=== PATIENT | male | born 1955 | race Caucasian/White ===

== ENCOUNTER 2016-12-23 20:52 | Emergency (ER) | payer MEDICARE, MEDICAID ==
[2016-12-23 21:03] VITALS: BP 117/80
--- NOTE | 2016-12-23 21:36 | EDM.PDOC ---
ED HPI Trauma - General Chief Complaint: Lower Extremity Injury/Pain Stated Complaint: LEFT LEG INJURY Time Seen by Provider: 12/23/16 21:19 Source: Reports: Patient History Limitations: Reports: No limitations - History of Present Illness INITIAL COMMENTS - FREE TEXT/NARRATIVE: Patient presents with left knee, lower leg and foot pain after stepping wrong on left leg while going down stairs earlier this evening. He denies numbness, head injury or injury to arms or wrists. Allergies/ADRs: Allergies galantamine [Galantamine] Allergy (Mild, Verified 12/23/16 21:18) Itching hydrocodone Allergy (Verified 12/23/16 21:18) Confusion came in confused on 02/28/16, checked with [place] provider and patient becomes confused with hydrocodone Home Medications: Ambulatory Orders fluvoxaMINE Maleate [Fluvoxamine Maleate ER] 200 mg PO DAILY 10/09/13 [ Confirmed 12/23/16] OXcarbazepine [Trileptal] 450 mg PO BID 01/06/14 [Confirmed 12/23/16] risperiDONE [RisperiDAL] 1 mg PO BEDTIME 12/06/14 [Confirmed 12/23/16] ALPRAZolam [Alprazolam] 1 mg PO BID 10/19/15 [Confirmed 12/23/16] Cyclobenzaprine [Flexeril] 10 mg PO TID 01/24/16 [Confirmed 12/23/16] Gabapentin [Gabapentin] 600 mg PO Q6H PRN 01/24/16 [Confirmed 12/23/16] Gabapentin [Neurontin] 300 mg PO BEDTIME 01/24/16 [Confirmed 12/23/16] risperiDONE [risperiDONE] 0.5 mg PO BID 01/24/16 [Confirmed 12/23/16] Baclofen [Lioresal] 10 mg PO DAILY 07/01/16 [Confirmed 12/23/16] Omeprazole 20 mg PO DAILY 07/01/16 [Confirmed 12/23/16] atorvaSTATin [Lipitor] 20 mg PO BEDTIME 07/01/16 [Confirmed 12/23/16] diphenhydrAMINE [Benadryl] 50 mg PO BEDTIME 07/01/16 [Confirmed 12/23/16] Past Medical History - Past Health History Medical/Surgical History: Denies Medical/Surgical History HEENT History: Reports: Impaired vision, Other (see below) Other HEENT History: wound to left side of the eye. 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 trigeminal nueralgia Psychiatric History: Reports: Mood swings Other Psychiatric History: none Endocrine/Metabolic History: Reports: Obesity/BMI 30+ Hematologic History: Reports: Anticoagulation therapy Dermatologic History: Reports: Other (see below) Other Dermatologic History: Open sores to face - Infectious Disease History Infectious Disease History: Reports: Measles, MRSA - Past Surgical History HEENT Surgical History: Reports: Tonsillectomy Cardiovascular Surgical History: Reports: None Respiratory Surgical History: Reports: None GI Surgical History: Reports: None Male Surgical History: Reports: None Musculoskeletal Surgical History: Reports: None Social & Family History - Family History Family Medical History: Noncontributory Cardiac: Reports: Prior cardiac arrest, Stent Endocrine/Metabolic: Reports: Diabetes, type II Oncologic: Reports: Bone - Tobacco Use Smoking Status *Q: Current Every Day Smoker Years of Tobacco use: 40 Packs/Tins Daily: 1 Used Tobacco, but Quit: No Month Tobacco Last Used: july 2015 Second Hand Smoke Exposure: Yes - Alcohol Use Days Per Week of Alcohol Use: 0 - Recreational Drug Use Recreational Drug Use: No Drug Use in Last 12 Months: No - Living Situation & Occupation Living situation: Reports: single, with significant other Occupation: disabled Review of Systems - Review of Systems Review Of Systems: See Below Constitutional: Denies: chills, fever Eyes: Denies: vision change Ears: Denies: dizziness Respiratory: Denies: Shortness of Breath Cardiovascular: Denies: chest pain, syncope GI/Abdominal: Denies: Vomiting Musculoskeletal: Denies: neck pain, shoulder pain, arm pain, back pain, hand pain Skin: Denies: cyanosis, jaundice, mottled, pallor, diaphoresis Neurological: Denies: Confusion, Dizziness Trauma Exam - Physical Exam Exam: See Below Exam Limited By: No limitations General Appearance: Reports: alert, WD/WN, no apparent distress Head: Reports: atraumatic, normocephalic Ears: Reports: normal external exam, hearing grossly normal Throat/Mouth: Reports: Normal voice, No airway compromise Neck: Reports: full range of motion Respiratory Exam: Reports: no respiratory distress, lungs clear, normal breath sounds Cardiovascular: Reports: regular rate, rhythm, no murmur Extremities: Reports: pain with movement (left knee flexion), tenderness (to palpation of lateral left knee and proximal dorsal left foot. No deformity or crepitus noted.). Denies: joint effusion (and no swelling), unable to bear weight (can bear weight) Neurologic: Reports: no motor/sensory deficits, alert, normal mood/affect, oriented x 3 Skin: Reports: Normal color, Warm/dry - Alexander Coma Score Best Eye Response (Alexander): (4) open spontaneously Best Verbal Response (Alexander): (5) oriented Best Motor Response ([place]): (6) obeys commands Course - Vital Signs Last Recorded V/S: Last Vital Signs Temp 98.0 F 12/23/16 21:00 Pulse 97 12/23/16 21:00 Resp 20 12/23/16 21:00 BP 117/80 12/23/16 21:00 Pulse Ox 96 12/23/16 21:00 - Orders/Labs/Meds Orders: Active Orders 24 hr Category Date Time Status Foot 2V Lt [CR] Stat Exams 12/23/16 21:05 Ordered Foot Comp Min 3V Lt [CR] Stat Exams 12/23/16 21:24 Ordered Knee 1V or 2V Lt [CR] Stat Exams 12/23/16 21:05 Ordered Knee 3V Lt [CR] Stat Exams 12/23/16 21:24 Ordered Tibia Fibula Lt [CR] Stat Exams 12/23/16 21:24 Ordered - Re-Assessments/Exams Free Text/Narrative Re-Assessment/Exam: 12/23/16 22:11 Xrays show no evidence of fracture or dislocation or knee, tib/fib or foot (left ). Discussed findings and treatment plan with patient after fitting him with a knee immobilizer. He expressed significant reduction in pain with the support and is able to put full weight on the leg without pain. Pt stable at discharge. Departure - Departure Time of Disposition: 21:54 Disposition: Home, Self-Care 01 Condition: good Clinical Impression: Left knee sprain Qualifiers: Encounter type: initial encounter Involved ligament of knee: unspecified ligament Qualified Code(s): S83.92XA - Sprain of unspecified site of left knee, initial encounter Instructions: Knee Sprain, [id number] Forms: ED Department Discharge Additional Instructions: 1. Wear knee immobilizer for 1-2 weeks as needed for support and comfort. 2. Use Ibuprofen 600 mg three times a day as needed for pain or Tylenol 650 mg up to three times a day as needed for pain. 3. Follow up with your PCP if worsening or if not improving in a week. - My Orders Last 24 Hours: My Active Orders 12/23/16 21:05 Foot 2V Lt [CR] Stat Knee 1V or 2V Lt [CR] Stat 12/23/16 21:24 Foot Comp Min 3V Lt [CR] Stat Knee 3V Lt [CR] Stat Tibia Fibula Lt [CR] Stat - Assessment/Plan Last 24 Hours: My Active Orders 12/23/16 21:05 Foot 2V Lt [CR] Stat Knee 1V or 2V Lt [CR] Stat 12/23/16 21:24 Foot Comp Min 3V Lt [CR] Stat Knee 3V Lt [CR] Stat Tibia Fibula Lt [CR] Stat
== END 2016-12-23 22:15 | disposition home or self-care (01) ==
LOC: KA.ED 20:52
DX: S83.92XA Sprain of unspecified site of left knee, initial encounter (principal); E78.00 Pure hypercholesterolemia, unspecified; I10 Essential (primary) hypertension; I25.2 Old myocardial infarction; J44.9 Chronic obstructive pulmonary disease, unspecified; E66.9 Obesity, unspecified; F17.210 Nicotine dependence, cigarettes, uncomplicated; Z98.890 Other specified postprocedural states; Z88.6 Allergy status to analgesic agent; Z88.8 Allergy status to other drugs, medicaments and biological substances; W10.9XXA Fall (on) (from) unspecified stairs and steps, initial encounter
CPT/HCPCS: 73562-LT; 73590-LT; 73630-LT; 99283

== ENCOUNTER 2017-01-04 09:29 | Emergency (ER) | payer MEDICARE, MEDICAID ==
[2017-01-04 10:03] VITALS: BP 145/74
--- NOTE | 2017-01-04 10:13 | EDM.PDOC ---
ED HPI Trauma - General Chief Complaint: Lower Extremity Injury/Pain Stated Complaint: ankle pain Time Seen by Provider: 01/04/17 10:00 Source: Reports: Patient History Limitations: Reports: No limitations - History of Present Illness INITIAL COMMENTS - FREE TEXT/NARRATIVE: 61 YO WM presents to ER complaining of left foot and left ankle pain after tripping over his dog this am. Pt was seen December 23 2016 for knee injury. Pt has a nondisplaced and incomplete fracture of lateral tibial plateau. Pt denies any other injury after fall today. Symptom Onset Date: 01/04/17 Occurred When: this morning Occurred Where: home Method of Injury: fall Severity: mild Pain/Injury Location: Reports: lower extremity, left Consciousness: Reports: no loss of consciousness Associated Symptoms: Reports: no other symptoms Allergies/ADRs: Allergies galantamine [Galantamine] Allergy (Mild, Verified 01/04/17 09:51) Itching hydrocodone Allergy (Verified 01/04/17 09:51) Confusion came in confused on 02/28/16, checked with [place] provider and patient becomes confused with hydrocodone Home Medications: Ambulatory Orders fluvoxaMINE Maleate [Fluvoxamine Maleate ER] 200 mg PO DAILY 10/09/13 [ Confirmed 01/04/17] OXcarbazepine [Trileptal] 450 mg PO BID 01/06/14 [Confirmed 01/04/17] risperiDONE [RisperiDAL] 1 mg PO BEDTIME 12/06/14 [Confirmed 01/04/17] ALPRAZolam [Alprazolam] 1 mg PO BID 10/19/15 [Confirmed 01/04/17] Cyclobenzaprine [Flexeril] 10 mg PO TID 01/24/16 [Confirmed 01/04/17] Gabapentin [Gabapentin] 600 mg PO Q6H PRN 01/24/16 [Confirmed 01/04/17] Gabapentin [Neurontin] 300 mg PO BEDTIME 01/24/16 [Confirmed 01/04/17] risperiDONE [risperiDONE] 0.5 mg PO BID 01/24/16 [Confirmed 01/04/17] Baclofen [Lioresal] 10 mg PO DAILY 07/01/16 [Confirmed 01/04/17] Omeprazole 20 mg PO DAILY 07/01/16 [Confirmed 01/04/17] atorvaSTATin [Lipitor] 20 mg PO BEDTIME 07/01/16 [Confirmed 01/04/17] diphenhydrAMINE [Benadryl] 50 mg PO BEDTIME 07/01/16 [Confirmed 01/04/17] Past Medical History - Past Health History Medical/Surgical History: Denies Medical/Surgical History HEENT History: Reports: Impaired vision, Other (see below) Other HEENT History: wound to left side of the eye. 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 trigeminal nueralgia Psychiatric History: Reports: Anxiety, Mood swings Other Psychiatric History: none Endocrine/Metabolic History: Reports: Obesity/BMI 30+ Hematologic History: Reports: Anticoagulation therapy Dermatologic History: Reports: Other (see below) Other Dermatologic History: Open sores to face - Infectious Disease History Infectious Disease History: Reports: Measles, MRSA - Past Surgical History HEENT Surgical History: Reports: Tonsillectomy Cardiovascular Surgical History: Reports: None Respiratory Surgical History: Reports: None GI Surgical History: Reports: None Male Surgical History: Reports: None Musculoskeletal Surgical History: Reports: None Social & Family History - Family History Family Medical History: Noncontributory Cardiac: Reports: Prior cardiac arrest, Stent Endocrine/Metabolic: Reports: Diabetes, type II Oncologic: Reports: Bone - Tobacco Use Smoking Status *Q: Current Every Day Smoker Years of Tobacco use: 40 Packs/Tins Daily: 1 Used Tobacco, but Quit: No Month Tobacco Last Used: july 2015 Second Hand Smoke Exposure: Yes - Caffeine Use Caffeine Use: Reports: Soda - Alcohol Use Days Per Week of Alcohol Use: 0 - Recreational Drug Use Recreational Drug Use: No Drug Use in Last 12 Months: No Recreational Drug Type: Reports: Marijuana/Hashish Recreational Drug Use Frequency: Not Used In Over 6 Months - Living Situation & Occupation Living situation: Reports: single, with significant other Occupation: disabled Review of Systems - Review of Systems Review Of Systems: See Below Constitutional: Reports: no symptoms Eyes: Reports: no symptoms Ears: Reports: no symptoms Nose: Reports: no symptoms Mouth/Throat: Reports: no symptoms Respiratory: Reports: No Symptoms Cardiovascular: Reports: no symptoms GI/Abdominal: Reports: No symptoms Musculoskeletal: Reports: leg pain, foot pain Neurological: Reports: No Symptoms Psychiatric: Reports: no symptoms Trauma Exam - Physical Exam Exam: See Below Exam Limited By: No limitations General Appearance: Reports: alert, WD/WN, no apparent distress Head: Reports: atraumatic, normocephalic Eyes: bilateral eye: PERRL Ears: Reports: normal external exam, normal canal, hearing grossly normal, normal TMs Nose: Reports: normal inspection, normal mucousa, no blood Throat/Mouth: Reports: Normal inspection, Normal lips, Normal teeth, Normal gums , Normal oropharynx, Normal voice, No airway compromise Neck: Reports: non-tender, full range of motion, normal alignment, normal inspection Respiratory Exam: Reports: no respiratory distress, lungs clear, normal breath sounds Cardiovascular: Reports: normal peripheral pulses, regular rate, rhythm, no edema, no gallop, no JVD, no murmur, no rub GI/Abdominal: Reports: normal bowel sounds, soft, non tender, no organomegaly, no distention, no abnormal bruit, no mass Back: Reports: full range of motion, normal inspection, non-tender Extremities: Reports: bony-point tenderness, pain with movement Neurologic: Reports: 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, no motor/sensory deficits, alert , normal mood/affect, oriented x 3 Skin: Reports: Normal color, Warm/dry Course - Vital Signs Last Recorded V/S: Last Vital Signs Temp 37.3 C 01/04/17 10:02 Pulse 73 01/04/17 10:02 Resp 18 01/04/17 10:02 BP 145/74 H 01/04/17 10:02 Pulse Ox 96 01/04/17 10:02 - Orders/Labs/Meds Orders: Active Orders 24 hr Category Date Time Status Ankle Min 3V Lt [CR] Stat Exams 01/04/17 09:43 Ordered Foot Comp Min 3V Lt [CR] Stat Exams 01/04/17 09:42 Ordered Departure - Departure Time of Disposition: 10:16 Disposition: Home, Self-Care 01 Condition: good Clinical Impression: Left ankle sprain Qualifiers: Encounter type: initial encounter Involved ligament of ankle: unspecified ligament Qualified Code(s): S93.402A - Sprain of unspecified ligament of left ankle, initial encounter Sprain of foot, left Qualifiers: Encounter type: initial encounter Qualified Code(s): S93.602A - Unspecified sprain of left foot, initial encounter Instructions: Ankle Sprain, [id number], Foot Sprain Referrals: Mal Gonsalez, PST MANAGER [Primary Care Provider] - Forms: ED Department Discharge - My Orders Last 24 Hours: My Active Orders 01/04/17 09:42 Foot Comp Min 3V Lt [CR] Stat 01/04/17 09:43 Ankle Min 3V Lt [CR] Stat - Assessment/Plan Last 24 Hours: My Active Orders 01/04/17 09:42 Foot Comp Min 3V Lt [CR] Stat 01/04/17 09:43 Ankle Min 3V Lt [CR] Stat Assessment:: 1. left ankle sprain 2. left foot sprain Plan: 1. continue knee immobilizer and crutches 2. follow up with Mal Gonsalez as scheduled today 3. toradol for pain
[2017-01-04] MEDS ORDERED: Ketorolac 60 MG/2 ML SDV IM ONE (10:16)
== END 2017-01-04 10:30 | disposition home or self-care (01) ==
LOC: KA.ED 09:29
DX: S93.402A Sprain of unspecified ligament of left ankle, initial encounter (principal); S93.602A Unspecified sprain of left foot, initial encounter; H54.7 Unspecified visual loss; E78.00 Pure hypercholesterolemia, unspecified; J44.9 Chronic obstructive pulmonary disease, unspecified; E66.9 Obesity, unspecified; F17.210 Nicotine dependence, cigarettes, uncomplicated; Z88.5 Allergy status to narcotic agent; Z79.899 Other long term (current) drug therapy; W01.0XXA Fall on same level from slipping, tripping and stumbling without subsequent striking against object, initial encounter
CPT/HCPCS: 73610; 73620; 96372; 99283; J1885

== ENCOUNTER 2017-03-14 17:49 | Emergency (ER) | payer MEDICARE, MEDICAID ==
--- NOTE | 2017-03-14 18:27 | EDM.PDOC ---
ED HPI GENERAL MEDICAL PROBLEM - General Chief Complaint: Upper Extremity Injury/Pain Stated Complaint: RIGHT ARM SWOLLEN Time Seen by Provider: 03/14/17 18:21 Source of Information: Reports: Patient History Limitations: Reports: No Limitations - History of Present Illness INITIAL COMMENTS - FREE TEXT/NARRATIVE: PT PRESENTS WITH PAIN AND SWELLING OF RIGHT ELBOW. ANTERIOR ASPECT MORE PAINFUL. NO SWELLING OR PAIN PROXIMAL OR DISTAL OF RUE. DENIES ANY INJURY, FEVER , CP, SOB, RADICULAR PAIN, IV DRUG USE, RECENT IV INSERTION OR NEEDLE STICK. Onset: Today Onset Date: 03/14/17 Location: Reports: Upper Extremity, Right Quality: Reports: Pressure Severity: Mild Improves with: Reports: None Worsens with: Reports: None Associated Symptoms: Reports: No Other Symptoms right elbow and upper arm Pain Score (Numeric/FACES): 9 - Related Data Allergies Allergy/AdvReac Type Severity Reaction Status Date / Time galantamine [Galantamine] Allergy Mild Itching Verified 03/14/17 18:16 bee venom protein (honey bee) Allergy Swelling Verified 03/14/17 18:16 hydrocodone Allergy Confusion Verified 03/14/17 18:16 Home Meds: Home Meds fluvoxaMINE Maleate [Fluvoxamine Maleate ER] 200 mg PO DAILY 10/09/13 [History] OXcarbazepine [Trileptal] 450 mg PO BID 01/06/14 [History] risperiDONE [RisperiDAL] 1 mg PO BEDTIME 12/06/14 [History] ALPRAZolam [Alprazolam] 1 mg PO BID 10/19/15 [History] Cyclobenzaprine [Flexeril] 10 mg PO TID 01/24/16 [History] Gabapentin [Gabapentin] 600 mg PO Q6H PRN 01/24/16 [History] Gabapentin [Neurontin] 300 mg PO BEDTIME 01/24/16 [History] risperiDONE [risperiDONE] 0.5 mg PO BID 01/24/16 [History] Baclofen [Lioresal] 10 mg PO DAILY 07/01/16 [History] Omeprazole 20 mg PO DAILY 07/01/16 [History] atorvaSTATin [Lipitor] 20 mg PO BEDTIME 07/01/16 [History] diphenhydrAMINE [Benadryl] 50 mg PO BEDTIME 07/01/16 [History] Past Medical History - Past Health History Medical/Surgical History: Denies Medical/Surgical History HEENT History: Reports: Impaired Vision, Other (See Below) Other HEENT History: wound to left side of the eye. 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 trigeminal nueralgia Psychiatric History: Reports: Anxiety, Mood Swings Other Psychiatric History: none Endocrine/Metabolic History: Reports: Obesity/BMI 30+ Hematologic History: Reports: Anticoagulation Therapy Dermatologic History: Reports: Other (See Below) Other Dermatologic History: Open sores to face - Infectious Disease History Infectious Disease History: Reports: Measles, MRSA - Past Surgical History GI Surgical History: Reports: None Male Surgical History: Reports: None Social & Family History - Family History Family Medical History: Noncontributory Cardiac: Reports: Prior Cardiac Arrest, Stent Endocrine/Metabolic: Reports: Diabetes, type II Oncologic: Reports: Bone - Tobacco Use Smoking Status *Q: Current Every Day Smoker Years of Tobacco use: 40 Packs/Tins Daily: 1 Used Tobacco, but Quit: No Month Tobacco Last Used: March 2017 Second Hand Smoke Exposure: Yes - Caffeine Use Caffeine Use: Reports: Soda - Alcohol Use Days Per Week of Alcohol Use: 0 - Recreational Drug Use Recreational Drug Use: No Drug Use in Last 12 Months: No Recreational Drug Type: Reports: Marijuana/Hashish Recreational Drug Use Frequency: Not Used In Over 6 Months - Living Situation & Occupation Living situation: Reports: Single, with Significant Other Occupation: Disabled Review of Systems - Review of Systems Review Of Systems: ROS reveals no pertinent complaints other than HPI. Constitutional: Reports: No Symptoms Eyes: Reports: No Symptoms Ears: Reports: No Symptoms Nose: Reports: No Symptoms Mouth/Throat: Reports: No Symptoms Respiratory: Reports: No Symptoms Cardiovascular: Reports: No Symptoms GI/Abdominal: Reports: No Symptoms Genitourinary: Reports: No Symptoms Musculoskeletal: Reports: Arm Pain (RIGHT ELBOW) Skin: Reports: Other (LEFT ANTERIOR ELBOW EDEMA AND TENDER TO PALP) Neurological: Reports: No Symptoms Psychiatric: Reports: No Symptoms ED EXAM, GENERAL - Physical Exam Exam: See Below Exam Limited By: No Limitations General Appearance: Alert, WD/WN, No Apparent Distress Throat/Mouth: Normal Inspection, Normal Oropharynx, No Airway Compromise Head: Atraumatic, Normocephalic Respiratory/Chest: No Respiratory Distress, Lungs Clear Cardiovascular: Regular Rate, Rhythm, No Murmur Extremities: Arm Pain (RIGHT ANTECUBITAL EDEMA / BRACHIAL VEIN TORTUOUS / NO DISTAL OR PROXIMAL EDEMA NOTED) Neurological: Alert, Oriented, Normal Cognition Psychiatric: Normal Affect, Normal Mood Skin Exam: Warm, Dry, Intact, Normal Color, No Rash Lymphatic: No Adenopathy Course - Vital Signs Last Recorded V/S: Last Vital Signs Temp 98.7 F 03/14/17 17:54 Pulse 90 03/14/17 17:54 Resp 20 03/14/17 17:54 BP 114/67 03/14/17 17:54 Pulse Ox 94 L 03/14/17 17:54 - Re-Assessments/Exams Free Text/Narrative Re-Assessment/Exam: 03/14/17 18:30 PT AFEBRILE, NONTOXIC APPEARING, VSS. WILL HAVE PT UNDERGO US OF RUE AT 1100 TOMORROW Departure - Departure Time of Disposition: 18:29 Disposition: Home, Self-Care 01 Condition: Good Clinical Impression: Edema of upper extremity - Discharge Information Instructions: Phlebitis, [id number] Forms: ED Department Discharge Additional Instructions: FOLLOW UP TOMORROW AT 1100 FOR ULTRASOUND - Assessment/Plan Assessment:: RIGHT ARM PAIN AND SWELLING Plan: US IN AM
== END 2017-03-14 18:35 | disposition home or self-care (01) ==
LOC: KA.ED 17:49
CPT/HCPCS: 99283

== ENCOUNTER 2017-08-21 09:35 | Emergency (ER) | payer MEDICARE, MEDICAID ==
[2017-08-21] MEDS ORDERED: Sodium Chloride 0.9% 1,000 ML IV ONE ×2 (10:10→11:20)
--- NOTE | 2017-08-21 10:12 | EDM.PDOC ---
ED HPI GENERAL MEDICAL PROBLEM - General Chief Complaint: Syncope Time Seen by Provider: 08/21/17 09:52 Source of Information: Reports: Patient History Limitations: Reports: No Limitations - History of Present Illness INITIAL COMMENTS - FREE TEXT/NARRATIVE: Patient presents to ER with shortness of breath and syncopal episode. He fell and hit the left side of his face he says. He says the shortness of breath has been going on for a week but is worse today. Pt has known MRSA and a chronic left facial open wound that he picks and scratches that has been present for years. Treatments HAT IRONER: Reports: Oxygen, Other (see below) Other Treatments HAT IRONER: iv - Related Data Allergies Allergy/AdvReac Type Severity Reaction Status Date / Time galantamine [Galantamine] Allergy Mild Itching Verified 03/14/17 18:16 bee venom protein (honey bee) Allergy Swelling Verified 03/14/17 18:16 hydrocodone Allergy Confusion Verified 03/14/17 18:16 Home Meds: Home Meds fluvoxaMINE Maleate [Fluvoxamine Maleate ER] 200 mg PO BEDTIME 10/09/13 [History ] OXcarbazepine [Trileptal] 450 mg PO BID 01/06/14 [History] risperiDONE [RisperiDAL] 1 mg PO BID 12/06/14 [History] ALPRAZolam [Alprazolam] 1 mg PO BID PRN 10/19/15 [History] Gabapentin [Gabapentin] 600 mg PO Q6H PRN 01/24/16 [History] Gabapentin [Neurontin] 300 mg PO BEDTIME 01/24/16 [History] risperiDONE [risperiDONE] 0.5 mg PO BEDTIME 01/24/16 [History] Omeprazole 20 mg PO DAILY 07/01/16 [History] diphenhydrAMINE [Benadryl] 50 mg PO BEDTIME 07/01/16 [History] Doxepin HCl [Doxepin] 20 mg PO BEDTIME 08/21/17 [History] Rivaroxaban [Xarelto] 20 mg PO DAILY@1800 08/21/17 [History] fluvoxaMINE [Luvox] 150 mg PO DAILY 08/21/17 [History] Past Medical History - Past Health History Medical/Surgical History: Denies Medical/Surgical History HEENT History: Reports: Impaired Vision, Other (See Below) Other HEENT History: wound to left side of the eye. left eye is covered by a telfa that is covering wound on face Cardiovascular History: Reports: Arrhythmia, Blood Clots/VTE/DVT, High Cholesterol, Hypertension, [place] Respiratory History: Reports: Bronchitis, Recurrent, COPD, PE Gastrointestinal History: Reports: PUD Musculoskeletal History: Reports: Fracture, Other (See Below) Other Musculoskeletal History: osteomyelitis, face Neurological History: Reports: Other (See Below) Other Neuro History: brain surgery to cover nerve endings x 2 last surgery 1999. trigeminal nueralgia Psychiatric History: Reports: Anxiety, Mood Swings Other Psychiatric History: none Endocrine/Metabolic History: Reports: Obesity/BMI 30+ Hematologic History: Reports: Anticoagulation Therapy Dermatologic History: Reports: Other (See Below) Other Dermatologic History: Open sores to face - Infectious Disease History Infectious Disease History: Reports: Measles, MRSA - Past Surgical History GI Surgical History: Reports: None Male Surgical History: Reports: None Social & Family History - Family History Family Medical History: Noncontributory Cardiac: Reports: Prior Cardiac Arrest, Stent Endocrine/Metabolic: Reports: Diabetes, type II Oncologic: Reports: Bone - Tobacco Use Smoking Status *Q: Current Every Day Smoker Years of Tobacco use: 40 Packs/Tins Daily: 1 Used Tobacco, but Quit: No Month Tobacco Last Used: March 2017 Second Hand Smoke Exposure: Yes - Caffeine Use Caffeine Use: Reports: Soda - Alcohol Use Days Per Week of Alcohol Use: 0 - Recreational Drug Use Recreational Drug Use: No Drug Use in Last 12 Months: No Recreational Drug Type: Reports: Marijuana/Hashish Recreational Drug Use Frequency: Not Used In Over 6 Months - Living Situation & Occupation Living situation: Reports: Single, with Significant Other Occupation: Disabled ED ROS GENERAL - Review of Systems Review Of Systems: See Below Constitutional: Denies: Fever, Chills HEENT: Reports: Ear Discharge (left eye has purulent discharge and is covered by a patch that is covering the entire left side of patient's face whenever he is out in public). Denies: Throat Pain, Vision Change (he says he can see out of left eye okay) Respiratory: Reports: Shortness of Breath, Cough Cardiovascular: Reports: Blood Pressure Problem (low today), Lightheadedness, Syncope. Denies: Chest Pain GI/Abdominal: Denies: Abdominal Pain, Nausea, Vomiting : Denies: Dysuria Musculoskeletal: Denies: Neck Pain, Shoulder Pain, Arm Pain, Back Pain Skin: Denies: Cyanosis, Jaundice, Mottled, Pallor, Diaphoresis Neurological: Reports: Syncope. Denies: Confusion, Dizziness, Headache, Seizure Psychiatric: Denies: Agitation, Confusion - Physical Exam Exam: See Below General Appearance: Alert (sleepy), WD/WN, No Apparent Distress Eye Exam: Right Eye: Normal Inspection (left has purulent drainage; this is chronic), PERRL Ears: Normal External Exam, Normal Canal, Hearing Grossly Normal, Normal TMs Nose: Normal Inspection, No Blood Throat/Mouth: Normal Voice, No Airway Compromise, Other Head Exam: Normocephalic, Facial Lacerations (chronic open wound on left cheek from corner of mouth to lower eyelid from OCD scratching and picking) Respiratory/Chest: No Respiratory Distress, Crackles (R>L lung bases), Rhonchi ( transient), Wheezing (transient) Cardiovascular: Normal Peripheral Pulses, Regular Rate, Rhythm GI/Abdominal: Normal Bowel Sounds, Soft, Non-Tender, No Organomegaly Neuro Exam (Abbreviated): Alert, Oriented, Normal Cognition, No Motor/Sensory Deficits Extremities: Normal Inspection, Normal Range of Motion, No Pedal Edema Psychiatric: Flat Affect Skin Exam: Warm, Dry, Normal Color, No Rash Course - Vital Signs Last Recorded V/S: Last Vital Signs Temp 96.4 F 08/21/17 09:56 Pulse 45 L 08/21/17 11:54 Resp 16 08/21/17 11:54 BP 84/44 L 08/21/17 11:54 Pulse Ox 95 08/21/17 11:54 - Orders/Labs/Meds Orders: Active Orders 24 hr Category Date Time Status EKG Documentation Completion [RC] ASDIRECTED Care 08/21/17 12:05 Active Chest 2V [CR] Stat Exams 08/21/17 10:07 Taken Head wo Cont [CT] Stat Exams 08/21/17 10:07 Taken CULTURE BLOOD [BC] Stat Lab 08/21/17 10:20 Received CULTURE BLOOD [BC] Stat Lab 08/21/17 10:25 Received Blood Culture x2 Reflex Set [OM.PC] Stat Oth 08/21/17 10:07 Ordered EKG 12 Lead [EK] Routine Ther 08/21/17 12:05 Ordered Labs: Laboratory Tests 08/21/17 08/21/17 08/21/17 Range/Units 09:55 09:55 09:55 WBC 7.7 (5.0-10.0) 10^3/uL RBC 3.52 L (4.50-6.00) 10^6/uL Hgb 10.8 L (13.0-17.0) g/dL Hct 33.0 L (40.0-52.0) % MCV 93.9 H (82.0-92.0) fL MCH 30.8 (27.0-31.0) pg MCHC 32.8 (32.0-36.0) g/dL RDW 15.0 H (11.5-14.5) % Plt Count 303 H (150-300) 10^3/uL MPV 7.1 L (7.4-10.4) fL Neut % (Auto) 59.6 (50.0-70.0) % Lymph % (Auto) 26.1 (20.0-40.0) % Becker % (Auto) 10.4 H (2.0-8.0) % Eos % (Auto) 3.1 H (1.0-3.0) % Baso % (Auto) 0.8 (0.0-1.0) % Neut # (Auto) 4.6 (2.5-7.0) 10^3/uL Lymph # (Auto) 2.0 (1.0-4.0) 10^3/uL Becker # (Auto) 0.8 (0.1-0.8) 10^3/uL Eos # (Auto) 0.2 (0.1-0.3) 10^3/uL Baso # (Auto) 0.1 (0.0-0.1) 10^3/uL Sodium 138 (136-145) mmol/L Potassium 3.8 (3.3-5.3) mmol/L Chloride 104 (98-115) mmol/L Carbon Dioxide 27.3 (21.0-32.0) mmol/L BUN 16 (6-25) mg/dL Creatinine 1.74 H (0.51-1.17) mg/dL Est Cr Clr Drug Dosing 46.62 mL/min Estimated GFR (MDRD) 40 mL/min Glucose 108 (70-110) mg/dL Lactic Acid 1.0 (0.4-2.0) mmol/L Calcium 7.8 L (8.7-10.3) mg/dL Troponin I (0.00-0.070) ng/mL B-Natriuretic Peptide (0-100) pg/mL 08/21/17 08/21/17 Range/Units 09:55 10:07 WBC (5.0-10.0) 10^3/uL RBC (4.50-6.00) 10^6/uL Hgb (13.0-17.0) g/dL Hct (40.0-52.0) % MCV (82.0-92.0) fL MCH (27.0-31.0) pg MCHC (32.0-36.0) g/dL RDW (11.5-14.5) % Plt Count (150-300) 10^3/uL MPV (7.4-10.4) fL Neut % (Auto) (50.0-70.0) % Lymph % (Auto) (20.0-40.0) % Becker % (Auto) (2.0-8.0) % Eos % (Auto) (1.0-3.0) % Baso % (Auto) (0.0-1.0) % Neut # (Auto) (2.5-7.0) 10^3/uL Lymph # (Auto) (1.0-4.0) 10^3/uL Becker # (Auto) (0.1-0.8) 10^3/uL Eos # (Auto) (0.1-0.3) 10^3/uL Baso # (Auto) (0.0-0.1) 10^3/uL Sodium (136-145) mmol/L Potassium (3.3-5.3) mmol/L Chloride (98-115) mmol/L Carbon Dioxide (21.0-32.0) mmol/L BUN (6-25) mg/dL Creatinine (0.51-1.17) mg/dL Est Cr Clr Drug Dosing mL/min Estimated GFR (MDRD) mL/min Glucose (70-110) mg/dL Lactic Acid (0.4-2.0) mmol/L Calcium (8.7-10.3) mg/dL Troponin I 0.06 (0.00-0.070) ng/mL B-Natriuretic Peptide 21 (0-100) pg/mL Meds: Medications Discontinued Medications Generic Name Dose Route Start Last Admin Trade Name Filipe PRN Reason Stop Dose Admin Sodium Chloride 1,000 mls @ 999 mls/hr 08/21/17 10:10 08/21/17 10:00 Normal Saline IV 08/21/17 11:10 999 mls/hr .BOLUS ONE Administration Sodium Chloride 1,000 mls @ 999 mls/hr 08/21/17 11:20 08/21/17 11:21 Normal Saline IV 08/21/17 12:20 999 mls/hr .BOLUS ONE Administration - Re-Assessments/Exams Free Text/Narrative Re-Assessment/Exam: 08/21/17 12:45 Patient remains hypotensive and bradycardic after 2.5 liters of saline IV. Labs and CXR show no evidence of pneumonia. EKG shows sinus bradycardia at 40 bpm. BNP, troponin, and lactic acid are normal. Patient is on Xarelto for history of DVT/PE. 08/21/17 13:[address] Fisher (cardiology) and Dr. Belcher (ED) at [facility]. They accept for transfer to ER. Patient has remained stable throughout ER course. Departure - Departure Time of Disposition: 13:14 Disposition: DC/Tfer to Acute Hospital 02 Condition: Good Clinical Impression: Sinus bradycardia, Personal history of MRSA (methicillin resistant Staphylococcus aureus) Hypotension Qualifiers: Hypotension type: unspecified hypotension type Qualified Code(s): I95.9 - Hypotension, unspecified - Discharge Information Referrals: PCP,Unobtain [Primary Care Provider] - Forms: ED Department Discharge - My Orders Last 24 Hours: My Active Orders 08/21/17 10:07 Chest 2V [CR] Stat Head wo Cont [CT] Stat Blood Culture x2 Reflex Set [OM.PC] Stat 08/21/17 10:20 CULTURE BLOOD [BC] Stat 08/21/17 10:25 CULTURE BLOOD [BC] Stat 08/21/17 12:05 EKG Documentation Completion [RC] ASDIRECTED EKG 12 Lead [EK] Routine - Assessment/Plan Last 24 Hours: My Active Orders 08/21/17 10:07 Chest 2V [CR] Stat Head wo Cont [CT] Stat Blood Culture x2 Reflex Set [OM.PC] Stat 08/21/17 10:20 CULTURE BLOOD [BC] Stat 08/21/17 10:25 CULTURE BLOOD [BC] Stat 08/21/17 12:05 EKG Documentation Completion [RC] ASDIRECTED EKG 12 Lead [EK] Routine
[2017-08-21 11:55] VITALS: BP 84/44
== END 2017-08-21 13:35 ==
LOC: KA.ED 09:35
DX: I95.9 Hypotension, unspecified (principal); R00.1 Bradycardia, unspecified; Z86.14 Personal history of Methicillin resistant Staphylococcus aureus infection; I10 Essential (primary) hypertension; E78.00 Pure hypercholesterolemia, unspecified; Z79.01 Long term (current) use of anticoagulants; F17.210 Nicotine dependence, cigarettes, uncomplicated; Z79.899 Other long term (current) drug therapy; Z88.5 Allergy status to narcotic agent; Z88.8 Allergy status to other drugs, medicaments and biological substances; Z91.030 Bee allergy status; R06.02 Shortness of breath
CPT/HCPCS: 36415; 70450; 71010; 80048; 83605; 83880; 84484; 85025; 87040; 93005; 96360; 96361; 99284; 99285; J7030

== ENCOUNTER 2018-12-25 19:25 | Emergency (ER) | payer MEDICARE, MEDICAID ==
[2018-12-25 19:41] VITALS: BP 121/67
--- NOTE | 2018-12-25 19:42 | EDM.PDOC ---
ED HPI GENERAL MEDICAL PROBLEM - General Chief Complaint: Chest Pain Stated Complaint: RIGHT SIDE CHEST PRESSURE Time Seen by Provider: 12/25/18 19:41 Source of Information: Reports: Patient History Limitations: Reports: No Limitations - History of Present Illness INITIAL COMMENTS - FREE TEXT/NARRATIVE: Was raking his yard yesterday wearing only a light T-shirt and got slightly chilled. Today upon awakening had pleuritic type chest wall discomfort predominantly right posterior chest wall as well as into right axilla. Pain only with motion specifically inspiration and raising of arm positioning chest wall. Denies fever or chills. Denies any left sided discomfort, shortness of breath, chest pressure or other cardiac-like symptoms. Has had pleurisy in the past but does not remember when. Onset: Today Onset Date: 12/25/18 Onset Time: 09:00 Duration: Hour(s):, Chronic, Recurring Location: Reports: Chest, Upper Extremity, Right Quality: Reports: Burning, Sharp Severity: Moderate Improves with: Reports: None Worsens with: Reports: Breathing, Movement Context: Reports: Activity Associated Symptoms: Reports: No Other Symptoms Right Chest Pain Score (Numeric/FACES): 6 - Related Data Allergies Allergy/AdvReac Type Severity Reaction Status Date / Time galantamine [Galantamine] Allergy Mild Itching Verified 12/25/18 19:42 bee venom protein (honey bee) Allergy Swelling Verified 12/25/18 19:42 hydrocodone Allergy Confusion Verified 12/25/18 19:42 Home Meds: Home Meds fluvoxaMINE Maleate [Fluvoxamine Maleate ER] 200 mg PO BEDTIME 10/09/13 [History ] OXcarbazepine [Trileptal] 450 mg PO BID 01/06/14 [History] risperiDONE [RisperiDAL] 1 mg PO BID 12/06/14 [History] ALPRAZolam [Alprazolam] 1 mg PO BID PRN 10/19/15 [History] risperiDONE 0.5 mg PO BEDTIME 01/24/16 [History] Doxepin HCl [Doxepin] 10 mg PO TID 08/21/17 [History] fluvoxaMINE [Luvox] 150 mg PO DAILY 08/21/17 [History] Rivaroxaban [Xarelto] 10 mg PO DAILY@1800 12/25/18 [History] Past Medical History HEENT History: Reports: Impaired Vision, Other (See Below) Other HEENT History: wound to left side of the eye. left eye is covered by a telfa that is covering wound on face Cardiovascular History: Reports: Arrhythmia, Blood Clots/VTE/DVT, High Cholesterol, Hypertension, [place] Respiratory History: Reports: Bronchitis, Recurrent, COPD, PE Gastrointestinal History: Reports: PUD Musculoskeletal History: Reports: Fracture, Other (See Below) Other Musculoskeletal History: osteomyelitis, face Neurological History: Reports: Other (See Below) Other Neuro History: brain surgery to cover nerve endings x 2 last surgery 1999. trigeminal nueralgia Psychiatric History: Reports: Anxiety, Mood Swings Other Psychiatric History: none Endocrine/Metabolic History: Reports: Obesity/BMI 30+ Hematologic History: Reports: Anticoagulation Therapy Dermatologic History: Reports: Other (See Below) Other Dermatologic History: Open sores to face - Infectious Disease History Infectious Disease History: Reports: Measles, MRSA - Past Surgical History Other Head Surgeries/Procedures: Trigeminal neuralgia nerve block GI Surgical History: Reports: None Male Surgical History: Reports: None Social & Family History - Family History Family Medical History: Noncontributory Cardiac: Reports: Prior Cardiac Arrest, Stent Endocrine/Metabolic: Reports: Diabetes, type II Oncologic: Reports: Bone - Tobacco Use Smoking Status *Q: Current Every Day Smoker Tobacco Use Within Last Twelve Months: Cigarettes Used Tobacco, but Quit: No Smoking Cessation Information Provided To Patient: Patient Refused Second Hand Smoke Exposure: No Second Hand Smoke Education Provided: No - Caffeine Use Caffeine Use: Reports: Soda - Alcohol Use Alcohol Use History: No Alcohol Use in Last Twelve Months: No - Living Situation & Occupation Living situation: Reports: Single, with Significant Other Occupation: Disabled ED ROS GENERAL - Review of Systems Review Of Systems: See Below Constitutional: Reports: No Symptoms HEENT: Reports: Other (Chronic facial nerve involvement) Respiratory: Reports: No Symptoms Cardiovascular: Reports: No Symptoms. Denies: Dyspnea on Exertion, Edema, Orthopnea Endocrine: Reports: No Symptoms GI/Abdominal: Reports: No Symptoms : Reports: No Symptoms Musculoskeletal: Reports: Shoulder Pain, Other Skin: Reports: Other (Chronic nerve change) Neurological: Reports: Pre-Existing Deficit Psychiatric: Reports: No Symptoms Hematologic/Lymphatic: Reports: No Symptoms Immunologic: Reports: No Symptoms ED EXAM, GENERAL - Physical Exam Exam: See Below Free Text/Narrative:: Alert oriented seated in no distress. Numerous tattoos to the Chest and arms. Left-sided face is covered and he prefers to leave it that way secondary of his neurogenic issues with his trigeminal neuralgia, this prevents him from picking and rubbing. [place] moist mucous membranes Neck soft supple no lymphadenopathy Thorax is clear fine rhonchi on the right side with fremitus posterior right side as well as tenderness to palpation and tenderness with motion and deep breath. Left-sided chest is benign other than tattoo no pain no abnormal breath sounds. Abdomen soft bowel sounds present Lower extremities free of edema moves about with no difficulty. Discussed options as likely pleuritic chest wall pain or the possibility pneumonia with his smoking habituation of which she is not interested in cessation. General Appearance: Alert, WD/WN, No Apparent Distress Ears: Normal External Exam, Normal Canal, Hearing Grossly Normal, Normal TMs Nose: Normal Inspection, Normal Mucosa, No Blood Throat/Mouth: Normal Inspection, Normal Lips, Normal Teeth, Normal Gums, Normal Oropharynx, Normal Voice, No Airway Compromise Neck: Normal Inspection Respiratory/Chest: No Respiratory Distress, Lungs Clear, Rhonchi Cardiovascular: Normal Peripheral Pulses, No Murmur GI/Abdominal: Normal Bowel Sounds, Soft, Non-Tender, No Organomegaly, No Distention, No Abnormal Bruit, No Mass (Male) Exam: Deferred Rectal (Males) Exam: Deferred Back Exam: Normal Inspection (No noted rash mild tenderness right posterior rib margin changes with inspiration and expiration as well as fremitus) Extremities: Normal Inspection Neurological: Alert, Oriented, Normal Cognition, Normal Gait, No Motor/Sensory Deficits Psychiatric: Normal Affect, Normal Mood Skin Exam: Warm (Several tattoos), Dry, Intact, Normal Color, No Rash Lymphatic: No Adenopathy Course - Vital Signs Text/Narrative:: With the renal impairment that shows on his laboratory analysis a very hesitant to give him any type of anti-inflammatory analgesic at this time. As pleuritic pain is typically only benefited from anti-inflammatory I find no use in providing opiate or other forms of analgesia at this time. Strongly encouraged to see his provider to discuss medication and other options prior to any further renal distruction. Last Recorded V/S: Last Vital Signs Temp 36.1 C 12/25/18 19:38 Pulse 76 12/25/18 19:38 Resp 16 12/25/18 19:38 BP 121/67 12/25/18 19:38 Pulse Ox 97 12/25/18 19:38 - Orders/Labs/Meds Labs: Laboratory Tests 12/25/18 12/25/18 Range/Units 20:10 20:10 WBC 7.07 (5.00-10.00) 10^3/uL RBC 4.03 L (4.50-6.00) 10^6/uL Hgb 13.1 (13.0-17.0) g/dL Hct 38.7 L (40.0-52.0) % MCV 96.0 H (82.0-92.0) fL MCH 32.5 H (27.0-31.0) pg MCHC 33.9 (32.0-36.0) g/dL RDW 15.6 H (11.5-14.5) % Plt Count 292 (150-400) 10^3/uL MPV 9.4 (7.4-10.4) fL Immature Gran % (Auto) 0.1 (0.0-5.0) % Neut % (Auto) 50.1 (50.0-70.0) % Lymph % (Auto) 37.2 (20.0-40.0) % Russell % (Auto) 8.8 H (2.0-8.0) % Eos % (Auto) 3.1 H (1.0-3.0) % Baso % (Auto) 0.7 (0.0-1.0) % Immature Gran # (Auto) 0.01 (0.00-0.50) 10^3/uL Neut # (Auto) 3.54 (2.50-7.00) 10^3/uL Lymph # (Auto) 2.63 (1.00-4.00) 10^3/uL Russell # (Auto) 0.62 (0.10-0.80) 10^3/uL Eos # (Auto) 0.22 (0.10-0.30) 10^3/uL Baso # (Auto) 0.05 (0.00-0.10) 10^3/uL Sodium 137 (136-145) mmol/L Potassium 3.9 (3.3-5.3) mmol/L Chloride 99 (98-115) mmol/L Carbon Dioxide 26.6 (21.0-32.0) mmol/L Anion Gap 15.3 H (5-15) mmol/L BUN 15 (6-25) mg/dL Creatinine 1.53 H (0.51-1.17) mg/dL Est Cr Clr Drug Dosing 50.70 mL/min Estimated GFR (MDRD) 47 mL/min Glucose 90 (75 - 99) mg/dL Calcium 8.5 L (8.7-10.3) mg/dL Departure - Departure Time of Disposition: 20:55 Disposition: Home, Self-Care 01 Condition: Fair Clinical Impression: Atypical chest pain, Right-sided chest wall pain, Renal function impairment - Discharge Information *PRESCRIPTION DRUG MONITORING PROGRAM REVIEWED*: Not Applicable *COPY OF PRESCRIPTION DRUG MONITORING REPORT IN PATIENT TOÑO: Not Applicable Referrals: Mal Gonsalez SAWMILL HAND [Primary Care Provider] - Forms: ED Department Discharge Additional Instructions: He need to increase her water intake history kidney number puts it in stage III chronic failure pattern. Contact Mal at the clinic as you need to repeat lab work and discussed with him medication management and treatment options for your overall health status. Chest x-ray shows the development of COPD, consider decreasing her cigarette smoking as possible. Call or return if symptoms worsen - Problem List & Annotations (1) Pleurisy SNOMED Code(s): 230138530 Code(s): R09.1 - PLEURISY Status: Acute Priority: High Current Visit: Yes Onset Date: ~12/25/18 (2) Right-sided chest wall pain SNOMED Code(s): 425060277, 630293095 Code(s): R07.89 - OTHER CHEST PAIN Status: Acute Priority: High Current Visit: Yes Onset Date: ~12/25/18 (3) Renal function impairment SNOMED Code(s): 233387522, 081160122 Code(s): N28.9 - DISORDER OF KIDNEY AND URETER, UNSPECIFIED Status: Acute Priority: High Current Visit: Yes - Problem List Review Problem List Initiated/Reviewed/Updated: Yes - Assessment/Plan Plan: He need to increase her water intake history kidney number puts it in stage III chronic failure pattern. Contact Mal at the clinic as you need to repeat lab work and discussed with him medication management and treatment options for your overall health status. Chest x-ray shows the development of COPD, consider decreasing her cigarette smoking as possible. Call or return if symptoms worsen
[2018-12-25 20:41] LABS: ANION GAP 15.3 mmol/L (5-15)
--- NOTE | 2018-12-25 20:49 | CR ---
[id number] RAD/RAD Chest PA And Lateral EXAM: FRONTAL AND LATERAL CHEST INDICATION: Pleuritic chest wall pain and hematemesis. COMPARISON: August 21, 2017. DISCUSSION: Hyperinflation is consistent with chronic obstructive pulmonary disease. Scarring in the left lung base is similar to prior studies. No definite acute infiltrates. Normal heart size. There are chronic left lower rib fractures. IMPRESSION: 1. Chronic obstructive pulmonary disease. No acute findings. Stef Ricardo MD 12/25/18 2048 Thank you for allowing us to participate in the care of your patient.
== END 2018-12-25 21:05 | disposition home or self-care (01) ==
LOC: KA.ED 19:25
DX: R07.89 Other chest pain (principal); N28.9 Disorder of kidney and ureter, unspecified; I10 Essential (primary) hypertension; E78.00 Pure hypercholesterolemia, unspecified; I25.2 Old myocardial infarction; F41.9 Anxiety disorder, unspecified; Z79.01 Long term (current) use of anticoagulants; Z79.899 Other long term (current) drug therapy; Z91.030 Bee allergy status; Z88.6 Allergy status to analgesic agent; Z88.8 Allergy status to other drugs, medicaments and biological substances
CPT/HCPCS: 36415; 71046; 80048; 85025; 99284; 99285-25

== ENCOUNTER 2019-09-15 19:06 | Emergency (ER) | payer MEDICARE, MEDICAID ==
[2019-09-15] MEDS ORDERED: Sodium Chloride 0.9% 10 ML Syringe FLUSH PRN (19:13)
--- NOTE | 2019-09-15 19:19 | EDM.PDOC ---
ED HPI GENERAL MEDICAL PROBLEM - General Chief Complaint: General Stated Complaint: STROKE?? Time Seen by Provider: 09/15/19 19:08 Source of Information: Reports: Patient History Limitations: Reports: No Limitations - History of Present Illness INITIAL COMMENTS - FREE TEXT/NARRATIVE: Joby, 64-year-old male, last seen well by his at roughly 2200 hrs. on 14 September 2019. Today experienced falls, 4, 2 while he was having smoking products, 1 day cigarette and the other is marijuana. The other 2 events were random toppling over for unknown activity when standing as he became weak. He has had episodes of weakness over the course of a few days. His tells us he is stopped his anticoagulation therapy, and is in notified Mal Gonsalez his provider of that. His vision cautioned as to the results of not being anticoagulated with his history, and is accepted the outcome of doing such. It is noted that he carries his xarelto pills with his active medications. He denies any recent illness, denies any pain chest pain, shortness of breath or other contributing factors. Onset: Today, Gradual Duration: Hour(s): Location: Reports: Head Quality: Reports: Other (Denies any pain) Associated Symptoms: Reports: No Other Symptoms - Related Data Allergies Allergy/AdvReac Type Severity Reaction Status Date / Time galantamine [Galantamine] Allergy Mild Itching Verified 09/15/19 19:24 bee venom protein (honey bee) Allergy Swelling Verified 09/15/19 19:24 hydrocodone Allergy Confusion Verified 09/15/19 19:24 Home Meds: Home Meds fluvoxaMINE Maleate [Fluvoxamine Maleate ER] 200 mg PO BEDTIME 10/09/13 [History ] OXcarbazepine [Trileptal] 450 mg PO BID 01/06/14 [History] risperiDONE [RisperiDAL] 1 mg PO BID 12/06/14 [History] ALPRAZolam [Alprazolam] 1 mg PO BID PRN 10/19/15 [History] risperiDONE 0.5 mg PO BEDTIME 01/24/16 [History] Doxepin HCl [Doxepin] 10 mg PO TID 08/21/17 [History] fluvoxaMINE [Luvox] 150 mg PO DAILY 08/21/17 [History] Rivaroxaban [Xarelto] 10 mg PO DAILY@1800 12/25/18 [History] Past Medical History HEENT History: Reports: Impaired Vision, Other (See Below) Other HEENT History: wound to left side of the eye. left eye is covered by a telfa that is covering wound on face Cardiovascular History: Reports: Arrhythmia, Blood Clots/VTE/DVT, High Cholesterol, Hypertension, DE, Syncope Respiratory History: Reports: Bronchitis, Recurrent, COPD, PE Other Respiratory History: Pleurisy Gastrointestinal History: Reports: None, PUD Musculoskeletal History: Reports: Fracture, Other (See Below) Other Musculoskeletal History: osteomyelitis, face Neurological History: Reports: Other (See Below) Other Neuro History: brain surgery to cover nerve endings x 2 last surgery 1999. trigeminal nueralgia Psychiatric History: Reports: Anxiety, Mood Swings Other Psychiatric History: none Endocrine/Metabolic History: Reports: Obesity/BMI 30+ Hematologic History: Reports: Anticoagulation Therapy (Which he is now refused to take the past couple months.) Dermatologic History: Reports: Other (See Below) Other Dermatologic History: Open sores to face - Infectious Disease History Infectious Disease History: Reports: Measles, MRSA - Past Surgical History Head Surgeries/Procedures: Reports: Craniotomy Other Head Surgeries/Procedures: Craniotomy to the posterior fossa left of midline HEENT Surgical History: Reports: None Cardiovascular Surgical History: Reports: None Respiratory Surgical History: Reports: None GI Surgical History: Reports: None Male Surgical History: Reports: None Musculoskeletal Surgical History: Reports: None Oncologic Surgical History: Reports: None Dermatological Surgical History: Reports: Plastic Surgical Reconstruction/Repair Social & Family History - Family History Family Medical History: Noncontributory Cardiac: Reports: Prior Cardiac Arrest, Stent Endocrine/Metabolic: Reports: Diabetes, type II Oncologic: Reports: Bone - Caffeine Use Caffeine Use: Reports: Soda - Living Situation & Occupation Living situation: Reports: Single, with Significant Other Occupation: Disabled ED ROS GENERAL - Review of Systems Review Of Systems: See Below Constitutional: Reports: Weakness HEENT: Reports: No Symptoms Respiratory: Reports: No Symptoms Cardiovascular: Reports: No Symptoms. Denies: Chest Pain Endocrine: Reports: Fatigue GI/Abdominal: Reports: No Symptoms : Reports: No Symptoms Musculoskeletal: Reports: No Symptoms Skin: Reports: Rash (Left side face picking), Erythema (Left sided face), Wound (Left sided face picking) Neurological: Reports: Syncope, Difficulty Walking, Weakness Psychiatric: Reports: No Symptoms Hematologic/Lymphatic: Reports: No Symptoms Immunologic: Reports: No Symptoms ED EXAM, GENERAL - Physical Exam Exam: See Below Free Text/Narrative:: Chronic picking to the left side of the face with dressing covering this is noted. No evidence of infection is noted. Exam Limited By: No Limitations General Appearance: Alert, WD/WN, No Apparent Distress Ears: Normal External Exam, Normal Canal, Hearing Grossly Normal, Normal TMs Nose: Normal Inspection, Normal Mucosa, No Blood Throat/Mouth: Normal Inspection, Normal Oropharynx, Normal Voice. No: Normal Lips, Normal Teeth Head: Atraumatic. No: Normocephalic Neck: Normal Inspection, Supple, Non-Tender, Full Range of Motion Respiratory/Chest: No Respiratory Distress, No Accessory Muscle Use, Chest Non- Tender, Rhonchi Cardiovascular: Normal Peripheral Pulses, Regular Rate, Rhythm, Bradycardia GI/Abdominal: Normal Bowel Sounds, Soft, Non-Tender, No Organomegaly, No Distention, No Abnormal Bruit, No Mass (Male) Exam: Deferred Rectal (Males) Exam: Deferred, Other Back Exam: Normal Inspection Extremities: Normal Inspection, Normal Range of Motion, Non-Tender, Normal Capillary Refill, No Pedal Edema Neurological: Alert, Oriented, CN II-XII Intact, Normal Cognition, Normal Gait, Normal Reflexes, No Motor/Sensory Deficits Psychiatric: Normal Affect, Normal Mood Skin Exam: Warm, Dry, Intact, Normal Color, No Rash Lymphatic: No Adenopathy EKG INTERPRETATION EKG Date: 09/15/19 Time: 19:20 Rate (Beats/Min): 49 (Sinus bradycardia) QRS: Normal Comparison: Change From Previous EKG EKG Interpretation Comments: Review CKG had a ventricular rate of 40 bpm Course - Vital Signs Last Recorded V/S: Last Vital Signs Temp 36.0 C 09/15/19 19:30 Pulse 46 L 09/15/19 19:30 Resp 18 09/15/19 19:30 BP 86/45 L 09/15/19 19:30 Pulse Ox 94 L 09/15/19 19:30 - Orders/Labs/Meds Labs: Laboratory Tests 09/15/19 09/15/19 09/15/19 Range/Units 19:35 19:35 19:35 WBC 7.05 (5.00-10.00) 10^3/uL RBC 3.66 L (4.50-6.00) 10^6/uL Hgb 11.7 L (13.0-17.0) g/dL Hct 36.0 L (40.0-52.0) % MCV 98.4 H (82.0-92.0) fL MCH 32.0 H (27.0-31.0) pg MCHC 32.5 (32.0-36.0) g/dL RDW 16.1 H (11.5-14.5) % Plt Count 258 (150-400) 10^3/uL MPV 9.0 (7.4-10.4) fL Immature Gran % (Auto) 0.1 (0.0-5.0) % Neut % (Auto) 69.4 (50.0-70.0) % Lymph % (Auto) 22.4 (20.0-40.0) % [place] % (Auto) 5.8 (2.0-8.0) % Eos % (Auto) 1.7 (1.0-3.0) % Baso % (Auto) 0.6 (0.0-1.0) % Immature Gran # (Auto) 0.01 (0.00-0.50) 10^3/uL Neut # (Auto) 4.89 (2.50-7.00) 10^3/uL Lymph # (Auto) 1.58 (1.00-4.00) 10^3/uL [place] # (Auto) 0.41 (0.10-0.80) 10^3/uL Eos # (Auto) 0.12 (0.10-0.30) 10^3/uL Baso # (Auto) 0.04 (0.00-0.10) 10^3/uL PT 11.1 (8.9-11.4) SEC INR 1.1 (0.9-1.1) APTT 27.2 (23.1-31.3) SEC Sodium 139 (136-145) mmol/L Potassium 4.6 (3.3-5.3) mmol/L Chloride 103 (98-115) mmol/L Carbon Dioxide 27.8 (21.0-32.0) mmol/L Anion Gap 12.8 (5-15) mmol/L BUN 16 (6-25) mg/dL Creatinine 1.67 H (0.51-1.17) mg/dL Est Cr Clr Drug Dosing 47.36 mL/min Estimated GFR (MDRD) 42 mL/min Glucose 116 H (75 - 99) mg/dL Calcium 8.4 L (8.7-10.3) mg/dL Total Bilirubin 0.3 (0.2-1.0) mg/dL AST 12 L (15-37) U/L ALT 14 (12-78) U/L Alkaline Phosphatase 70 (46-116) IU/L Creatine Kinase 98 (26-276) U/L CK-MB (CK-2) 1.40 (0.00-4.30) ng/mL Troponin I 0.05 (0.00-0.070) ng/mL Total Protein 6.6 (6.4-8.2) g/dL Albumin 3.28 (3.00-4.80) g/dL Ethyl Alcohol < 3 (NONE DETECTED) mg/dL Meds: Medications Discontinued Medications Generic Name Dose Route Start Last Admin Trade Name Freq PRN Reason Stop Dose Admin Lactated Ringer's 1,000 mls @ 999 mls/hr 09/15/19 20:30 09/15/19 20:26 Ringers, Lactated IV 999 mls/hr ASDIRECTED JONAS Administration Lactated Ringer's 1,000 mls @ 999 mls/hr 09/15/19 20:30 09/15/19 20:30 Ringers, Lactated IV 999 mls/hr ASDIRECTED JONAS Administration Sodium Chloride 10 ml 09/15/19 19:13 Saline Flush FLUSH Q8HR PRN keep vein open - Radiology Interpretation Free Text/Narrative:: CT findings for no acute intracranial findings with clear paranasal and mastoid air cells being clear unchanged craniotomy findings compared to previous. Chest x-ray is negative for any findings of acute infiltrate, effusion, pneumothorax, nor edema. - Re-Assessments/Exams Free Text/Narrative Re-Assessment/Exam: 09/15/19 21:00 Unable to urinate after 1 L fluid, second liter hung at which time discussion with family, and patient, on no evidence of acute admission criteria being met. Joby insists on going home. He is able to seated at the side of the bed with legs dangling. No deficits noted. Remains bradycardic with no compromise noted. He is able stand with no demonstrated dizziness, or unsteadiness. He is unable to ambulate briskly 2 or 3 steps stopping backing up to be seated again on the cart with no difficulty. His Maya, would prefer that he would stay for further hydration, but Joby denies, with the 2 of them agreeing that he will go home at the conclusion of the second liter of fluid. Departure - Departure Time of Disposition: 22:35 Disposition: Home, Self-Care 01 Condition: Fair Clinical Impression: Picking own skin, Anxiety, Sinus bradycardia, Syncope and collapse Anemia Qualifiers: Anemia type: unspecified type Qualified Code(s): D64.9 - Anemia, unspecified Hypotension Qualifiers: Hypotension type: unspecified hypotension type Qualified Code(s): I95.9 - Hypotension, unspecified - Discharge Information *PRESCRIPTION DRUG MONITORING PROGRAM REVIEWED*: Not Applicable *COPY OF PRESCRIPTION DRUG MONITORING REPORT IN PATIENT TOÑO: Not Applicable Instructions: Hypotension, [id number], Bradycardia, Adult, Near-Syncope, Easy -to-Read Referrals: Mal Gonsalez, CLINICAL SUPERVISOR [Primary Care Provider] - Forms: ED Department Discharge Additional Instructions: Denies the consideration of cardiac consult for pacemaker. Recommendation for observation and fluid hydration is given, but denied. He need to go home and rest. Need to continue your medications as directed. If you're not going to take your Xarelto you need to discuss with Mal if you should be on an aspirin or not. He need to make sure drinking more water as your kidney number is elevated and the fact that we gave U2 liters of fluid and you have no urge to urinate shows that you are dehydrated. Sure he gets here appointment on Monday at the clinic with Mal, to discuss this visit as well as other concerns. Sepsis Event Note - Focused Exam Date Exam was Performed: 09/18/19 Time Exam was Performed: 00:16 - Problem List & Annotations (1) Syncope and collapse SNOMED Code(s): 855873158 Code(s): R55 - SYNCOPE AND COLLAPSE Status: Acute Priority: High (2) Picking own skin SNOMED Code(s): 692614737, 002784268 Code(s): L98.1 - FACTITIAL DERMATITIS Status: Acute Priority: Medium (3) Sinus bradycardia SNOMED Code(s): 73279812 Code(s): R00.1 - BRADYCARDIA, UNSPECIFIED Status: Chronic Priority: Medium (4) Hypotension SNOMED Code(s): 80393919 Code(s): I95.9 - HYPOTENSION, UNSPECIFIED Status: Chronic Priority: Medium Qualifiers: Hypotension type: unspecified hypotension type Qualified Code(s): I95.9 - Hypotension, unspecified (5) Anxiety SNOMED Code(s): 80807042 Code(s): F41.9 - ANXIETY DISORDER, UNSPECIFIED Status: Chronic Priority: Medium (6) Chronic renal impairment SNOMED Code(s): 251734867 Code(s): N18.9 - CHRONIC KIDNEY DISEASE, UNSPECIFIED Status: Chronic Priority: Medium Qualifiers: Chronic kidney disease stage: stage 2 (mild) Qualified Code(s): N18.2 - Chronic kidney disease, stage 2 (mild) (7) Anemia SNOMED Code(s): 641215004 Code(s): D64.9 - ANEMIA, UNSPECIFIED Status: Acute Qualifiers: Anemia type: unspecified type Qualified Code(s): D64.9 - Anemia, unspecified - Problem List Review Problem List Initiated/Reviewed/Updated: Yes - Assessment/Plan Plan: Denies the opportunity for cardiac consultation or pacemaker secondary of his bradycardia. Recommendation for observation and fluid hydration is given, but denied. He need to go home and rest. Need to continue your medications as directed. If you're not going to take your Xarelto you need to discuss with Mal if you should be on an aspirin or not. He need to make sure drinking more water as your kidney number is elevated and the fact that we gave U2 liters of fluid and you have no urge to urinate shows that you are dehydrated. Sure he gets here appointment on Monday at the clinic with Mal, to discuss this visit as well as other concerns.
[2019-09-15 19:33] VITALS: BP 86/45; PULSE 46
--- NOTE | 2019-09-15 19:51 | CR ---
[id number] RAD/RAD Chest PA or AP 1V EXAM: RAD Chest PA or AP 1V INDICATION: RASPY BREATH SOUNDS COMPARISON: December 25, 2018. DISCUSSION: Cardiomediastinal silhouette is unchanged from the prior examination. No infiltrate, effusion, pneumothorax, or edema. IMPRESSION: No acute findings. Mark Roberts MD 09/15/19 1950 Thank you for allowing us to participate in the care of your patient.
--- NOTE | 2019-09-15 20:05 | CT ---
[id number] CT/CT Head WO IV EXAM: CT Head WO IV CLINICAL DATA: MENTAL STATUS CHANGE COMPARISON STUDY: 2017. FINDINGS: No intracranial hemorrhage, extra-axial fluid collection, mass, or acute ischemia. Postsurgical change from craniotomy in the posterior fossa left of midline with underlying left cerebellar hemisphere encephalomalacia. Findings are unchanged from the prior examination. Paranasal sinuses and mastoid air cells are clear. IMPRESSION: No acute intracranial findings. Mark Roberts MD 09/15/192002 Thank you for allowing us to participate in the care of your patient.
[2019-09-15 20:14] LABS: ANION GAP 12.8 mmol/L (5-15); CHLORIDE,CL 103 mmol/L (98-115); SODIUM,NA 139 mmol/L (136-145)
[2019-09-15] MEDS ORDERED: Lactated Ringers 1,000 ML IV SCH ×2 (20:30)
== END 2019-09-15 21:30 | disposition home or self-care (01) ==
LOC: KA.ED 19:06
DX: R00.1 Bradycardia, unspecified (principal); R55 Syncope and collapse; D64.9 Anemia, unspecified; I95.9 Hypotension, unspecified; F42.4 Excoriation (skin-picking) disorder; F41.9 Anxiety disorder, unspecified; J44.9 Chronic obstructive pulmonary disease, unspecified; E66.9 Obesity, unspecified; F17.210 Nicotine dependence, cigarettes, uncomplicated; Z91.030 Bee allergy status; Z88.8 Allergy status to other drugs, medicaments and biological substances; Z88.5 Allergy status to narcotic agent; Z68.30 Body mass index [BMI] 30.0-30.9, adult; Z79.899 Other long term (current) drug therapy
CPT/HCPCS: 36415; 70450; 71045; 80053; 82550; 82553; 84484; 85025; 85610; 85730; 93005; 96360; 96361; 99284; 99285; G0480; J7120

== ENCOUNTER 2019-10-16 16:20 | Emergency (ER) | payer MEDICARE, MEDICAID ==
[2019-10-16] MEDS ORDERED: Sodium Chloride 0.9% 10 ML Syringe FLUSH PRN (16:33)
[2019-10-16] MEDS ORDERED: Sodium Chloride 0.9% 1,000 ML IV ONE (16:33)
--- NOTE | 2019-10-16 16:57 | EDM.PDOC ---
ED HPI GENERAL MEDICAL PROBLEM - General Chief Complaint: General Stated Complaint: Dizziness Time Seen by Provider: 10/16/19 16:28 Source of Information: Reports: Patient, EMS, EMS Notes Reviewed, Family History Limitations: Reports: No Limitations - History of Present Illness INITIAL COMMENTS - FREE TEXT/NARRATIVE: Patient is a 64-year-old gentleman who presents to the emergency department via EMS secondary to complaint of dizziness. Patient states that symptoms have becoming increasingly worse. He has a difficult time walking and turning. Patient was seen here in September for the same symptoms. Workup was said to be negative and patient refused to be admitted to the hospital for further evaluation. Patient states dizziness seems like everything is spinning around him. Does not make a difference if he turns head right to left, or upper down. Patient denies any change in medication. 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 Patient denies chest pain, shortness of breath, headache, blurry vision, nausea, vomiting, diarrhea, abdominal pain, out of country travel, or change of recent medication. Onset: Gradual Duration: Chronic Severity: Moderate Improves with: Reports: None Worsens with: Reports: Movement Associated Symptoms: Reports: No Other Symptoms. Denies: Chest Pain, Cough, Diaphoresis, Fever/Chills, Headaches, Nausea/Vomiting, Seizure, Shortness of Breath, Syncope - Related Data Allergies Allergy/AdvReac Type Severity Reaction Status Date / Time galantamine [Galantamine] Allergy Mild Itching Verified 10/16/19 17:03 bee venom protein (honey bee) Allergy Swelling Verified 10/16/19 17:03 hydrocodone Allergy Confusion Verified 10/16/19 17:03 Home Meds: Home Meds fluvoxaMINE Maleate [Fluvoxamine Maleate ER] 200 mg PO BEDTIME 10/09/13 [History ] OXcarbazepine [Trileptal] 450 mg PO BID 01/06/14 [History] ALPRAZolam [Alprazolam] 1 mg PO BID PRN 10/19/15 [History] fluvoxaMINE [Luvox] 150 mg PO DAILY 08/21/17 [History] Rivaroxaban [Xarelto] 10 mg PO DAILY@1800 12/25/18 [History] Past Medical History - Past Health History Medical/Surgical History: Denies Medical/Surgical History HEENT History: Reports: Impaired Vision, Other (See Below) Other HEENT History: wound to left side of the eye. 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 trigeminal nueralgia Psychiatric History: Reports: Anxiety, Mood Swings Other Psychiatric History: none Endocrine/Metabolic History: Reports: Obesity/BMI 30+ Hematologic History: Reports: Anticoagulation Therapy (Which he is now refused to take the past couple months.) Dermatologic History: Reports: Other (See Below) Other Dermatologic History: Open sores to face - Infectious Disease History Infectious Disease History: Reports: Measles, MRSA - Past Surgical History Head Surgeries/Procedures: Reports: Craniotomy HEENT Surgical History: Reports: None Cardiovascular Surgical History: Reports: None Respiratory Surgical History: Reports: None GI Surgical History: Reports: None Male Surgical History: Reports: None Musculoskeletal Surgical History: Reports: None Oncologic Surgical History: Reports: None Dermatological Surgical History: Reports: Plastic Surgical Reconstruction/Repair Social & Family History - Family History Family Medical History: Noncontributory Cardiac: Reports: Prior Cardiac Arrest, Stent Endocrine/Metabolic: Reports: Diabetes, type II Oncologic: Reports: Bone - Caffeine Use Caffeine Use: Reports: Soda - Living Situation & Occupation Living situation: Reports: Single, with Significant Other Occupation: Disabled ED ROS GENERAL - Review of Systems Review Of Systems: Comprehensive ROS is negative, except as noted in HPI. Constitutional: Reports: No Symptoms HEENT: Reports: No Symptoms Respiratory: Reports: No Symptoms Cardiovascular: Reports: No Symptoms Endocrine: Reports: No Symptoms GI/Abdominal: Reports: No Symptoms : Reports: No Symptoms Musculoskeletal: Reports: No Symptoms Skin: Reports: Other (History of Dermatillomania to left face) Psychiatric: Reports: Anxiety, Other (History of Dermatillomania) Hematologic/Lymphatic: Reports: No Symptoms Immunologic: Reports: No Symptoms ED EXAM, DIZZINESS - Physical Exam Exam: See Below Exam Limited By: No Limitations General Appearance: Alert, No Apparent Distress, Lethargic, Thin Eye Exam: Right Eye: Normal Inspection Nystagmus: short duration (Resolved in ER). No: worsens with head to L, worsens with head to R, reproducible Ears: Normal External Exam, Normal Canal, Normal TMs Nose: Normal Inspection, No Blood Throat/Mouth: Normal Inspection, Normal Oropharynx, No Airway Compromise Head Exam: Atraumatic, Normocephalic Neck: Normal Inspection, Supple, Non-Tender, Full Range of Motion. No: Lymphadenopathy (L), Lymphadenopathy (R) Respiratory/Chest: No Respiratory Distress, Lungs Clear, Normal Breath Sounds, No Accessory Muscle Use, Chest Non-Tender Cardiovascular: No Murmur, Bradycardia GI/Abdominal: Normal Bowel Sounds, Soft, Non-Tender, No Organomegaly, No Distention, No Abnormal Bruit, No Mass Neurological: Alert, Normal Mood/Affect, CN II-XII Intact, Oriented x 3 Back Exam: Normal Inspection. No: CVA Tenderness (L), CVA Tenderness (R) Extremities: Normal Inspection, No Pedal Edema Psychiatric: Normal Affect, Normal Mood Skin Exam: Warm, Dry, Intact, Normal Color, No Rash EKG INTERPRETATION EKG Date: 10/16/19 Time: 16:45 Rhythm: Other (Sinus bradycardia) Rate (Beats/Min): 40 Christmas: Normal P-Wave: Present QRS: Normal ST-T: Normal QT: Normal Comparison: No Change (From 09/15/2019) Course - Vital Signs Last Recorded V/S: Last Vital Signs Temp 97.4 F 10/16/19 16:40 Pulse 44 L 10/16/19 17:55 Resp 17 10/16/19 17:55 BP 122/54 L 10/16/19 17:55 Pulse Ox 94 L 10/16/19 17:55 - Orders/Labs/Meds Orders: Active Orders 24 hr Category Date Time Status EKG Documentation Completion [RC] ASDIRECTED Care 10/16/19 16:33 Ordered Peripheral IV Care [RC] . DIRECTED Care 10/16/19 16:34 Active Chest 1V Frontal [CR] Stat Exams 10/16/19 16:31 Ordered Head wo Cont [CT] Stat Exams 10/16/19 16:31 Ordered Sodium Chloride 0.9% [Saline Flush] Med 10/16/19 16:33 Ordered 10 ml FLUSH Q8HR PRN Peripheral IV Insertion Adult [OM.PC] Routine Oth 10/16/19 16:33 Ordered EKG 12 Lead [EK] Routine Ther 10/16/19 16:31 Ordered Medication Orders Sodium Chloride (Saline Flush) 10 ml FLUSH Q8HR PRN PRN Reason: keep vein open Labs: Laboratory Tests 10/16/19 10/16/19 10/16/19 Range/Units 16:30 16:30 16:30 WBC 7.32 (5.00-10.00) 10^3/uL RBC 3.83 L (4.50-6.00) 10^6/uL Hgb 12.0 L (13.0-17.0) g/dL Hct 36.9 L (40.0-52.0) % MCV 96.3 H (82.0-92.0) fL MCH 31.3 H (27.0-31.0) pg MCHC 32.5 (32.0-36.0) g/dL RDW 15.3 H (11.5-14.5) % Plt Count 220 (150-400) 10^3/uL MPV 10.1 (7.4-10.4) fL Immature Gran % (Auto) 0.1 (0.0-5.0) % Neut % (Auto) 70.1 H (50.0-70.0) % Lymph % (Auto) 22.0 (20.0-40.0) % [place] % (Auto) 6.6 (2.0-8.0) % Eos % (Auto) 0.8 L (1.0-3.0) % Baso % (Auto) 0.4 (0.0-1.0) % Immature Gran # (Auto) 0.01 (0.00-0.50) 10^3/uL Neut # (Auto) 5.13 (2.50-7.00) 10^3/uL Lymph # (Auto) 1.61 (1.00-4.00) 10^3/uL [place] # (Auto) 0.48 (0.10-0.80) 10^3/uL Eos # (Auto) 0.06 L (0.10-0.30) 10^3/uL Baso # (Auto) 0.03 (0.00-0.10) 10^3/uL PT 14.3 H (8.9-11.4) SEC INR 1.4 H (0.9-1.1) APTT 35.2 H (23.1-31.3) SEC Sodium 140 (136-145) mmol/L Potassium 3.6 (3.3-5.3) mmol/L Chloride 103 (98-115) mmol/L Carbon Dioxide 28.5 (21.0-32.0) mmol/L Anion Gap 12.1 (5-15) mmol/L BUN 16 (6-25) mg/dL Creatinine 1.67 H (0.51-1.17) mg/dL Est Cr Clr Drug Dosing 47.36 mL/min Estimated GFR (MDRD) 42 mL/min Glucose 111 H (75 - 99) mg/dL Calcium 8.6 L (8.7-10.3) mg/dL Total Bilirubin 0.3 (0.2-1.0) mg/dL AST 13 L (15-37) U/L ALT 13 (12-78) U/L Alkaline Phosphatase 70 (46-116) IU/L Troponin I < 0.04 (0.00-0.070) ng/mL Total Protein 6.7 (6.4-8.2) g/dL Albumin 3.46 (3.00-4.80) g/dL Urine Opiates Screen (NEGATIVE) Ur Oxycodone Screen (NEGATIVE) Urine Methadone Screen (NEGATIVE) Ur Propoxyphene Screen (NEGATIVE) Ur Barbiturates Screen (NEGATIVE) Ur Tricyclics Screen (NEGATIVE) Ur Phencyclidine Scrn (NEGATIVE) Ur Amphetamine Screen (NEGATIVE) U Methamphetamines Scrn (NEGATIVE) U Benzodiazepines Scrn (NEGATIVE) U Cocaine Metab Screen (NEGATIVE) U Marijuana (THC) Screen (NEGATIVE) Ethyl Alcohol 3 (NONE DETECTED) mg/dL 10/16/19 Range/Units 17:16 WBC (5.00-10.00) 10^3/uL RBC (4.50-6.00) 10^6/uL Hgb (13.0-17.0) g/dL Hct (40.0-52.0) % MCV (82.0-92.0) fL MCH (27.0-31.0) pg MCHC (32.0-36.0) g/dL RDW (11.5-14.5) % Plt Count (150-400) 10^3/uL MPV (7.4-10.4) fL Immature Gran % (Auto) (0.0-5.0) % Neut % (Auto) (50.0-70.0) % Lymph % (Auto) (20.0-40.0) % [place] % (Auto) (2.0-8.0) % Eos % (Auto) (1.0-3.0) % Baso % (Auto) (0.0-1.0) % Immature Gran # (Auto) (0.00-0.50) 10^3/uL Neut # (Auto) (2.50-7.00) 10^3/uL Lymph # (Auto) (1.00-4.00) 10^3/uL [place] # (Auto) (0.10-0.80) 10^3/uL Eos # (Auto) (0.10-0.30) 10^3/uL Baso # (Auto) (0.00-0.10) 10^3/uL PT (8.9-11.4) SEC INR (0.9-1.1) APTT (23.1-31.3) SEC Sodium (136-145) mmol/L Potassium (3.3-5.3) mmol/L Chloride (98-115) mmol/L Carbon Dioxide (21.0-32.0) mmol/L Anion Gap (5-15) mmol/L BUN (6-25) mg/dL Creatinine (0.51-1.17) mg/dL Est Cr Clr Drug Dosing mL/min Estimated GFR (MDRD) mL/min Glucose (75 - 99) mg/dL Calcium (8.7-10.3) mg/dL Total Bilirubin (0.2-1.0) mg/dL AST (15-37) U/L ALT (12-78) U/L Alkaline Phosphatase (46-116) IU/L Troponin I (0.00-0.070) ng/mL Total Protein (6.4-8.2) g/dL Albumin (3.00-4.80) g/dL Urine Opiates Screen Negative (NEGATIVE) Ur Oxycodone Screen Negative (NEGATIVE) Urine Methadone Screen Negative (NEGATIVE) Ur Propoxyphene Screen Negative (NEGATIVE) Ur Barbiturates Screen Negative (NEGATIVE) Ur Tricyclics Screen Negative (NEGATIVE) Ur Phencyclidine Scrn Negative (NEGATIVE) Ur Amphetamine Screen Negative (NEGATIVE) U Methamphetamines Scrn Negative (NEGATIVE) U Benzodiazepines Scrn Positive H (NEGATIVE) U Cocaine Metab Screen Negative (NEGATIVE) U Marijuana (THC) Screen Positive H (NEGATIVE) Ethyl Alcohol (NONE DETECTED) mg/dL Meds: Medications Generic Name Dose Route Start Last Admin Trade Name Freq PRN Reason Stop Dose Admin Sodium Chloride 10 ml 10/16/19 16:33 Saline Flush FLUSH Q8HR PRN keep vein open Discontinued Medications Generic Name Dose Route Start Last Admin Trade Name Freq PRN Reason Stop Dose Admin Sodium Chloride 1,000 mls @ 999 mls/hr 10/16/19 16:33 10/16/19 16:38 Normal Saline IV 10/16/19 17:33 999 mls/hr .BOLUS ONE Administration - Radiology Interpretation Free Text/Narrative:: Chest x-ray shows no acute cardiopulmonary process. CT head without contrast shows surgical and and encephalomalacic changes of posterior fossa. Recommend MRI with IV contrast - Re-Assessments/Exams Free Text/Narrative Re-Assessment/Exam: 10/16/19 18:09 Patient afebrile, heart rate remains between 35 and 45 with blood pressure between 100 over 50s to 110 over 60s. Patient denies any chest pain. Discussed case with Dr. Acosta, marine surveyor at [facility], and Dr. Buck, hospitalist. They will accept transfer of care for evaluation of bradycardia. Departure - Departure Time of Disposition: 18:12 Disposition: DC/Tfer to Acute Hospital 02 Condition: Fair Clinical Impression: Bradycardia, Dizziness - Discharge Information Referrals: Mal Gonsalez [employer] [Primary Care Provider] - Forms: ED Department Discharge Sepsis Event Note - Evaluation Sepsis Screening Result: No Definite Risk - Focused Exam Vital Signs: Vital Signs Temp Pulse Resp BP Pulse Ox 10/16/19 17:55 44 L 17 122/54 L 94 L 10/16/19 17:32 35 L 16 114/58 L 98 10/16/19 16:40 97.4 F 45 L 14 86/47 L 2 L Date Exam was Performed: 10/16/19 Time Exam was Performed: 18:14 - My Orders Last 24 Hours: My Active Orders 10/16/19 16:31 Chest 1V Frontal [CR] Stat Head wo Cont [CT] Stat EKG 12 Lead [EK] Routine 10/16/19 16:33 EKG Documentation Completion [RC] ASDIRECTED Sodium Chloride 0.9% [Saline Flush] 10 ml FLUSH Q8HR PRN Peripheral IV Insertion Adult [OM.PC] Routine 10/16/19 16:34 Peripheral IV Care [RC] . DIRECTED - Assessment/Plan Last 24 Hours: My Active Orders 10/16/19 16:31 Chest 1V Frontal [CR] Stat Head wo Cont [CT] Stat EKG 12 Lead [EK] Routine 10/16/19 16:33 EKG Documentation Completion [RC] ASDIRECTED Sodium Chloride 0.9% [Saline Flush] 10 ml FLUSH Q8HR PRN Peripheral IV Insertion Adult [OM.PC] Routine 10/16/19 16:34 Peripheral IV Care [RC] . DIRECTED Assessment:: Bradycardia Plan: Transferred to [facility]
[2019-10-16 17:15] LABS: ANION GAP 12.1 mmol/L (5-15); CHLORIDE,CL 103 mmol/L (98-115); SODIUM,NA 140 mmol/L (136-145)
[2019-10-16 17:34] LABS: BENZODIAZEPINES SCREEN,URINE POSITIVE (NEGATIVE); TCA SCREEN,URINE NEGATIVE (NEGATIVE); THC SCREEN,URINE 50 NG/ML POSITIVE (NEGATIVE)
[2019-10-16 17:35] LABS: BARBITURATE SCREEN,URINE NEGATIVE (NEGATIVE)
[2019-10-16] MEDS ORDERED: Sodium Chloride 0.9% 1,000 ML IV SCH (18:30)
[2019-10-16 18:50] VITALS: BP 135/66; PULSE 38
== END 2019-10-16 18:50 ==
LOC: KA.ED 16:20
DX: R00.1 Bradycardia, unspecified (principal); I10 Essential (primary) hypertension; I25.2 Old myocardial infarction; J44.9 Chronic obstructive pulmonary disease, unspecified; E66.9 Obesity, unspecified; F41.9 Anxiety disorder, unspecified; Z91.030 Bee allergy status; Z88.8 Allergy status to other drugs, medicaments and biological substances; Z88.5 Allergy status to narcotic agent; Z68.31 Body mass index [BMI] 31.0-31.9, adult; Z79.899 Other long term (current) drug therapy
CPT/HCPCS: 36415; 70450; 71045; 80053; 80305-QW; 84484; 85025; 85610; 85730; 93005; 96360; 99284; 99285-25; G0480; J7030

== ENCOUNTER 2019-10-24 11:54 | Emergency (ER) | payer MEDICARE, MEDICAID ==
--- NOTE | 2019-10-24 12:19 | EDM.PDOC ---
ED HPI GENERAL MEDICAL PROBLEM - General Chief Complaint: General Stated Complaint: LETHARGY Time Seen by Provider: 10/24/19 12:00 Source of Information: Reports: Patient History Limitations: Reports: No Limitations - History of Present Illness INITIAL COMMENTS - FREE TEXT/NARRATIVE: 64 YO WM presents to ER by EMS with no complaints. Pt has a caregiver who was concerned that patient was appearing weaker than normal with an episode of chest pain last night. Pt was discharged from [facility] 10/21/19 after pacemaker placement due to symptomatic bradycardia. Pt reports no complications from surgery and has been feeling fine since discharge. Pt states he had an episode of mild chest pain last night which resolved without sequela. Pt denies shortness of breath or current chest discomfort. Pt denies any pain, redness or swelling over pacemaker incision. Pt denies fever/chills, no nausea/vomiting, no dizziness or diaphoresis. Pt alert and oriented and is upset because he feels like his caregiver over-reacted when calling the ambulance. Pt is adamant he does not want to be admitted to the hospital. Pt denies any current discomfort at this time. Pt with history of tobacco/marijuana use. Onset Date: 10/23/19 Duration: Day(s): (1) Location: Reports: Chest Quality: Reports: Ache Severity: Mild Improves with: Reports: None Worsens with: Reports: None Associated Symptoms: Reports: No Other Symptoms, Chest Pain - Related Data Allergies Allergy/AdvReac Type Severity Reaction Status Date / Time galantamine [Galantamine] Allergy Mild Itching Verified 10/24/19 11:59 bee venom protein (honey bee) Allergy Swelling Verified 10/24/19 11:59 hydrocodone Allergy Confusion Verified 10/24/19 11:59 Home Meds: Home Meds fluvoxaMINE Maleate [Fluvoxamine Maleate ER] 150 mg PO 0800 10/09/13 [History] OXcarbazepine [Trileptal] 450 mg PO BID 01/06/14 [History] ALPRAZolam [Alprazolam] 1 mg PO Q8H PRN 10/19/15 [History] fluvoxaMINE [Luvox] 200 mg PO BEDTIME 08/21/17 [History] Rivaroxaban [Xarelto] 20 mg PO DAILY@1800 12/25/18 [History] Erythromycin Base [Erythromycin] 1 applic EYELF QID 10/24/19 [History] Past Medical History - Past Health History Medical/Surgical History: Denies Medical/Surgical History HEENT History: Reports: Impaired Vision, Other (See Below) Other HEENT History: wound to left side of the eye. left eye is covered by a telfa that is covering wound on face Cardiovascular History: Reports: Arrhythmia, Blood Clots/VTE/DVT, High Cholesterol, Hypertension, [place], Syncope Respiratory History: Reports: Bronchitis, Recurrent, COPD, PE Other Respiratory History: Pleurisy Gastrointestinal History: Reports: None, PUD Genitourinary History: Reports: None Musculoskeletal History: Reports: Fracture, Other (See Below) Other Musculoskeletal History: osteomyelitis, face Neurological History: Reports: Other (See Below) Other Neuro History: brain surgery to cover nerve endings x 2 last surgery 1999. trigeminal nueralgia Psychiatric History: Reports: Anxiety, Mood Swings Other Psychiatric History: none Endocrine/Metabolic History: Reports: Obesity/BMI 30+ Hematologic History: Reports: Anticoagulation Therapy (Which he is now refused to take the past couple months.) Immunologic History: Reports: None Oncologic (Cancer) History: Reports: None Dermatologic History: Reports: Other (See Below) Other Dermatologic History: Open sores to face - Infectious Disease History Infectious Disease History: Reports: Measles, MRSA - Past Surgical History Head Surgeries/Procedures: Reports: Craniotomy HEENT Surgical History: Reports: None Cardiovascular Surgical History: Reports: None Respiratory Surgical History: Reports: None GI Surgical History: Reports: None Male Surgical History: Reports: None Musculoskeletal Surgical History: Reports: None Oncologic Surgical History: Reports: None Dermatological Surgical History: Reports: Plastic Surgical Reconstruction/Repair Social & Family History - Family History Family Medical History: Noncontributory Cardiac: Reports: Prior Cardiac Arrest, Stent Endocrine/Metabolic: Reports: Diabetes, type II Oncologic: Reports: Bone - Caffeine Use Caffeine Use: Reports: Soda Other Caffeine Use: mt dew 1-2 bottles a day - Living Situation & Occupation Living situation: Reports: Single, with Significant Other Occupation: Disabled ED ROS GENERAL - Review of Systems Review Of Systems: See Below Constitutional: Reports: No Symptoms HEENT: Reports: No Symptoms Respiratory: Reports: No Symptoms Cardiovascular: Reports: Chest Pain Endocrine: Reports: No Symptoms GI/Abdominal: Reports: No Symptoms : Reports: No Symptoms Musculoskeletal: Reports: No Symptoms Skin: Reports: No Symptoms Neurological: Reports: No Symptoms Psychiatric: Reports: No Symptoms Hematologic/Lymphatic: Reports: No Symptoms Immunologic: Reports: No Symptoms ED EXAM, GENERAL - Physical Exam Exam: See Below Exam Limited By: No Limitations General Appearance: Alert, WD/WN, No Apparent Distress Neck: Normal Inspection, Supple, Non-Tender, Full Range of Motion Respiratory/Chest: No Respiratory Distress, Lungs Clear, Normal Breath Sounds, No Accessory Muscle Use, Chest Non-Tender Cardiovascular: Normal Peripheral Pulses, Regular Rate, Rhythm, No Edema, No Gallop, No JVD, No Murmur, No Rub GI/Abdominal: Normal Bowel Sounds, Soft, Non-Tender, No Organomegaly, No Distention, No Abnormal Bruit, No Mass Back Exam: Normal Inspection, Full Range of Motion, NT Extremities: Normal Inspection, Normal Range of Motion, Non-Tender, Normal Capillary Refill, No Pedal Edema Neurological: Alert, Oriented, CN II-XII Intact, Normal Cognition, Normal Gait, Normal Reflexes, No Motor/Sensory Deficits Psychiatric: Normal Affect, Normal Mood Skin Exam: Warm, Dry, Intact, Normal Color, No Rash Lymphatic: No Adenopathy EKG INTERPRETATION EKG Date: 10/24/19 Time: 11:56 Rhythm: NSR Rate (Beats/Min): 64 [place]: Normal P-Wave: Present QRS: Normal ST-T: Normal QT: Normal EKG Interpretation Comments: 100% paced Course - Vital Signs Last Recorded V/S: Last Vital Signs Temp 36.4 C 10/24/19 12:05 Pulse 67 10/24/19 12:05 Resp 14 10/24/19 12:05 BP 130/74 10/24/19 12:05 Pulse Ox 95 10/24/19 12:05 - Orders/Labs/Meds Orders: Active Orders 24 hr Category Date Time Status EKG Documentation Completion [RC] ASDIRECTED Care 10/24/19 12:00 Active UA W/MICROSCOPIC [URIN] Stat Lab 10/24/19 11:57 Ordered EKG 12 Lead [EK] Routine Ther 10/24/19 11:59 Ordered Labs: Laboratory Tests 10/24/19 10/24/19 10/24/19 Range/Units 11:55 11:55 11:55 WBC 4.34 L (5.00-10.00) 10^3/uL RBC 4.10 L (4.50-6.00) 10^6/uL Hgb 12.9 L (13.0-17.0) g/dL Hct 39.1 L (40.0-52.0) % MCV 95.4 H (82.0-92.0) fL MCH 31.5 H (27.0-31.0) pg MCHC 33.0 (32.0-36.0) g/dL RDW 15.1 H (11.5-14.5) % Plt Count 219 (150-400) 10^3/uL MPV 9.9 (7.4-10.4) fL Immature Gran % (Auto) 0.2 (0.0-5.0) % Neut % (Auto) 48.2 L (50.0-70.0) % Lymph % (Auto) 40.3 H (20.0-40.0) % [place] % (Auto) 6.2 (2.0-8.0) % Eos % (Auto) 3.7 H (1.0-3.0) % Baso % (Auto) 1.4 H (0.0-1.0) % Immature Gran # (Auto) 0.01 (0.00-0.50) 10^3/uL Neut # (Auto) 2.09 L (2.50-7.00) 10^3/uL Lymph # (Auto) 1.75 (1.00-4.00) 10^3/uL [place] # (Auto) 0.27 (0.10-0.80) 10^3/uL Eos # (Auto) 0.16 (0.10-0.30) 10^3/uL Baso # (Auto) 0.06 (0.00-0.10) 10^3/uL Sodium 140 (136-145) mmol/L Potassium 3.7 (3.3-5.3) mmol/L Chloride 101 (98-115) mmol/L Carbon Dioxide 27.3 (21.0-32.0) mmol/L Anion Gap 15.4 H (5-15) mmol/L BUN 22 (6-25) mg/dL Creatinine 1.11 (0.51-1.17) mg/dL Est Cr Clr Drug Dosing 71.25 mL/min Estimated GFR (MDRD) > 60 mL/min Glucose 100 H (75 - 99) mg/dL POC Glucose (74-106) mg/dl Lactic Acid 1.1 (0.4-2.0) mmol/L Calcium 8.7 (8.7-10.3) mg/dL Total Bilirubin 0.3 (0.2-1.0) mg/dL AST 22 (15-37) U/L ALT 12 (12-78) U/L Alkaline Phosphatase 67 (46-116) IU/L Creatine Kinase (26-276) U/L CK-MB (CK-2) (0.00-4.30) ng/mL Troponin I (0.00-0.070) ng/mL Total Protein 6.8 (6.4-8.2) g/dL Albumin 3.54 (3.00-4.80) g/dL Urine Color (YELLOW) Urine Appearance (CLEAR) Urine pH (5.0-9.0) Ur Specific [place] (1.005-1.030) Urine Protein (NEGATIVE) mg/dL Urine Glucose (UA) (NEGATIVE) mg/dL Urine Ketones (NEGATIVE) mg/dL Urine Occult Blood (NEGATIVE) Urine Nitrite (NEGATIVE) Urine Bilirubin (NEGATIVE) Urine Urobilinogen (0.2-1.0) E.U./dL Ur Leukocyte Esterase (NEGATIVE) 10/24/19 10/24/19 10/24/19 Range/Units 11:55 11:59 13:00 WBC (5.00-10.00) 10^3/uL RBC (4.50-6.00) 10^6/uL Hgb (13.0-17.0) g/dL Hct (40.0-52.0) % MCV (82.0-92.0) fL MCH (27.0-31.0) pg MCHC (32.0-36.0) g/dL RDW (11.5-14.5) % Plt Count (150-400) 10^3/uL MPV (7.4-10.4) fL Immature Gran % (Auto) (0.0-5.0) % Neut % (Auto) (50.0-70.0) % Lymph % (Auto) (20.0-40.0) % [place] % (Auto) (2.0-8.0) % Eos % (Auto) (1.0-3.0) % Baso % (Auto) (0.0-1.0) % Immature Gran # (Auto) (0.00-0.50) 10^3/uL Neut # (Auto) (2.50-7.00) 10^3/uL Lymph # (Auto) (1.00-4.00) 10^3/uL [place] # (Auto) (0.10-0.80) 10^3/uL Eos # (Auto) (0.10-0.30) 10^3/uL Baso # (Auto) (0.00-0.10) 10^3/uL Sodium (136-145) mmol/L Potassium (3.3-5.3) mmol/L Chloride (98-115) mmol/L Carbon Dioxide (21.0-32.0) mmol/L Anion Gap (5-15) mmol/L BUN (6-25) mg/dL Creatinine (0.51-1.17) mg/dL Est Cr Clr Drug Dosing mL/min Estimated GFR (MDRD) mL/min Glucose (75 - 99) mg/dL POC Glucose 86 (74-106) mg/dl Lactic Acid (0.4-2.0) mmol/L Calcium (8.7-10.3) mg/dL Total Bilirubin (0.2-1.0) mg/dL AST (15-37) U/L ALT (12-78) U/L Alkaline Phosphatase (46-116) IU/L Creatine Kinase 71 (26-276) U/L CK-MB (CK-2) 0.70 (0.00-4.30) ng/mL Troponin I 0.06 (0.00-0.070) ng/mL Total Protein (6.4-8.2) g/dL Albumin (3.00-4.80) g/dL Urine Color Yellow (YELLOW) Urine Appearance Clear (CLEAR) Urine pH 6.0 (5.0-9.0) Ur Specific [place] 1.025 (1.005-1.030) Urine Protein Negative (NEGATIVE) mg/dL Urine Glucose (UA) Negative (NEGATIVE) mg/dL Urine Ketones Negative (NEGATIVE) mg/dL Urine Occult Blood Small H (NEGATIVE) Urine Nitrite Negative (NEGATIVE) Urine Bilirubin Negative (NEGATIVE) Urine Urobilinogen 0.2 (0.2-1.0) E.U./dL Ur Leukocyte Esterase Negative (NEGATIVE) - Radiology Interpretation Free Text/Narrative:: CXR- NAD Departure - Departure Time of Disposition: 13:15 Disposition: Home, Self-Care 01 Condition: Good Clinical Impression: Atypical chest pain, Weakness - Discharge Information Instructions: Weakness, [id number], Nonspecific Chest Pain, [id number] Referrals: Mal Gonsalez [employer] [Primary Care Provider] - Forms: ED Department Discharge Additional Instructions: 1. discharge home 2. return to ER for worsening symptoms or chest pain or shortness of breath 3. follow up in clinic for further evaluation and treatment 4. continue home medications Sepsis Event Note - Focused Exam Vital Signs: Vital Signs Temp Pulse Resp BP Pulse Ox 10/24/19 12:05 36.4 C 67 14 130/74 95 Date Exam was Performed: 10/24/19 Time Exam was Performed: 13:13 - My Orders Last 24 Hours: My Active Orders 10/24/19 11:57 UA W/MICROSCOPIC [URIN] Stat 10/24/19 11:59 EKG 12 Lead [EK] Routine 10/24/19 12:00 EKG Documentation Completion [RC] ASDIRECTED - Assessment/Plan Last 24 Hours: My Active Orders 10/24/19 11:57 UA W/MICROSCOPIC [URIN] Stat 10/24/19 11:59 EKG 12 Lead [EK] Routine 10/24/19 12:00 EKG Documentation Completion [RC] ASDIRECTED Assessment:: 1. weakness 2. episode of atypical chest pain Plan: 1. discharge home 2. return to ER for worsening symptoms or chest pain or shortness of breath 3. follow up in clinic for further evaluation and treatment 4. continue home medications
[2019-10-24 12:23] LABS: ANION GAP 15.4 mmol/L (5-15); CHLORIDE,CL 101 mmol/L (98-115); SODIUM,NA 140 mmol/L (136-145)
--- NOTE | 2019-10-24 12:30 | CR ---
[id number] RAD/RAD Chest PA And Lateral EXAM: FRONTAL AND LATERAL CHEST INDICATION: WEAKNESS, RECENT PACEMAKER PLACEMENT. COMPARISON: October 16, 2019. DISCUSSION: Hyperinflation compatible with chronic obstructive pulmonary disease. Trace bilateral pleural effusions. Mild basilar scarring with no acute infiltrates identified. Interval placement of a left subclavian approach pacemaker leads with the tips overlying the RA and RV. IMPRESSION: 1. Trace bilateral pleural effusions. Stef Ricardo MD 10/24/19 [id number] Thank you for allowing us to participate in the care of your patient.
[2019-10-24 15:01] VITALS: BP 134/82; PULSE 66
== END 2019-10-24 13:30 | disposition home or self-care (01) ==
LOC: KA.ED 11:54
DX: R07.89 Other chest pain (principal); R53.1 Weakness; I25.2 Old myocardial infarction; E78.00 Pure hypercholesterolemia, unspecified; E66.9 Obesity, unspecified; Z68.23 Body mass index [BMI] 23.0-23.9, adult; I10 Essential (primary) hypertension; J44.9 Chronic obstructive pulmonary disease, unspecified; Z86.711 Personal history of pulmonary embolism; Z79.01 Long term (current) use of anticoagulants; Z86.718 Personal history of other venous thrombosis and embolism; Z88.5 Allergy status to narcotic agent
CPT/HCPCS: 71046; 80053; 81001; 82550; 82553; 82962; 83605; 84484; 85025; 93005; 99284; 99285-25

== ENCOUNTER 2020-01-15 10:30 | Inpatient (IN) | payer MEDICARE, MEDICAID ==
[2020-01-15] MEDS ORDERED: Sodium Chloride 0.9% 1,000 ML IV ONE (11:36)
--- NOTE | 2020-01-15 11:47 | CT ---
[id number] CT/CT Head WO IV EXAM: CT Head WO IV CLINICAL DATA: SYNCOPE. COMPARISON STUDY: October 16, 2019. FINDINGS: No intracranial hemorrhage, extra-axial fluid collection, mass, or acute ischemia. Postsurgical change from left posterior skull base craniectomy and hardware placement with underlying encephalomalacia of the left cerebral hemisphere, similar to the prior examination. [id number] chronic small vessel disease in the brain, including white matter changes and atrophy. No change from the prior examination. Paranasal sinuses and mastoid air cells are clear. IMPRESSION: No acute findings or significant change from the prior examination. Mark Roberts MD 01/15/20 1146 Thank you for allowing us to participate in the care of your patient.
[2020-01-15] MEDS ORDERED: Aspirin 81 MG Tab.Chew PO ONE (12:25)
[2020-01-15] MEDS ORDERED: Aspirin 81 MG Tab.Chew ONE (12:29)
--- NOTE | 2020-01-15 13:41 | EDM.PDOC ---
ED HPI GENERAL MEDICAL PROBLEM - General Chief Complaint: General Stated Complaint: FALL Time Seen by Provider: 01/15/20 10:35 Source of Information: Reports: Patient History Limitations: Reports: No Limitations - History of Present Illness INITIAL COMMENTS - FREE TEXT/NARRATIVE: 64-year-old male presents emergency room brought in by EMS with complaints of a syncopal episode. Patient states that he has had 2 syncopal episodes since his pacemaker placement in September. He was taken a shower this morning and felt lightheaded and passed out. He struck his head on the left side. He denied any significant chest pain at the time of arrival. He denied any diaphoretic symptoms. He denies any numbness or tingling complaints in his arms or lower extremities. He denies significant change in speech. He feels dizzy. He denies shortness of breath. He denies any abdominal or back pain. EKG shows an electrical atrial pacemaker without ST elevation. Onset: Today Onset Date: 01/15/20 Onset Time: 09:00 Duration: Minutes: Location: Reports: Head Quality: Reports: Ache Severity: Mild Improves with: Reports: Rest Worsens with: Reports: None Context: Reports: Other (fall in shower, syncopy) Associated Symptoms: Reports: Chest Pain. Denies: Diaphoresis, Fever/Chills, Headaches, Nausea/Vomiting, Seizure, Shortness of Breath - Related Data Allergies Allergy/AdvReac Type Severity Reaction Status Date / Time galantamine [Galantamine] Allergy Mild Itching Verified 01/15/20 12:53 bee venom protein (honey bee) Allergy Swelling Verified 01/15/20 12:53 hydrocodone Allergy Confusion Verified 01/15/20 12:53 Home Meds: Home Meds fluvoxaMINE Maleate [Fluvoxamine Maleate ER] 150 mg PO 0800 10/09/13 [History] OXcarbazepine [Trileptal] 450 mg PO BID 01/06/14 [History] ALPRAZolam [Alprazolam] 1 mg PO Q8H PRN 10/19/15 [History] fluvoxaMINE [Luvox] 200 mg PO BEDTIME 08/21/17 [History] Rivaroxaban [Xarelto] 20 mg PO DAILY@1800 12/25/18 [History] Erythromycin Base [Erythromycin] 1 applic EYELF QID 10/24/19 [History] Melatonin 3 mg PO BEDTIME 01/15/20 [History] risperiDONE 1 mg PO 0800 01/15/20 [History] risperiDONE 2 mg PO BEDTIME 01/15/20 [History] Past Medical History - Past Health History Medical/Surgical History: Denies Medical/Surgical History HEENT History: Reports: Impaired Vision, Other (See Below) Other HEENT History: wound to left side of the eye. left eye is covered by a telfa that is covering wound on face Cardiovascular History: Reports: Arrhythmia, Blood Clots/VTE/DVT, High Cholesterol, Hypertension, RI, Syncope Respiratory History: Reports: Bronchitis, Recurrent, PE Other Respiratory History: Pleurisy Gastrointestinal History: Reports: None, PUD Genitourinary History: Reports: None Musculoskeletal History: Reports: Fracture, Other (See Below) Other Musculoskeletal History: osteomyelitis, face Neurological History: Reports: Other (See Below) Other Neuro History: brain surgery to cover nerve endings x 2 last surgery 1999. trigeminal nueralgia Psychiatric History: Reports: Anxiety, Mood Swings Other Psychiatric History: none Endocrine/Metabolic History: Reports: Obesity/BMI 30+ Hematologic History: Reports: Anticoagulation Therapy Immunologic History: Reports: None Oncologic (Cancer) History: Reports: None Dermatologic History: Reports: Other (See Below) Other Dermatologic History: Open sores to face - Infectious Disease History Infectious Disease History: Reports: MRSA - Past Surgical History Head Surgeries/Procedures: Reports: Craniotomy HEENT Surgical History: Reports: None Cardiovascular Surgical History: Reports: None Respiratory Surgical History: Reports: None GI Surgical History: Reports: None Male Surgical History: Reports: None Musculoskeletal Surgical History: Reports: None Oncologic Surgical History: Reports: None Dermatological Surgical History: Reports: Plastic Surgical Reconstruction/Repair Social & Family History - Family History Family Medical History: Noncontributory Cardiac: Reports: Prior Cardiac Arrest, Stent Endocrine/Metabolic: Reports: Diabetes, type II Oncologic: Reports: Bone - Tobacco Use Smoking Status *Q: Current Every Day Smoker Years of Tobacco use: 50 Packs/Tins Daily: 1 - Caffeine Use Caffeine Use: Reports: None Other Caffeine Use: mt dew 1-2 bottles a day - Recreational Drug Use Recreational Drug Use: Yes Recreational Drug Type: Reports: Marijuana/Hashish Recreational Drug Use Frequency: Socially - Living Situation & Occupation Living situation: Reports: Single, with Significant Other Occupation: Disabled ED ROS GENERAL - Review of Systems Review Of Systems: See Below Constitutional: Denies: Fever, Chills, Diaphoresis HEENT: Reports: No Symptoms Respiratory: Denies: Shortness of Breath, Cough Cardiovascular: Reports: Chest Pain, Lightheadedness, Syncope, Other ( bradycardic). Denies: Dyspnea on Exertion, Orthopnea, Palpitations Endocrine: Reports: No Symptoms GI/Abdominal: Reports: No Symptoms : Reports: No Symptoms Musculoskeletal: Denies: Neck Pain, Joint Pain Skin: Reports: No Symptoms Neurological: Reports: Headache, Syncope, Trouble Speaking, Weakness. Denies: Numbness, Paresthesia, Change in Speech Psychiatric: Reports: Depression. 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 Patient has partial exposure of the left near. No active infection is appreciated with scarring tissue overlying left side of the face.) Throat/Mouth: Normal Voice, No Airway Compromise Head: Other (Left parietal hematoma. There is a healed scars overlying the left forehead.) Neck: Normal Inspection Respiratory/Chest: No Respiratory Distress, Lungs Clear, Normal Breath Sounds Cardiovascular: Normal Peripheral Pulses, Regular Rate, Rhythm Peripheral Pulses: 2+: Carotid (L), Carotid (R) GI/Abdominal: Normal Bowel Sounds, Soft, Non-Tender Back Exam: Normal Inspection Extremities: Normal Inspection Neurological: Alert, Oriented, No Motor/Sensory Deficits Psychiatric: Flat Affect Skin Exam: Warm, Dry, Intact Lymphatic: No Adenopathy EKG INTERPRETATION EKG Date: 01/15/20 Time: 11:12 Rhythm: NSR Rate (Beats/Min): 64 [place]: Normal P-Wave: Present QRS: Normal ST-T: Normal QT: Normal Comparison: NA - No Prior EKG EKG Interpretation Comments: Electronic atrial pacemaker Course - Vital Signs Last Recorded V/S: Last Vital Signs Temp 96.5 F L 01/15/20 10:36 Pulse 66 01/15/20 10:36 Resp 23 H 01/15/20 10:36 BP 137/76 01/15/20 10:36 Pulse Ox 94 L 01/15/20 10:36 - Orders/Labs/Meds Orders: Active Orders 24 hr Category Date Time Status EKG Documentation Completion [RC] ASDIRECTED Care 01/15/20 11:04 Active EKG 12 Lead [EK] Stat Ther 01/15/20 11:04 Ordered Labs: Laboratory Tests 01/15/20 01/15/20 01/15/20 Range/Units 11:42 11:42 11:42 WBC 10.51 H (5.00-10.00) 10^3/uL RBC 3.94 L (4.50-6.00) 10^6/uL Hgb 12.7 L (13.0-17.0) g/dL Hct 38.0 L (40.0-52.0) % MCV 96.4 H (82.0-92.0) fL MCH 32.2 H (27.0-31.0) pg MCHC 33.4 (32.0-36.0) g/dL RDW 16.4 H (11.5-14.5) % Plt Count 252 (150-400) 10^3/uL MPV 9.2 (7.4-10.4) fL Immature Gran % (Auto) 0.2 (0.0-5.0) % Neut % (Auto) 77.6 H (50.0-70.0) % Lymph % (Auto) 12.9 L (20.0-40.0) % [place] % (Auto) 8.3 H (2.0-8.0) % Eos % (Auto) 0.6 L (1.0-3.0) % Baso % (Auto) 0.4 (0.0-1.0) % Neut # (Auto) 8.16 H (2.50-7.00) 10^3/uL Lymph # (Auto) 1.36 (1.00-4.00) 10^3/uL [place] # (Auto) 0.87 H (0.10-0.80) 10^3/uL Eos # (Auto) 0.06 L (0.10-0.30) 10^3/uL Baso # (Auto) 0.04 (0.00-0.10) 10^3/uL Immature Gran # (Auto) 0.02 (0.00-0.50) 10^3/uL APTT 28.8 (23.1-31.3) SEC Sodium 144 (136-145) mmol/L Potassium 3.8 (3.3-5.3) mmol/L Chloride 108 (98-115) mmol/L Carbon Dioxide 27.8 (21.0-32.0) mmol/L Anion Gap 12.0 (5-15) mmol/L BUN 18 (6-25) mg/dL Creatinine 1.53 H (0.51-1.17) mg/dL Est Cr Clr Drug Dosing 50.10 mL/min Estimated GFR (MDRD) 46 mL/min Glucose 117 H (75 - 99) mg/dL Calcium 8.7 (8.7-10.3) mg/dL Total Bilirubin 0.3 (0.2-1.0) mg/dL AST 20 (15-37) U/L ALT 21 (12-78) U/L Alkaline Phosphatase 77 (46-116) IU/L Troponin I 0.11 H* (0.00-0.070) ng/mL Total Protein 6.8 (6.4-8.2) g/dL Albumin 3.53 (3.00-4.80) g/dL Meds: Medications Discontinued Medications Generic Name Dose Route Start Last Admin Trade Name Freq PRN Reason Stop Dose Admin Aspirin Confirm 01/15/20 12:29 Aspirin Administered 01/15/20 12:30 Dose 324 mg .ROUTE .STK-MED ONE Aspirin 324 mg 01/15/20 12:25 01/15/20 12:30 Aspirin PO 01/15/20 12:26 324 mg ONETIME ONE Administration Sodium Chloride 1,000 mls @ 999 mls/hr 01/15/20 11:36 01/15/20 11:40 Normal Saline IV 01/15/20 12:36 999 mls/hr .BOLUS ONE Administration - Radiology Interpretation Free Text/Narrative:: CT the head without IV contrast Findings: No intracranial hemorrhage, extra-axial fluid collection, mass, or acute ischemia. Postsurgical change from the left posterior skull base craniotomy and hardware placement with underlying encephalomalacia of the left cerebral hemisphere, similar to prior examination. Mild to moderate chronic small vessel disease in the brain, including white matter changes and atrophy. No change from prior examination. Paranasal sinuses and mastoid air cells are clear. Impression: No acute findings or significant change from the prior examination. CT Results Date: 01/15/20 CT Results Time: 11:40 - Re-Assessments/Exams Free Text/Narrative Re-Assessment/Exam: 01/15/20 13:50 Patient was given 1 L normal saline. Patient reports no headache. Patient reports no chest pain. I discussed with the patient that his troponin is mildly elevated at 0.11. Recommend repeat troponin in [address] him in observation on telemetry. He'll be followed by Agustina Guerra [employer] INSPECTOR. Patient is an agreements. Departure - Departure Time of Disposition: 13:52 Disposition: Refer to Observation Condition: Good Clinical Impression: History of pacemaker, Open wound of face, Obsessive-compulsive disorder Episode of syncope Qualifiers: Syncope type: unspecified Qualified Code(s): R55 - Syncope and collapse - Discharge Information Sepsis Event Note - Evaluation Sepsis Screening Result: No Definite Risk - Focused Exam Vital Signs: Vital Signs Temp Pulse Resp BP Pulse Ox 01/15/20 10:36 96.5 F L 66 23 H 137/76 94 L Date Exam was Performed: 01/15/20 Time Exam was Performed: 13:35 - My Orders Last 24 Hours: My Active Orders 01/15/20 11:04 EKG Documentation Completion [RC] ASDIRECTED EKG 12 Lead [EK] Stat - Assessment/Plan Last 24 Hours: My Active Orders 01/15/20 11:04 EKG Documentation Completion [RC] ASDIRECTED EKG 12 Lead [EK] Stat Assessment:: Syncopal episode Left scalp hematoma Mildly elevated troponin History of recent pacemaker placement History of sick sinus syndrome Obsessive-compulsive disorder Plan: We will place [facility] in observational status with telemetry. Recommend repeat troponin in 4 hours. Agustina Guerra will accept patients observational care at this time.
[2020-01-15] MEDS ORDERED: Lidocaine 2% 100 MG/5 ML Syringe IVPUSH PRN (14:43)
[2020-01-15] MEDS ORDERED: Atropine 0.1 MG/ML 10 ML Syringe IVPUSH PRN (14:43)
[2020-01-15] MEDS ORDERED: EPINEPHrine 1:10,000 1 MG/10 ML Syringe IVPUSH PRN (14:43)
[2020-01-15] MEDS ORDERED: ALPRAZOLAM 1 MG PO PRN (14:46)
[2020-01-15] MEDS: Sodium Chloride 0.9% 1,000 ML IV SCH (16:28)
[2020-01-15] MEDS: Nitroglycerin 0.4 MG Tab.SL SL PRN ×2 (16:30→21:08)
--- NOTE | 2020-01-15 17:48 | CR ---
[id number] RAD/RAD Chest PA And Lateral EXAM: RAD Chest PA And Lateral INDICATION: CHEST PAIN. COMPARISON: October 24, 2019. DISCUSSION: Right chest wall cardiac conduction device. Cardiomediastinal silhouette is normal in size and contour. No infiltrate, effusion, pneumothorax, or edema. Pulmonary hyperinflation. IMPRESSION: No acute cardiopulmonary abnormality. Gt Jarvis DO 01/15/20 1747 Thank you for allowing us to participate in the care of your patient.
[2020-01-15] MEDS ORDERED: RIVAROXABAN 20 MG PO SCH (18:00)
[2020-01-15] MEDS ORDERED: MELATONIN 3 MG PO SCH (21:00)
[2020-01-15] MEDS ORDERED: FLUVOXAMINE 100 MG PO SCH (21:00)
[2020-01-15] MEDS ORDERED: RISPERIDONE 2 MG PO SCH (21:00)
[2020-01-15] MEDS: Acetaminophen 325 MG Tab PO PRN (21:02)
[2020-01-15] MEDS: OXCARBAZEPINE 300 MG PO SCH (22:27)
[2020-01-16] MEDS: Sodium Chloride 0.9% 1,000 ML IV SCH ×2 (05:43→19:01)
[2020-01-16 07:46] LABS: ANION GAP 14.3 mmol/L (5-15)
[2020-01-16] MEDS ORDERED: RISPERIDONE 2 MG PO SCH (08:00)
[2020-01-16] MEDS ORDERED: FLUVOXAMINE 100 MG PO SCH (08:00)
[2020-01-16] MEDS ORDERED: OXCARBAZEPINE 300 MG PO SCH ×2 (09:05→11:28)
[2020-01-16] MEDS: OXCARBAZEPINE 300 MG PO SCH (09:34)
--- NOTE | 2020-01-16 10:23 | PCM.HP.2 ---
H&P History of Present Illness - General Date of Service: 01/16/20 Admit Problem/Dx: Admission Diagnosis/Problem Admission Diagnosis/Problem Chest pain Source of Information: Patient, Old Records, Provider, RN History Limitations: Reports: No Limitations Left Chest Pain Score (Numeric/FACES): 4 - Related Data Allergies/Adverse Reactions: Allergies Allergy/AdvReac Type Severity Reaction Status Date / Time galantamine [Galantamine] Allergy Mild Itching Verified 01/15/20 12:53 bee venom protein (honey bee) Allergy Swelling Verified 01/15/20 12:53 hydrocodone Allergy Confusion Verified 01/15/20 12:53 Home Medications: Home Meds fluvoxaMINE Maleate [Fluvoxamine Maleate ER] 150 mg PO 0800 10/09/13 [History] OXcarbazepine [Trileptal] 450 mg PO BID 01/06/14 [History] ALPRAZolam [Alprazolam] 1 mg PO Q8H PRN 10/19/15 [History] fluvoxaMINE [Luvox] 200 mg PO BEDTIME 08/21/17 [History] Rivaroxaban [Xarelto] 20 mg PO DAILY@1800 12/25/18 [History] Erythromycin Base [Erythromycin] 1 applic EYELF QID 10/24/19 [History] Melatonin 3 mg PO BEDTIME 01/15/20 [History] risperiDONE 1 mg PO 0800 01/15/20 [History] risperiDONE 2 mg PO BEDTIME 01/15/20 [History] Past Medical History - Past Health History Medical/Surgical History: Denies Medical/Surgical History HEENT History: Reports: Impaired Vision, Other (See Below) Other HEENT History: wound to left side of the eye. left eye is covered by a telfa that is covering wound on face Cardiovascular History: Reports: Arrhythmia, Blood Clots/VTE/DVT, High Cholesterol, Hypertension, VT, Syncope Other Cardiovascular History: prior cardiac arrest Respiratory History: Reports: Bronchitis, Recurrent, PE Other Respiratory History: Pleurisy Gastrointestinal History: Reports: None, PUD Genitourinary History: Reports: None Musculoskeletal History: Reports: Fracture, Other (See Below) Other Musculoskeletal History: osteomyelitis, face Neurological History: Reports: Other (See Below) Other Neuro History: brain surgery to cover nerve endings x 2 last surgery 1999. trigeminal nueralgia Psychiatric History: Reports: Anxiety, Mood Swings Other Psychiatric History: none Endocrine/Metabolic History: Reports: Obesity/BMI 30+ Hematologic History: Reports: Anticoagulation Therapy Immunologic History: Reports: None Oncologic (Cancer) History: Reports: None Dermatologic History: Reports: Other (See Below) Other Dermatologic History: Open sores to face - Infectious Disease History Infectious Disease History: Reports: MRSA - Past Surgical History Head Surgeries/Procedures: Reports: Craniotomy HEENT Surgical History: Reports: None Cardiovascular Surgical History: Reports: None Respiratory Surgical History: Reports: None GI Surgical History: Reports: None Male Surgical History: Reports: None Musculoskeletal Surgical History: Reports: None Oncologic Surgical History: Reports: None Dermatological Surgical History: Reports: Plastic Surgical Reconstruction/Repair Social & Family History - Family History Family Medical History: Noncontributory Cardiac: Reports: Prior Cardiac Arrest, Stent Endocrine/Metabolic: Reports: Diabetes, type II Oncologic: Reports: Bone - Tobacco Use Smoking Status *Q: Current Every Day Smoker Years of Tobacco use: 50 Packs/Tins Daily: 1 - Caffeine Use Caffeine Use: Reports: None Other Caffeine Use: mt dew 1-2 bottles a day - Recreational Drug Use Recreational Drug Use: Yes Recreational Drug Type: Reports: Marijuana/Hashish Recreational Drug Use Frequency: Socially - Living Situation & Occupation Living situation: Reports: Single, with Significant Other Occupation: Disabled H&P Review of Systems - Review of Systems: Review Of Systems: See Below General: Reports: No Symptoms HEENT: Reports: No Symptoms Pulmonary: Reports: Cough Cardiovascular: Reports: Chest Pain (Thoracic wall pain), Syncope, Blood Pressure Problem. Denies: Lightheadedness Gastrointestinal: Reports: No Symptoms Genitourinary: Reports: No Symptoms Musculoskeletal: Reports: No Symptoms Skin: Reports: Wound Psychiatric: Denies: Confusion, Depression, Anxiety, Agitation, Cravings, Hallucinations Neurological: Reports: Dizziness (Mild dizziness upon bending), Syncope. Denies : Confusion, Headache, Numbness, Seizure, Tremors, Difficulty Walking, Weakness Hematologic/Lymphatic: Reports: No Symptoms Immunologic: Reports: No Symptoms Exam - Exam Exam: See Below - Vital Signs Vital Signs: Last Vital Signs Temp 98.2 F 01/16/20 07:00 Pulse 66 01/16/20 07:00 Resp 16 01/16/20 07:00 BP 140/83 01/16/20 07:00 Pulse Ox 95 01/16/20 07:00 Orthostatic Blood Pressure [ 116/80 Standing] Orthostatic Blood Pressure [ 121/82 Sitting] Orthostatic Blood Pressure [ 140/83 Supine] Weight: 167 lb - Exam Quality Assessment: DVT Prophylaxis. No: Supplemental Oxygen General: Alert, Oriented, Cooperative. No: Mild Distress HEENT: EACs Clear. No: Mucosa Moist & [place], Rhinitis Neck: Supple. No: Carotid Bruit Lungs: Clear to Auscultation, Normal Respiratory Effort, Rub Cardiovascular: Regular Rate, Regular Rhythm, Normal S1, Normal S2. No: Tachycardia GI/Abdominal Exam: Normal Bowel Sounds, Soft, No Distention (Male) Exam: Deferred Rectal (Males) Exam: Deferred Back Exam: No: CVA Tenderness (L), CVA Tenderness (R) Extremities: No Pedal Edema Skin: Other (Bruise with abrasion left side of forehead, chronic left facial wound) Neurological: Cranial Nerves Intact, Normal Speech, Normal Tone Neuro Extensive - Mental Status: Alert, Oriented x3, Normal Mood/Affect, Normal Cognition Neuro Extensive - Motor, Sensory, Reflexes: CN II-XII Intact. No: Expressive Aphasia, Total Aphasia Psychiatric: Alert, Normal Affect, Labile Mood. No: Depressed - Patient Data Lab Results Last 24 hrs: Laboratory Results - last 24 hr 01/15/20 01/15/20 01/15/20 Range/Units 11:42 11:42 11:42 WBC 10.51 H (5.00-10.00) 10^3/uL RBC 3.94 L (4.50-6.00) 10^6/uL Hgb 12.7 L (13.0-17.0) g/dL Hct 38.0 L (40.0-52.0) % MCV 96.4 H (82.0-92.0) fL MCH 32.2 H (27.0-31.0) pg MCHC 33.4 (32.0-36.0) g/dL RDW 16.4 H (11.5-14.5) % Plt Count 252 (150-400) 10^3/uL MPV 9.2 (7.4-10.4) fL Immature Gran % (Auto) 0.2 (0.0-5.0) % Neut % (Auto) 77.6 H (50.0-70.0) % Lymph % (Auto) 12.9 L (20.0-40.0) % [place] % (Auto) 8.3 H (2.0-8.0) % Eos % (Auto) 0.6 L (1.0-3.0) % Baso % (Auto) 0.4 (0.0-1.0) % Neut # (Auto) 8.16 H (2.50-7.00) 10^3/uL Lymph # (Auto) 1.36 (1.00-4.00) 10^3/uL [place] # (Auto) 0.87 H (0.10-0.80) 10^3/uL Eos # (Auto) 0.06 L (0.10-0.30) 10^3/uL Baso # (Auto) 0.04 (0.00-0.10) 10^3/uL Immature Gran # (Auto) 0.02 (0.00-0.50) 10^3/uL APTT 28.8 (23.1-31.3) SEC Sodium 144 (136-145) mmol/L Potassium 3.8 (3.3-5.3) mmol/L Chloride 108 (98-115) mmol/L Carbon Dioxide 27.8 (21.0-32.0) mmol/L Anion Gap 12.0 (5-15) mmol/L BUN 18 (6-25) mg/dL Creatinine 1.53 H (0.51-1.17) mg/dL Est Cr Clr Drug Dosing 50.10 mL/min Estimated GFR (MDRD) 46 mL/min Glucose 117 H (75 - 99) mg/dL Calcium 8.7 (8.7-10.3) mg/dL Total Bilirubin 0.3 (0.2-1.0) mg/dL AST 20 (15-37) U/L ALT 21 (12-78) U/L Alkaline Phosphatase 77 (46-116) IU/L Troponin I 0.11 H* (0.00-0.070) ng/mL Total Protein 6.8 (6.4-8.2) g/dL Albumin 3.53 (3.00-4.80) g/dL 01/15/20 01/15/20 01/15/20 Range/Units 15:25 19:33 23:01 WBC (5.00-10.00) 10^3/uL RBC (4.50-6.00) 10^6/uL Hgb (13.0-17.0) g/dL Hct (40.0-52.0) % MCV (82.0-92.0) fL MCH (27.0-31.0) pg MCHC (32.0-36.0) g/dL RDW (11.5-14.5) % Plt Count (150-400) 10^3/uL MPV (7.4-10.4) fL Immature Gran % (Auto) (0.0-5.0) % Neut % (Auto) (50.0-70.0) % Lymph % (Auto) (20.0-40.0) % [place] % (Auto) (2.0-8.0) % Eos % (Auto) (1.0-3.0) % Baso % (Auto) (0.0-1.0) % Neut # (Auto) (2.50-7.00) 10^3/uL Lymph # (Auto) (1.00-4.00) 10^3/uL [place] # (Auto) (0.10-0.80) 10^3/uL Eos # (Auto) (0.10-0.30) 10^3/uL Baso # (Auto) (0.00-0.10) 10^3/uL Immature Gran # (Auto) (0.00-0.50) 10^3/uL APTT (23.1-31.3) SEC Sodium (136-145) mmol/L Potassium (3.3-5.3) mmol/L Chloride (98-115) mmol/L Carbon Dioxide (21.0-32.0) mmol/L Anion Gap (5-15) mmol/L BUN (6-25) mg/dL Creatinine (0.51-1.17) mg/dL Est Cr Clr Drug Dosing mL/min Estimated GFR (MDRD) mL/min Glucose (75 - 99) mg/dL Calcium (8.7-10.3) mg/dL Total Bilirubin (0.2-1.0) mg/dL AST (15-37) U/L ALT (12-78) U/L Alkaline Phosphatase (46-116) IU/L Troponin I 0.10 H* 0.08 H* 0.06 (0.00-0.070) ng/mL Total Protein (6.4-8.2) g/dL Albumin (3.00-4.80) g/dL 01/16/20 01/16/20 Range/Units 07:10 07:10 WBC 7.59 (5.00-10.00) 10^3/uL RBC 3.65 L (4.50-6.00) 10^6/uL Hgb 12.0 L (13.0-17.0) g/dL Hct 35.4 L (40.0-52.0) % MCV 97.0 H (82.0-92.0) fL MCH 32.9 H (27.0-31.0) pg MCHC 33.9 (32.0-36.0) g/dL RDW 16.7 H (11.5-14.5) % Plt Count 261 (150-400) 10^3/uL MPV 9.7 (7.4-10.4) fL Immature Gran % (Auto) 0.1 (0.0-5.0) % Neut % (Auto) 57.7 (50.0-70.0) % Lymph % (Auto) 32.4 (20.0-40.0) % [place] % (Auto) 7.2 (2.0-8.0) % Eos % (Auto) 2.1 (1.0-3.0) % Baso % (Auto) 0.5 (0.0-1.0) % Neut # (Auto) 4.37 (2.50-7.00) 10^3/uL Lymph # (Auto) 2.46 (1.00-4.00) 10^3/uL [place] # (Auto) 0.55 (0.10-0.80) 10^3/uL Eos # (Auto) 0.16 (0.10-0.30) 10^3/uL Baso # (Auto) 0.04 (0.00-0.10) 10^3/uL Immature Gran # (Auto) 0.01 (0.00-0.50) 10^3/uL APTT (23.1-31.3) SEC Sodium 146 H (136-145) mmol/L Potassium 3.6 (3.3-5.3) mmol/L Chloride 110 (98-115) mmol/L Carbon Dioxide 25.3 (21.0-32.0) mmol/L Anion Gap 14.3 (5-15) mmol/L BUN 16 (6-25) mg/dL Creatinine 1.24 H (0.51-1.17) mg/dL Est Cr Clr Drug Dosing 63.78 mL/min Estimated GFR (MDRD) 59 mL/min Glucose 92 (75 - 99) mg/dL Calcium 8.1 L (8.7-10.3) mg/dL Total Bilirubin (0.2-1.0) mg/dL AST (15-37) U/L ALT (12-78) U/L Alkaline Phosphatase (46-116) IU/L Troponin I 0.08 H* (0.00-0.070) ng/mL Total Protein (6.4-8.2) g/dL Albumin (3.00-4.80) g/dL Result Diagrams: 01/16/20 07:10 01/16/20 07:10 Sepsis Event Note - Evaluation Sepsis Screening Result: No Definite Risk - Focused Exam Vital Signs: Vital Signs Temp Pulse Resp BP BP Pulse Ox 01/16/20 07:00 98.2 F 66 16 140/83 95 01/16/20 02:52 98.5 F 88 20 131/86 96 01/15/20 23:00 98.7 F 75 20 131/79 96 Date Exam was Performed: 01/17/20 Time Exam was Performed: 09:46 Problem List Initiated/Reviewed/Updated: Yes Orders Last 24hrs: Active Orders 24 hr Category Date Time Status Patient Status [ADT] Routine ADT 01/15/20 12:57 Active Patient Status [ADT] Routine ADT 01/15/20 13:29 Active Bedrest Bathroom Privileges [RC] ASDIRECTED Care 01/15/20 13:33 Active Cardiac Monitoring [RC] 0300,0700,1100,1500,1900,2300 Care 01/15/20 13:32 Active Height and Weight [RC] .PRN Care 01/15/20 13:29 Active Intake and Output [RC] 1400,2200,0600 Care 01/15/20 13:32 Active Orthostatic Vital Signs [RC] ASDIRECTED Care 01/15/20 14:11 Active Orthostatic Vital Signs [RC] ASDIRECTED Care 01/16/20 06:00 Active Pulse Oximetry [RC] PRN Care 01/15/20 13:32 Active Up With Assistance [RC] ASDIRECTED Care 01/15/20 13:29 Inactive Vital Signs [RC] 0300,0700,1100,1500,1900,2300 Care 01/15/20 12:57 Active Vital Signs [RC] Q4H Care 01/15/20 13:29 Inactive Heart Healthy Diet [DIET] Diet 01/15/20 Dinner Active Acetaminophen [Tylenol] Med 01/15/20 20:44 Active 650 mg PO Q4H PRN Atropine [Atropine 0.1 MG/ML] Med 01/15/20 14:43 Active See Dose Instructions IVPUSH ASDIRECTED PRN EPINEPHrine [EPINEPHrine 1:10,000] Med 01/15/20 14:43 Active 1 mg IVPUSH ASDIRECTED PRN Lidocaine 2% [Xylocaine 2%] Med 01/15/20 14:43 Active See Dose Instructions IVPUSH ASDIRECTED PRN Nitroglycerin [Nitrostat] Med 01/15/20 14:43 Active 0.4 mg SL ASDIRECTED PRN Non-Formulary Medication [NF Drug] Med 01/16/20 08:00 Active 0.5 each PO 0800 Non-Formulary Medication [NF Drug] Med 01/15/20 21:00 Active 1 each PO BEDTIME Non-Formulary Medication [NF Drug] Med 01/15/20 21:00 Active 1 each PO BEDTIME Non-Formulary Medication [NF Drug] Med 01/15/20 18:00 Active 1 each PO DAILY@1800 Non-Formulary Medication [NF Drug] Med 01/15/20 14:46 Active 1 each PO Q8H PRN Non-Formulary Medication [NF Drug] Med 01/16/20 08:00 Active 1.5 each PO 0800 Non-Formulary Medication [NF Drug] Med 01/15/20 21:00 Active 2 each PO BEDTIME Oxcarbazepine [Trileptal] Med 01/16/20 09:05 Active 450 mg PO BID Sodium Chloride 0.9% [Normal Saline] 1,000 ml Med 01/15/20 16:15 Active IV ASDIRECTED Resuscitation Status Routine Resus Stat 01/15/20 14:40 Ordered Medication Orders Acetaminophen (Tylenol) 650 mg PO Q4H PRN PRN Reason: Pain Last Admin: 01/15/20 21:02 Dose: 650 mg Atropine Sulfate (Atropine 0.1 Mg/Ml) 0 mg IVPUSH ASDIRECTED PRN PRN Reason: Heart. Epinephrine HCl (Epinephrine 1:10,000) 1 mg IVPUSH ASDIRECTED PRN PRN Reason: Heart. Sodium Chloride (Normal Saline) 1,000 mls @ 75 mls/hr IV ASDIRECTED JONAS Last Admin: 01/16/20 05:43 Dose: 75 mls/hr Infusion: 01/16/20 05:43 Dose: 75 mls/hr Admin: 01/15/20 16:28 Dose: 75 mls/hr Lidocaine HCl (Xylocaine 2%) 0 mg IVPUSH ASDIRECTED PRN PRN Reason: Heart. Nitroglycerin (Nitrostat) 0.4 mg SL ASDIRECTED PRN PRN Reason: Heart. Last Admin: 01/15/20 21:08 Dose: 0.4 mg Admin: 01/15/20 16:30 Dose: 0.4 mg Alprazolam [ Alprazolam] 1 Mg * Ptom* 1 each PO Q8H PRN PRN Reason: Anxiety Last Admin: 01/15/20 22:24 Dose: 1 each Fluvoxamine 100 Mg (Tab Ptom) 2 each PO BEDTIME [facility] Last Admin: 01/15/20 22:41 Dose: 2 each Fluvoxamine 100 Mg (Tab Ptom) 1.5 each PO 0800 JONAS Melatonin 3 Mg Tab * (*Ptom) 1 each PO BEDTIME [facility] Last Admin: 01/15/20 22:41 Dose: 1 each Risperidone 2 Mg Tab (Ptom) 0.5 each PO 0800 JONAS Risperidone 2 Mg Tab (Ptom) 1 each PO BEDTIME [facility] Last Admin: 01/15/20 22:42 Dose: 1 each Rivaroxaban 20 Mg (Tab Ptom) 1 each PO DAILY@1800 [facility] Last Admin: 01/15/20 18:10 Dose: 1 each Own Med ( Oxcarbazepine [ Trileptal] 300 Mg) 450 mg PO BID JONAS Assessment/Plan Comment:: History of present illness Joby is a 64-year-old male who was admitted yesterday when he came to the ED with complaints of a syncopal episode. Patient states that he has had 2 syncopal episodes since his pacemaker placement in September. He was taken a shower this morning and felt lightheaded and passed out. He struck his head on the left side. He denied any significant chest pain at the time of arrival. He denied any diaphoretic symptoms. He denies any numbness or tingling complaints in his arms or lower extremities. He denies significant change in speech. He feels dizzy. He denies shortness of breath. He denies any abdominal or back pain. EKG shows an electrical atrial pacemaker without ST elevation. ED findings: --CT head: No intracranial hemorrhage, extra-axial fluid collection, mass, or acute ischemia. Postsurgical change from the left posterior skull base craniotomy and hardware placement with underlying encephalomalacia of the left cerebral hemisphere, similar to prior examination. Mild to moderate chronic small vessel disease in the brain, including white matter changes and atrophy. No change from prior examination. Paranasal sinuses and mastoid air cells are clear. --EKG; atrial pacemaker, no ST elevation. --Trop 0.11 --Electrolytes good --Creatinine 1.53 --Mildly anemia picture Hospital course to date Day 1: Patient had on and off chest wall pain throughout the day and evening, appears to have responded with nitroglycerin however delayed response. KG changes 1630hrs call provider notified that pt about complain of localize sharp chest pain, dizziness; score of 5/10. Vital signs taken 99.8F, 72bpm, 138/89mmhg, 98% , 18cpm, positive orthostatics. 2100 pt reports 4/10 chest pain to Lt chest; pt moaning and holding Lt chest; pt denies radiation however unable to elaborate on onset and quality of pain; pt also reports bilateral shoulder pain "from my fall at home"; Nitro per PRN order and give Tylenol per standing order, some relief 2204 PRN Xanax given; Acute hospital problems --Suspect pleuritis 2/2 thoracic chest wall pain, rub noted, vs costochondritis --Suspect Home medication mismanagement --Suspect vulnerable adult, will submit report through [facility] [place] to determine competency Plan today --change to inpatient --Assess Oxcarbazepine level --Psychiatric consultation with Dr. Lobato; inquiry regarding reducing Trileptal 2/2 dizziness, syncope, gait disturbance etc. --Orthostatics --Chest wall splinting, lidocaine patch --Social service/Pharmacy consultation, may need placement - Mortality Measure Prognosis:: Good
[2020-01-16] MEDS: Lidocaine 5% 700 MG Patch TOP SCH (11:54)
[2020-01-16] MEDS: Acetaminophen 325 MG Tab PO PRN ×2 (13:38→21:13)
[2020-01-16] MEDS ORDERED: ALPRAZolam 0.25 MG Tab PO PRN (17:07)
[2020-01-16] MEDS: Rivaroxaban 10 MG Tab PO SCH (18:00)
[2020-01-16] MEDS ORDERED: risperiDONE 1 MG Tab PO SCH (21:00)
[2020-01-16] MEDS ORDERED: risperiDONE 1 MG Tab PO ONE (21:00)
[2020-01-16] MEDS ORDERED: fluvoxaMINE 100 MG Tab PO SCH (21:00)
[2020-01-16] MEDS: Melatonin 3 MG Tab PO SCH (21:07)
[2020-01-16] MEDS: OXYCARBAZEPINE PO SCH (21:07)
[2020-01-16] MEDS: fluvoxaMINE 100 MG Tab PO SCH (21:08)
[2020-01-17] MEDS ORDERED: fluvoxaMINE 100 MG Tab PO SCH (08:00)
[2020-01-17] MEDS ORDERED: risperiDONE 1 MG Tab PO SCH ×2 (08:00→21:00)
[2020-01-17] MEDS: fluvoxaMINE 100 MG Tab PO SCH ×2 (08:25→23:16)
--- NOTE | 2020-01-17 09:46 | PCM.PN ---
- General Info Date of Service: 01/17/20 Functional Status: Reports: Tolerating Diet. Denies: Pain Controlled, Ambulating, New Symptoms, Incentive Spirometry - Review of Systems General: Reports: No Symptoms HEENT: Reports: No Symptoms Pulmonary: Reports: Pleuritic Chest Pain, Other. Denies: Sputum, Hemoptysis, Wheezing Cardiovascular: Denies: Chest Pain, Palpitations, Orthopnea, PND, Edema Gastrointestinal: Reports: No Symptoms Genitourinary: Reports: No Symptoms Musculoskeletal: Reports: Other (Left lower thoracic reproducible pain on coughing) Skin: Reports: Pallor, Dryness, Bruising Neurological: Denies: Confusion, Dizziness, Headache, Numbness, Tingling, Difficulty Walking Psychiatric: Denies: Confusion, Mood Lability, Agitation, Cravings - Patient Data Vitals - Most Recent: Last Vital Signs Temp 98.9 F 01/17/20 07:00 Pulse 76 01/17/20 07:00 Resp 16 01/17/20 07:00 BP 153/94 H 01/17/20 07:00 Pulse Ox 98 01/17/20 07:00 Orthostatic Blood Pressure [ 124/80 Standing] Orthostatic Blood Pressure [ 134/81 Sitting] Orthostatic Blood Pressure [ 153/94 Supine] Weight - Most Recent: 167 lb I&O - Last 24 Hours: Intake & Output 01/16/20 01/17/20 01/17/20 22:59 06:59 14:59 Intake Total 901 677 Output Total 600 Balance 301 677 Med Orders - Current: Current Medications Acetaminophen (Tylenol) 650 mg PO Q4H PRN PRN Reason: Pain Last Admin: 01/16/20 21:13 Dose: 650 mg Alprazolam (Xanax) 1 mg PO Q8H PRN PRN Reason: ANXIETY Last Admin: 01/16/20 21:16 Dose: 1 mg Atropine Sulfate (Atropine 0.1 Mg/Ml) 0 mg IVPUSH ASDIRECTED PRN PRN Reason: Heart. Epinephrine HCl (Epinephrine 1:10,000) 1 mg IVPUSH ASDIRECTED PRN PRN Reason: Heart. Fluvoxamine Maleate (Luvox) 100 mg PO DAILY [facility] Last Admin: 01/17/20 08:25 Dose: 100 mg Fluvoxamine Maleate (Luvox) 250 mg PO BEDTIME JONAS Last Admin: 01/16/20 21:08 Dose: 250 mg Sodium Chloride (Normal Saline) 1,000 mls @ 75 mls/hr IV ASDIRECTED JONAS Last Admin: 01/16/20 19:01 Dose: 75 mls/hr Lidocaine (Lidoderm 5%) 700 mg TOP Q24H JONAS Last Admin: 01/16/20 11:54 Dose: 700 mg Lidocaine HCl (Xylocaine 2%) 0 mg IVPUSH ASDIRECTED PRN PRN Reason: Heart. Melatonin (Melatonin) 3 mg PO BEDTIME [facility] Last Admin: 01/16/20 21:07 Dose: 3 mg Miscellaneous Information (Remove Patch) 1 ea TRDERM Q24H [facility] Last Admin: 01/16/20 23:55 Dose: 1 ea Nitroglycerin (Nitrostat) 0.4 mg SL ASDIRECTED PRN PRN Reason: Heart. Last Admin: 01/15/20 21:08 Dose: 0.4 mg Oxycarbazepine 300 (Mg Own Med) 0 each PO BEDTIME [facility] Last Admin: 01/16/20 21:07 Dose: 1 each Risperidone (Risperidal) 3 mg PO BEDTIME JONAS Rivaroxaban (Xarelto) 20 mg PO DAILY@1800 [facility] Last Admin: 01/16/20 18:00 Dose: 20 mg Discontinued Medications Aspirin (Aspirin) Confirm Administered Dose 324 mg .ROUTE .STK-MED ONE Stop: 01/15/20 12:30 Last Admin: 01/15/20 13:47 Dose: Not Given Aspirin (Aspirin) 324 mg PO ONETIME ONE Stop: 01/15/20 12:26 Last Admin: 01/15/20 12:30 Dose: 324 mg Fluvoxamine Maleate (Luvox) 200 mg PO BEDTIME [facility] Fluvoxamine Maleate (Luvox) 150 mg PO DAILY@0800 [facility] Sodium Chloride (Normal Saline) 1,000 mls @ 999 mls/hr IV .BOLUS ONE Stop: 01/15/20 12:36 Last Admin: 01/15/20 11:40 Dose: 999 mls/hr Alprazolam [ Alprazolam] 1 Mg * Ptom* 1 each PO Q8H PRN PRN Reason: Anxiety Last Admin: 01/15/20 22:24 Dose: 1 each Fluvoxamine 100 Mg (Tab Ptom) 2 each PO BEDTIME [facility] Last Admin: 01/15/20 22:41 Dose: 2 each Fluvoxamine 100 Mg (Tab Ptom) 1.5 each PO 0800 [facility] Last Admin: 01/16/20 11:49 Dose: 1.5 each Melatonin 3 Mg Tab * (*Ptom) 1 each PO BEDTIME [facility] Last Admin: 01/15/20 22:41 Dose: 1 each Own Med ( Oxcarbazepine [ Trileptal] 300 Mg) 0 mg PO BID [facility] Last Admin: 01/16/20 09:34 Dose: Not Given Risperidone 2 Mg Tab (Ptom) 0.5 each PO 0800 [facility] Last Admin: 01/16/20 11:48 Dose: 0.5 each Risperidone 2 Mg Tab (Ptom) 1 each PO BEDTIME [facility] Last Admin: 01/15/20 22:42 Dose: 1 each Rivaroxaban 20 Mg (Tab Ptom) 1 each PO DAILY@1800 [facility] Last Admin: 01/15/20 18:10 Dose: 1 each Own Med ( Oxcarbazepine [ Trileptal] 300 Mg) 450 mg PO BID [facility] Own Med ( Oxcarbazepine [ Trileptal] 300 Mg) 150 mg PO BID [facility] Last Admin: 01/16/20 11:49 Dose: 150 mg Risperidone (Risperidal) 1 mg PO DAILY@0800 [facility] Risperidone (Risperidal) 2 mg PO BEDTIME [facility] Risperidone (Risperidal) 2 mg PO ONETIME ONE Stop: 01/16/20 21:01 Last Admin: 01/16/20 21:06 Dose: 2 mg - Exam Quality Assessment: DVT Prophylaxis. No: Supplemental Oxygen General: Alert, Oriented, Cooperative, No Acute Distress Lungs: Clear to Auscultation, Normal Respiratory Effort, Other (rub noted left thoracic) Cardiovascular: Regular Rate, Regular Rhythm GI/Abdominal Exam: Soft, Non-Tender Back Exam: No: CVA Tenderness (L), CVA Tenderness (R) Extremities: No Pedal Edema Skin: Other (Bruise with abrasion left side of forehead, chronic left facial wound) Wound/Incisions: Other Neurological: Normal Speech Psy/Mental Status: Alert, Normal Affect, Labile Mood Sepsis Event Note - Evaluation Sepsis Screening Result: No Definite Risk - Focused Exam Vital Signs: Vital Signs Temp Pulse Resp BP Pulse Ox 01/17/20 07:00 98.9 F 76 16 153/94 H 98 01/17/20 02:58 98.3 F 67 16 143/85 H 95 01/16/20 22:58 98.7 F 64 16 139/83 95 Date Exam was Performed: 01/17/20 Time Exam was Performed: 09:50 - Problem List Review Problem List Initiated/Reviewed/Updated: Yes - My Orders Last 24 Hours: My Active Orders 01/16/20 11:00 Lidocaine 5% [Lidoderm 5%] 700 mg TOP Q24H 01/16/20 11:41 Communication Order [RC] ROUTINE 01/16/20 12:32 Patient Status [ADT] Routine 01/16/20 14:34 Consult to Case Management/Bulb Planter [CONS] Routine 01/16/20 19:25 DRUG SCREEN, URINE [URCHEM] Stat 01/16/20 21:00 Non-Formulary Medication [NF Drug] 0 each PO BEDTIME fluvoxaMINE [Luvox] 250 mg PO BEDTIME 01/16/20 23:00 Remove Patch 1 ea TRDERM Q24H 01/17/20 09:00 fluvoxaMINE [Luvox] 100 mg PO DAILY 01/17/20 21:00 risperiDONE [RisperiDAL] 3 mg PO BEDTIME - Plan Plan:: History of present illness Joby is a 64-year-old male who was admitted yesterday when he came to the ED with complaints of a syncopal episode. Patient states that he has had 2 syncopal episodes since his pacemaker placement in September. He was taken a shower this morning and felt lightheaded and passed out. He struck his head on the left side. He denied any significant chest pain at the time of arrival. He denied any diaphoretic symptoms. He denies any numbness or tingling complaints in his arms or lower extremities. He denies significant change in speech. He feels dizzy. He denies shortness of breath. He denies any abdominal or back pain. EKG shows an electrical atrial pacemaker without ST elevation. ED findings: --CT head: No intracranial hemorrhage, extra-axial fluid collection, mass, or acute ischemia. Postsurgical change from the left posterior skull base craniotomy and hardware placement with underlying encephalomalacia of the left cerebral hemisphere, similar to prior examination. Mild to moderate chronic small vessel disease in the brain, including white matter changes and atrophy. No change from prior examination. Paranasal sinuses and mastoid air cells are clear. --EKG; atrial pacemaker, no ST elevation. --Trop 0.11 --Electrolytes good --Creatinine 1.53 --Mildly anemia picture Hospital course to date Day 1: Patient had on and off chest wall pain throughout the day and evening, appears to have responded with nitroglycerin however delayed response. KG changes 1630 on-call provider notified that pt about complain of localize sharp chest pain, dizziness; score of 5/10. Vital signs taken 99.8F, 72bpm, 138/89mmhg , 98%, 8cpm, positive orthostatics. 2100 pt reports 4/10 chest pain to Lt chest; pt moaning and holding Lt chest ; pt denies radiation however unable to elaborate on onset and quality of pain; pt also reports bilateral shoulder pain "from my fall at home"; Nitro per PRN order and give Tylenol per standing order, some relief 2205 PRN Xanax given; Day 2: Patient does complain of left-sided thoracic producible chest wall pain that is exacerbated on coughing, Psychiatric consultation with Dr. Lobato; Trileptal, Luvox, and risperidone were adjusted (higher doses were shifted into the p.m.). His caregiver Maya initially notified [facility] services that she has no longer ability to care for him however this morning on rounds she called stating she would take him back upon discharge as she has notified the patient's 2 brothers and sisters and there will be a family care conference among themselves upon discharge at home. Acute hospital problems --NSTEMI vs Pleuritis vs costochondritis, constitutional symptoms highly suggest noncardiac etiology --Rule out rib fractures --Syncope, highly suspect medication induced, psychiatric medication adjusted Plan today --Continue with inpatient status --Oxcarbazepine level pending --Chest CT today --Ongoing monitoring orthostatics since recent psychiatric medication changes --Ambulatory in the rodrigues 4 times today --Add Imdur --Chest wall splinting, lidocaine patch --Limited hydrocodone for pain, may change to NSAIDs if certain noncardiac etiology Discharge planning Patient will be discharged within 1 to 2 days in the care of Maya Rowley/ caregiver.
[2020-01-17] MEDS ORDERED: Iopamidol 755 Mg/ML 100 ML Bottle IV ONE (10:19)
[2020-01-17] MEDS ORDERED: Sodium Chloride 0.9% 50 ML IV SCH (10:30)
[2020-01-17 10:41] LABS: BARBITURATE SCREEN,URINE NEGATIVE (NEGATIVE); BENZODIAZEPINES SCREEN,URINE POSITIVE (NEGATIVE); TCA SCREEN,URINE NEGATIVE (NEGATIVE); THC SCREEN,URINE 50 NG/ML POSITIVE (NEGATIVE)
[2020-01-17] MEDS: Lidocaine 5% 700 MG Patch TOP SCH (10:54)
[2020-01-17] MEDS: Acetaminophen/HYDROcodone 325-5 MG Tab PO PRN ×3 (10:54→23:17)
[2020-01-17] MEDS: Isosorbide Mononitrate 30 MG Tab.ER PO SCH (10:55)
--- NOTE | 2020-01-17 14:10 | CT ---
[id number] CT/CTA Chest EXAM: CT ANGIOGRAM CHEST INDICATION: CHEST PAIN. COMPARISON: CT chest with contrast 02/29/2016. DISCUSSION: There are a few apparent defect within multiple subsegmental branches bilaterally however these are suspected to be artifactual in nature. No large central, lobar or segmental pulmonary arterial filling defects to suggest acute pulmonary embolism. No secondary signs of acute pulmonary embolism. Left chest wall cardiac conduction device. Again identified are moderate changes of probably centrilobular emphysema. Dependent atelectasis at the lung bases bilaterally. Linear scarring at the right lung base. No suspicious pulmonary nodules or masses. No airspace consolidation. No pneumothorax or pleural effusion.No pleural or pericardial effusion. Normal heart size. No mediastinal, hilar or axillary lymphadenopathy. A few scattered atherosclerotic calcifications of the aorta and its branches. Again identified are a few hypodense lesions scattered throughout the liver. The remaining upper abdominal organs are grossly unremarkable. IMPRESSION: 1. No definite evidence of acute pulmonary embolism. Gt Jarvis DO 01/17/20 1404 Thank you for allowing us to participate in the care of your patient.
[2020-01-17] MEDS ORDERED: Nicotine 21 MG/24 Hr Patch TRDERM SCH (17:00)
[2020-01-17] MEDS: Rivaroxaban 10 MG Tab PO SCH (17:45)
[2020-01-17] MEDS: OXYCARBAZEPINE PO SCH (23:16)
[2020-01-17] MEDS: Melatonin 3 MG Tab PO SCH (23:17)
[2020-01-18 08:44] LABS: ANION GAP 13.9 mmol/L (5-15)
[2020-01-18] MEDS: fluvoxaMINE 100 MG Tab PO SCH (09:05)
[2020-01-18] MEDS: Isosorbide Mononitrate 30 MG Tab.ER PO SCH (09:05)
[2020-01-18] MEDS: Lidocaine 5% 700 MG Patch TOP SCH (10:58)
[2020-01-18 11:20] VITALS: BP 113/68; PULSE 86
[2020-01-18] MEDS: Acetaminophen 325 MG Tab PO PRN (13:00)
--- NOTE | 2020-01-18 14:15 | PCM.DCSUM1 ---
Discharge Summary - Hospital Course HPI Initial Comments: Date of admission: 01/16/20 Date of discharge: 01/18/20 Admission diagnoses: Syncope Discharge diagnoses: Syncope- l Chest wall pain- reproducible. unlikely of cardiac origin. Consultations: Dr. Lobato, psychiatry Hospital course: Mr. Elam is a 64 year old male who was admitted to the 01/16/20. patient presented to the ED following a syncopal event. Patient reported 2 syncopal episodes since his pacemaker placement in September for SSS. Prior to arrival patient felt lightheaded and passed out in the shower, striking the left side of his head. CT of the head done with no intracranial hemorrhage, extra-axial fluid collection, mass, or acute ischemia. post surgical change from the left posterior skull base craniotomy and hardware placement with underlying encephalomalacia of the left cerebelar hemisphere, similar to prior exam. mild to moderate chronic small vessel disease in the brain, including white matter changes and atrophy. No change from prior exam. EKG atrial pacemaker, no ST elevation. During hospital course patient had on and off chest wall pain. Mild troponin elevation on admission at 0.11 which downtrended to normal however with a second peak at 0.08 and then normalized. Patient was started on Imdur due to initial concern of cardiac etiology, though this is felt to be less likely due to significantly reproducible nature of pain. CT of the chest done with no evidence of PE. no acute changes noted on CT. psychiatric consultation with Dr. Lobato during hospitalization. Trileptal, luvox and risperiodne were adjusted (higher doses shifted into the p.m.). Syncopal episodes are felt to me more medication related. His caregiver Maya initially felt she was no longer able to care for patient however she then stated she felt comfortable taking patient back into her care with plan for additional support from patients siblings. Patient feels safe in caregivers care. Overall patient did well during hospital course. He had no further syncopal episodes. oral fluid intake somewhat poor and at discharge Creatinine mildly increased at 1.36. Sodium mildly increased at 146. Patient and caregiver agree to pushing oral fluids at home and outpatient follow-up for recheck labs. At time of discharge, patient had notable clinical improvement and was up ambulating without concerns of dizziness or lightheadedness. notes ongoing, reproducible chest wall pain. Discharge recommendations: - Increase water intake - splinting of ribs with cough - deep breathing/incentive spirometry at home. - Lidocaine patch as needed. - May take Tylenol as needed for rib pain. --- Avoid Ibuprofen, Motrin, Aleve, aspirin for pain due to xarelto use. Medication changes at discharge: - STOP IMDUR - Oxcarbazepine- take 300mg by mouth at BEDTIME - Risperidone- take 3 mg by mouth at BEDTIME - Fluvoxamine Maleate (Luvox)- Take 100mg by mouth in the AM and 250mg by mouth at BEDTIME Disposition: Discharge to home with caregiver support. Follow-up - Recommend close outpatient follow-up. Follow-up early this next week with Mal Gonsalez CNP, or provider of choice. - Recheck kidney and sodium at follow-up. Diagnosis: Stroke: No - Discharge Data Discharge Date: 01/18/20 Discharge Disposition: Home, Self-Care 01 Condition: Good - Referral to Home Health Primary Care Physician: Mal Gonsalez NP - Discharge Diagnosis/Problem(s) (1) Episode of syncope SNOMED Code(s): 132824735 ICD Code: R55 - SYNCOPE AND COLLAPSE Status: Acute Qualifiers: Syncope type: unspecified Qualified Code(s): R55 - Syncope and collapse (2) Chest wall pain SNOMED Code(s): 803579102 ICD Code: R07.89 - OTHER CHEST PAIN Status: Acute - Patient Summary/Data Consults: Consultations 01/16/20 14:34 Consult to Case Management/Ingredient Specialist [CONS] Routine Labs Pending at D/C: Oxycarbazepine level pending. Recommended Follow-up Testing/Procedures: Follow-up lab: BMP - Patient Instructions Diet: Regular Diet as Tolerated Driving: Do Not Drive Showering/Bathing: May Shower Notify Provider of: Fever, Increased Pain Other/Special Instructions: follow-up for any worsening or return of symptoms including ROBIN, dizziness, syncope, chest pain, or shortness of breath. - Discharge Plan Home Medications: Home Meds ALPRAZolam [Alprazolam] 1 mg PO Q8H PRN 10/19/15 [History] Rivaroxaban [Xarelto] 20 mg PO DAILY@1800 12/25/18 [History] Erythromycin Base [Erythromycin] 1 applic EYELF QID 10/24/19 [History] Melatonin 3 mg PO BEDTIME 01/15/20 [History] Acetaminophen [Tylenol] 650 mg PO Q4H PRN tablet 01/18/20 [Rx] OXcarbazepine [Trileptal] 300 mg PO BEDTIME 01/18/20 [History] fluvoxaMINE [Luvox] 100 mg PO DAILY tablet 01/18/20 [Rx] fluvoxaMINE [Luvox] 250 mg PO BEDTIME tablet 01/18/20 [Rx] risperiDONE 3 mg PO BEDTIME #0 01/18/20 [Rx] Forms: ED Department Discharge Referrals: Mal Gonsalez, CONTINUOUS DRIER OPERATOR [Primary Care Provider] - - Discharge Summary/Plan Comment DC Time >30 min.: No - General Info Date of Service: 01/18/20 Admission Dx/Problem (Free Text: Syncope, chest wall pain Functional Status: Reports: Ambulating. Denies: New Symptoms - Review of Systems General: Denies: Weakness, Fatigue, Chills, Night Sweats HEENT: Denies: Headaches, Visual Changes Pulmonary: Reports: Pleuritic Chest Pain, Other (chest wall pain). Denies: Shortness of Breath, Cough, Sputum, Hemoptysis Cardiovascular: Denies: Chest Pain, Palpitations, Dyspnea on Exertion, Orthopnea , PND, Edema Gastrointestinal: Reports: No Symptoms Genitourinary: Reports: No Symptoms Musculoskeletal: Reports: Other (chest wall pain reproducible with palpation and coughing) Skin: Reports: Pallor, Dryness, Bruising Neurological: Denies: Confusion, Dizziness, Headache, Numbness, Paresthesia, Syncope, Difficulty Walking, Weakness, Change in Speech, Gait Disturbance Psychiatric: Denies: Confusion, Mood Lability, Anxiety, Agitation, Hallucinations - Patient Data Vitals - Most Recent: Last Vital Signs Temp 98.9 F 01/18/20 11:00 Pulse 86 01/18/20 11:00 Resp 16 01/18/20 11:00 BP 113/68 01/18/20 11:00 Pulse Ox 95 01/18/20 11:00 Orthostatic Blood Pressure [ 110/74 Standing] Orthostatic Blood Pressure [ 141/89 Sitting] Orthostatic Blood Pressure [ 156/86 Supine] Weight - Most Recent: 167 lb I&O - Last 24 hours: Intake & Output 01/17/20 01/18/20 01/18/20 22:59 06:59 14:59 Intake Total 120 300 Output Total 500 Balance 120 -200 Lab Results - Last 24 hrs: Laboratory Results - last 24 hr 01/18/20 01/18/20 Range/Units 07:50 07:50 WBC 6.34 (5.00-10.00) 10^3/uL RBC 3.81 L (4.50-6.00) 10^6/uL Hgb 12.5 L (13.0-17.0) g/dL Hct 36.9 L (40.0-52.0) % MCV 96.9 H (82.0-92.0) fL MCH 32.8 H (27.0-31.0) pg MCHC 33.9 (32.0-36.0) g/dL RDW 16.4 H (11.5-14.5) % Plt Count 225 (150-400) 10^3/uL MPV 9.9 (7.4-10.4) fL Immature Gran % (Auto) 0.2 (0.0-5.0) % Neut % (Auto) 51.6 (50.0-70.0) % Lymph % (Auto) 34.7 (20.0-40.0) % [place] % (Auto) 8.0 (2.0-8.0) % Eos % (Auto) 4.6 H (1.0-3.0) % Baso % (Auto) 0.9 (0.0-1.0) % Neut # (Auto) 3.27 (2.50-7.00) 10^3/uL Lymph # (Auto) 2.20 (1.00-4.00) 10^3/uL [place] # (Auto) 0.51 (0.10-0.80) 10^3/uL Eos # (Auto) 0.29 (0.10-0.30) 10^3/uL Baso # (Auto) 0.06 (0.00-0.10) 10^3/uL Immature Gran # (Auto) 0.01 (0.00-0.50) 10^3/uL Sodium 146 H (136-145) mmol/L Potassium 3.8 (3.3-5.3) mmol/L Chloride 107 (98-115) mmol/L Carbon Dioxide 28.9 (21.0-32.0) mmol/L Anion Gap 13.9 (5-15) mmol/L BUN 19 (6-25) mg/dL Creatinine 1.32 H (0.51-1.17) mg/dL Est Cr Clr Drug Dosing 59.91 mL/min Estimated GFR (MDRD) 55 mL/min Glucose 92 (75 - 99) mg/dL Calcium 8.6 L (8.7-10.3) mg/dL Total Bilirubin 0.5 (0.2-1.0) mg/dL AST 17 (15-37) U/L ALT 20 (12-78) U/L Alkaline Phosphatase 68 (46-116) IU/L Troponin I 0.06 (0.00-0.070) ng/mL Total Protein 6.4 (6.4-8.2) g/dL Albumin 3.29 (3.00-4.80) g/dL Med Orders - Current: Current Medications Acetaminophen (Tylenol) 650 mg PO Q4H PRN PRN Reason: Pain Last Admin: 01/18/20 13:00 Dose: 650 mg Hydrocodone Bitart/Acetaminophen ([place] 325-5 Mg) 1 tab PO Q4H PRN PRN Reason: chest wall pain Last Admin: 01/17/20 23:17 Dose: 1 tab Alprazolam (Xanax) 1 mg PO Q8H PRN PRN Reason: ANXIETY Last Admin: 01/16/20 21:16 Dose: 1 mg Atropine Sulfate (Atropine 0.1 Mg/Ml) 0 mg IVPUSH ASDIRECTED PRN PRN Reason: Heart. Epinephrine HCl (Epinephrine 1:10,000) 1 mg IVPUSH ASDIRECTED PRN PRN Reason: Heart. Fluvoxamine Maleate (Luvox) 100 mg PO DAILY [facility] Last Admin: 01/18/20 09:05 Dose: 100 mg Fluvoxamine Maleate (Luvox) 250 mg PO BEDTIME JONAS Last Admin: 01/17/20 23:16 Dose: 250 mg Sodium Chloride (Normal Saline) 1,000 mls @ 75 mls/hr IV ASDIRECTED JONAS Last Admin: 01/16/20 19:01 Dose: 75 mls/hr Sodium Chloride (Normal Saline) 50 mls @ 200 mls/min IV ASDIRECTED JONAS Last Admin: 01/17/20 13:40 Dose: 200 mls/min Isosorbide Mononitrate (Imdur) 30 mg PO DAILY [facility] Last Admin: 01/18/20 09:05 Dose: 30 mg Lidocaine (Lidoderm 5%) 700 mg TOP Q24H [facility] Last Admin: 01/18/20 10:58 Dose: Not Given Lidocaine HCl (Xylocaine 2%) 0 mg IVPUSH ASDIRECTED PRN PRN Reason: Heart. Melatonin (Melatonin) 3 mg PO BEDTIME [facility] Last Admin: 01/17/20 23:17 Dose: 3 mg Miscellaneous Information (Remove Patch) 1 ea TRDERM Q24H [facility] Last Admin: 01/17/20 23:15 Dose: 1 ea Nitroglycerin (Nitrostat) 0.4 mg SL ASDIRECTED PRN PRN Reason: Heart. Last Admin: 01/15/20 21:08 Dose: 0.4 mg Oxycarbazepine 300 (Mg Own Med) 0 each PO BEDTIME [facility] Last Admin: 01/17/20 23:16 Dose: 1 each Risperidone (Risperidal) 3 mg PO BEDTIME [facility] Last Admin: 01/17/20 23:17 Dose: 3 mg Rivaroxaban (Xarelto) 20 mg PO DAILY@1800 [facility] Last Admin: 01/17/20 17:45 Dose: 20 mg Discontinued Medications Aspirin (Aspirin) Confirm Administered Dose 324 mg .ROUTE .STK-MED ONE Stop: 01/15/20 12:30 Last Admin: 01/15/20 13:47 Dose: Not Given Aspirin (Aspirin) 324 mg PO ONETIME ONE Stop: 01/15/20 12:26 Last Admin: 01/15/20 12:30 Dose: 324 mg Fluvoxamine Maleate (Luvox) 200 mg PO BEDTIME [facility] Fluvoxamine Maleate (Luvox) 150 mg PO DAILY@0800 [facility] Sodium Chloride (Normal Saline) 1,000 mls @ 999 mls/hr IV .BOLUS ONE Stop: 01/15/20 12:36 Last Admin: 01/15/20 11:40 Dose: 999 mls/hr Iopamidol (Isovue-370 (76%)) 100 ml IV ONETIME ONE Stop: 01/17/20 10:20 Last Admin: 01/17/20 13:40 Dose: 75 ml Alprazolam [ Alprazolam] 1 Mg * Ptom* 1 each PO Q8H PRN PRN Reason: Anxiety Last Admin: 01/15/20 22:24 Dose: 1 each Fluvoxamine 100 Mg (Tab Ptom) 2 each PO BEDTIME [facility] Last Admin: 01/15/20 22:41 Dose: 2 each Fluvoxamine 100 Mg (Tab Ptom) 1.5 each PO 0800 [facility] Last Admin: 01/16/20 11:49 Dose: 1.5 each Melatonin 3 Mg Tab * (*Ptom) 1 each PO BEDTIME [facility] Last Admin: 01/15/20 22:41 Dose: 1 each Own Med ( Oxcarbazepine [ Trileptal] 300 Mg) 0 mg PO BID [facility] Last Admin: 01/16/20 09:34 Dose: Not Given Risperidone 2 Mg Tab (Ptom) 0.5 each PO 0800 [facility] Last Admin: 01/16/20 11:48 Dose: 0.5 each Risperidone 2 Mg Tab (Ptom) 1 each PO BEDTIME [facility] Last Admin: 01/15/20 22:42 Dose: 1 each Rivaroxaban 20 Mg (Tab Ptom) 1 each PO DAILY@1800 [facility] Last Admin: 01/15/20 18:10 Dose: 1 each Own Med ( Oxcarbazepine [ Trileptal] 300 Mg) 450 mg PO BID [facility] Own Med ( Oxcarbazepine [ Trileptal] 300 Mg) 150 mg PO BID [facility] Last Admin: 01/16/20 11:49 Dose: 150 mg Risperidone (Risperidal) 1 mg PO DAILY@0800 [facility] Risperidone (Risperidal) 2 mg PO BEDTIME [facility] Risperidone (Risperidal) 2 mg PO ONETIME ONE Stop: 01/16/20 21:01 Last Admin: 01/16/20 21:06 Dose: 2 mg - Exam Quality Assessment: Denies: Supplemental Oxygen General: Reports: Alert, Oriented HEENT: Reports: Pupils Equal, Pupils Reactive Neck: Reports: Supple Lungs: Reports: Clear to Auscultation, Normal Respiratory Effort, Other ( reproducible chest wall pain to the anterior and lateral aspect of the chest wall. along anterior axillary line. ). Denies: Rub Cardiovascular: Reports: Regular Rate, Regular Rhythm, No Murmurs GI/Abdominal Exam: Normal Bowel Sounds, Soft, Non-Tender (Male) Exam: Deferred Rectal (Males) Exam: Deferred Back Exam: Reports: Normal Inspection Extremities: Normal Range of Motion, No Pedal Edema Skin: Reports: Other (pre-exisiting/chronic left facial wound. ecchymosis with small abrasion to left forehead) Wound/Incisions: Reports: Other (chronic left facial wound) Neurological: Reports: No New Focal Deficit Psy/Mental Status: Reports: Alert, Normal Affect, Normal Mood
== END 2020-01-18 16:10 | disposition home or self-care (01) | DRG 282 ==
LOC: KA.ED 10:30 → KA.MS 12:57 → OBSVTOIN 01-16 12:31
PROVIDERS: ADMIT Nurse Practitioner Family; ATTEND Nurse Practitioner Family
DX: R55 Syncope and collapse (principal); Z95.0 Presence of cardiac pacemaker; I21.4 Non-ST elevation (NSTEMI) myocardial infarction; H54.7 Unspecified visual loss; R09.1 Pleurisy; Z86.718 Personal history of other venous thrombosis and embolism; M94.0 Chondrocostal junction syndrome [Tietze]; E78.00 Pure hypercholesterolemia, unspecified; Z87.11 Personal history of peptic ulcer disease; F32.9 Major depressive disorder, single episode, unspecified; I10 Essential (primary) hypertension; Z86.14 Personal history of Methicillin resistant Staphylococcus aureus infection; E66.9 Obesity, unspecified; S01.80XS Unspecified open wound of other part of head, sequela; X58.XXXS Exposure to other specified factors, sequela; F41.9 Anxiety disorder, unspecified; F42.9 Obsessive-compulsive disorder, unspecified; Z79.01 Long term (current) use of anticoagulants; F17.200 Nicotine dependence, unspecified, uncomplicated; Z88.5 Allergy status to narcotic agent; Z91.030 Bee allergy status; Z88.8 Allergy status to other drugs, medicaments and biological substances; Z79.899 Other long term (current) drug therapy; I25.2 Old myocardial infarction; Z86.711 Personal history of pulmonary embolism; Z68.24 Body mass index [BMI] 24.0-24.9, adult
CPT/HCPCS: 36415; 70450; 71046; 71260; 80048; 80053; 80183; 80305-QW; 84484; 85025; 85730; 93005; 96360; 96361; 99284; 99285-25; A9270-GY; G0378; J7030; J7050; Q9967

== ENCOUNTER 2020-08-19 14:20 | Emergency (ER) | payer MEDICARE, MEDICAID ==
[2020-08-19] MEDS ORDERED: Sodium Chloride 0.9% 10 ML Syringe FLUSH PRN (14:39)
--- NOTE | 2020-08-19 14:42 | EDM.PDOC ---
ED HPI GENERAL MEDICAL PROBLEM - General Chief Complaint: General Stated Complaint: LIGHT HEADED Time Seen by Provider: 08/19/20 14:30 Source of Information: Reports: Patient, Provider History Limitations: Reports: No Limitations - History of Present Illness INITIAL COMMENTS - FREE TEXT/NARRATIVE: 65 YO WF PRESENTS TO ER FROM CLINIC WITH COMPLAINTS OF DIZZINESS AND WEAKNESS. PT REPORTS THIS IS A CHRONIC PROBLEM FOR HIM, BUT TODAY IT BECAME WORSE. PT DENIES ANY SYNCOPE OR NEAR SYNCOPE. PT DENIES ANY ASSOCIATED CHEST PAIN, SHORTNESS OF BREATH, NAUSEA OR DIAPHORESIS. PT DENIES FEVER/CHILLS, NO URI SYMPTOMS, NO COUGH/CONGESTION. PT WAS SEEN IN CLINIC AND HAD AN INITIAL BP OF 80'S/50'S PROMPTING CONCERN AND RECOMMENDATION TO COME TO ER. CURRENT VITAL SIGNS IN ER WERE STABLE WITH A BP OF 117/73 CURRENTLY AND NO FEVER. PT ALERT AND ORIENTED X 4, GCS-15, AND NAD. Onset: Today Duration: Chronic Location: Reports: Head Quality: Reports: Ache Severity: Moderate Improves with: Reports: Rest Worsens with: Reports: Movement Associated Symptoms: Reports: Weakness. Denies: Confusion, Chest Pain, Cough, cough w sputum, Diaphoresis, Fever/Chills, Headaches, Loss of Appetite, N ausea/Vomiting, Rash, Seizure, Shortness of Breath, Syncope - Related Data Allergies Allergy/AdvReac Type Severity Reaction Status Date / Time galantamine [Galantamine] Allergy Mild Itching Verified 08/19/20 15:03 bee venom protein (honey bee) Allergy Swelling Verified 08/19/20 15:03 hydrocodone Allergy Confusion Verified 08/19/20 15:03 Home Meds: Home Meds ALPRAZolam [Alprazolam] 1 mg PO Q8H PRN 10/19/15 [History] Rivaroxaban [Xarelto] 30 mg PO DAILY@1800 12/25/18 [History] Erythromycin Base [Erythromycin] 1 applic EYELF QID 10/24/19 [History] Melatonin 3 mg PO BEDTIME 01/15/20 [History] OXcarbazepine [Trileptal] 300 mg PO BEDTIME 01/18/20 [History] fluvoxaMINE [Luvox] 100 mg PO DAILY tablet 01/18/20 [Rx] fluvoxaMINE [Luvox] 250 mg PO BEDTIME tablet 01/18/20 [Rx] Albuterol/Ipratropium [DuoNeb 3.0-0.5 MG/3 ML] 3 ml INH Q6H PRN 08/19/20 [History] Meclizine [Antivert] 25 mg PO BEDTIME 08/19/20 [History] risperiDONE [Risperdal] 1 mg PO 0800 08/19/20 [History] risperiDONE [Risperdal] 2 mg PO BEDTIME 08/19/20 [History] Past Medical History - Past Health History Medical/Surgical History: Denies Medical/Surgical History HEENT History: Reports: Impaired Vision, Other (See Below) Other HEENT History: wound to left side of the eye. left eye is covered by a telfa that is covering wound on face Cardiovascular History: Reports: Arrhythmia, Blood Clots/VTE/DVT, High Cholesterol, Hypertension, [place], Syncope Other Cardiovascular History: prior cardiac arrest Respiratory History: Reports: Bronchitis, Recurrent, PE Other Respiratory History: Pleurisy Gastrointestinal History: Reports: None, PUD Genitourinary History: Reports: None Musculoskeletal History: Reports: Fracture, Other (See Below) Other Musculoskeletal History: osteomyelitis, face Neurological History: Reports: Other (See Below) Other Neuro History: brain surgery to cover nerve endings x 2 last surgery 1999. trigeminal nueralgia Psychiatric History: Reports: Anxiety, Mood Swings Other Psychiatric History: none Endocrine/Metabolic History: Reports: Obesity/BMI 30+ Hematologic History: Reports: Anticoagulation Therapy Immunologic History: Reports: None Oncologic (Cancer) History: Reports: None Dermatologic History: Reports: Other (See Below) Other Dermatologic History: Open sores to face - Infectious Disease History Infectious Disease History: Reports: MRSA - Past Surgical History Head Surgeries/Procedures: Reports: Craniotomy HEENT Surgical History: Reports: None Cardiovascular Surgical History: Reports: None Respiratory Surgical History: Reports: None GI Surgical History: Reports: None Male Surgical History: Reports: None Musculoskeletal Surgical History: Reports: None Oncologic Surgical History: Reports: None Dermatological Surgical History: Reports: Plastic Surgical Reconstruction/Repair Social & Family History - Family History Family Medical History: No Pertinent Family History Cardiac: Reports: Prior Cardiac Arrest, Stent Endocrine/Metabolic: Reports: Diabetes, type II Oncologic: Reports: Bone - Caffeine Use Caffeine Use: Reports: None Other Caffeine Use: mt dew 1-2 bottles a day - Living Situation & Occupation Living situation: Reports: Single, with Significant Other Occupation: Disabled ED ROS GENERAL - Review of Systems Review Of Systems: See Below Constitutional: Reports: Weakness HEENT: Reports: No Symptoms Respiratory: Reports: No Symptoms Cardiovascular: Reports: Lightheadedness Endocrine: Reports: No Symptoms GI/Abdominal: Reports: No Symptoms : Reports: No Symptoms Musculoskeletal: Reports: No Symptoms Skin: Reports: No Symptoms Neurological: Reports: Dizziness Psychiatric: Reports: No Symptoms Hematologic/Lymphatic: Reports: No Symptoms Immunologic: Reports: No Symptoms ED EXAM, GENERAL - Physical Exam Exam: See Below Exam Limited By: No Limitations General Appearance: Alert, WD/WN, No Apparent Distress Eye Exam: Bilateral Eye: EOMI, PERRL Head: Atraumatic, Normocephalic Neck: Normal Inspection, Supple, Non-Tender, Full Range of Motion Respiratory/Chest: No Respiratory Distress, Lungs Clear, Normal Breath Sounds, No Accessory Muscle Use, Chest Non-Tender Cardiovascular: Normal Peripheral Pulses, Regular Rate, Rhythm, No Edema, No Gallop, No JVD, No Murmur, No Rub GI/Abdominal: Normal Bowel Sounds, Soft, Non-Tender, No Organomegaly, No Distention, No Abnormal Bruit, No Mass Back Exam: Normal Inspection, Full Range of Motion, NT Extremities: Normal Inspection, Normal Range of Motion, Non-Tender, Normal Capillary Refill, No Pedal Edema Neurological: Alert, Oriented, CN II-XII Intact, Normal Cognition, Normal Gait, Normal Reflexes, No Motor/Sensory Deficits Psychiatric: Normal Affect, Normal Mood Skin Exam: Warm, Dry, Intact, Normal Color, No Rash Lymphatic: No Adenopathy #1 Interpretation EKG Date: 08/19/20 Time: 14:37 Rhythm: NSR Rate (Beats/Min): 79 [place]: Normal P-Wave: Present QRS: Normal ST-T: Normal QT: Normal EKG Interpretation Comments: 100% AV PACED Course - Vital Signs Last Recorded V/S: Last Vital Signs Temp 97.1 F 08/19/20 14:20 Pulse 68 08/19/20 15:00 Resp 21 H 08/19/20 15:00 BP 111/69 08/19/20 15:00 Pulse Ox 95 08/19/20 15:00 Orthostatic Blood Pressure [ 90/67 Standing] Orthostatic Blood Pressure [ 117/73 Supine] - Orders/Labs/Meds Orders: Active Orders 24 hr Category Date Time Status Blood Pressure Mgt: Sepsis [RC] Q15MX2 Care 08/19/20 14:40 Active Cardiac Monitoring [RC] CONTINUOUS Care 08/19/20 14:40 Active EKG Documentation Completion [RC] ASDIRECTED Care 08/19/20 14:27 Active Orthostatic Vital Signs [RC] ASDIRECTED Care 08/19/20 14:50 Active CULTURE BLOOD [BC] Stat Lab 08/19/20 15:10 Received CULTURE BLOOD [BC] Stat Lab 08/19/20 15:20 Received INR,PT,PROTHROMBIN TIME [COAG] Stat Lab 08/19/20 14:56 Received PTT,PARTIAL THROMBOPLSTIN TIME [COAG] Stat Lab 08/19/20 14:56 Received UA W/MICROSCOPIC [URIN] Stat Lab 08/19/20 15:43 Received Sodium Chloride 0.9% [Saline Flush] Med 08/19/20 14:39 Active 10 ml FLUSH Q8HR PRN Blood Culture x2 Reflex Set [OM.PC] Stat Oth 08/19/20 14:39 Ordered Saline Lock Insert [OM.PC] Stat Oth 08/19/20 14:39 Ordered Severe Sepsis Onset Time [OM.PC] Stat Oth 08/19/20 14:39 Ordered EKG 12 Lead [EK] Stat Ther 08/19/20 14:27 Ordered Medication Orders Sodium Chloride (Saline Flush) 10 ml FLUSH Q8HR PRN PRN Reason: keep vein open Labs: Laboratory Tests 08/19/20 08/19/20 08/19/20 Range/Units 14:56 14:56 14:56 WBC 7.11 (5.00-10.00) 10^3/uL RBC 3.48 L (4.50-6.00) 10^6/uL Hgb 10.9 L D (13.0-17.0) g/dL Hct 33.4 L (40.0-52.0) % MCV 96.0 H (82.0-92.0) fL MCH 31.3 H (27.0-31.0) pg MCHC 32.6 (32.0-36.0) g/dL RDW 15.8 H (11.5-14.5) % Plt Count 293 (150-400) 10^3/uL MPV 9.3 (7.4-10.4) fL Immature Gran % (Auto) 0.1 (0.0-5.0) % Neut % (Auto) 65.6 (50.0-70.0) % Lymph % (Auto) 24.3 (20.0-40.0) % [place] % (Auto) 7.9 (2.0-8.0) % Eos % (Auto) 1.5 (1.0-3.0) % Baso % (Auto) 0.6 (0.0-1.0) % Neut # (Auto) 4.66 (2.50-7.00) 10^3/uL Lymph # (Auto) 1.73 (1.00-4.00) 10^3/uL [place] # (Auto) 0.56 (0.10-0.80) 10^3/uL Eos # (Auto) 0.11 (0.10-0.30) 10^3/uL Baso # (Auto) 0.04 (0.00-0.10) 10^3/uL Immature Gran # (Auto) 0.01 (0.00-0.50) 10^3/uL Sodium 139 (136-145) mmol/L Potassium 4.0 (3.3-5.3) mmol/L Chloride 104 (98-115) mmol/L Carbon Dioxide 28.5 (21.0-32.0) mmol/L Anion Gap 10.5 (5-15) mmol/L BUN 20 (6-25) mg/dL Creatinine 1.55 H (0.51-1.17) mg/dL Est Cr Clr Drug Dosing 46.51 mL/min Estimated GFR (MDRD) 46 mL/min Glucose 109 H (75 - 99) mg/dL Lactic Acid (0.4-2.0) mmol/L Calcium 8.7 (8.7-10.3) mg/dL Total Bilirubin 0.2 (0.2-1.0) mg/dL AST 12 L (15-37) U/L ALT 15 (12-78) U/L Alkaline Phosphatase 84 (46-116) IU/L Troponin I 0.04 (0.00-0.070) ng/mL Total Protein 6.9 (6.4-8.2) g/dL Albumin 3.36 (3.00-4.80) g/dL 08/19/20 Range/Units 14:56 WBC (5.00-10.00) 10^3/uL RBC (4.50-6.00) 10^6/uL Hgb (13.0-17.0) g/dL Hct (40.0-52.0) % MCV (82.0-92.0) fL MCH (27.0-31.0) pg MCHC (32.0-36.0) g/dL RDW (11.5-14.5) % Plt Count (150-400) 10^3/uL MPV (7.4-10.4) fL Immature Gran % (Auto) (0.0-5.0) % Neut % (Auto) (50.0-70.0) % Lymph % (Auto) (20.0-40.0) % [place] % (Auto) (2.0-8.0) % Eos % (Auto) (1.0-3.0) % Baso % (Auto) (0.0-1.0) % Neut # (Auto) (2.50-7.00) 10^3/uL Lymph # (Auto) (1.00-4.00) 10^3/uL [place] # (Auto) (0.10-0.80) 10^3/uL Eos # (Auto) (0.10-0.30) 10^3/uL Baso # (Auto) (0.00-0.10) 10^3/uL Immature Gran # (Auto) (0.00-0.50) 10^3/uL Sodium (136-145) mmol/L Potassium (3.3-5.3) mmol/L Chloride (98-115) mmol/L Carbon Dioxide (21.0-32.0) mmol/L Anion Gap (5-15) mmol/L BUN (6-25) mg/dL Creatinine (0.51-1.17) mg/dL Est Cr Clr Drug Dosing mL/min Estimated GFR (MDRD) mL/min Glucose (75 - 99) mg/dL Lactic Acid 0.8 (0.4-2.0) mmol/L Calcium (8.7-10.3) mg/dL Total Bilirubin (0.2-1.0) mg/dL AST (15-37) U/L ALT (12-78) U/L Alkaline Phosphatase (46-116) IU/L Troponin I (0.00-0.070) ng/mL Total Protein (6.4-8.2) g/dL Albumin (3.00-4.80) g/dL Meds: Medications Generic Name Dose Route Start Last Admin Trade Name Freq PRN Reason Stop Dose Admin Sodium Chloride 10 ml 08/19/20 14:39 Saline Flush FLUSH Q8HR PRN keep vein open Discontinued Medications Generic Name Dose Route Start Last Admin Trade Name Freq PRN Reason Stop Dose Admin Sodium Chloride 1,000 mls @ 1,000 drops/min 08/19/20 14:39 08/19/20 15:00 Normal Saline IV 08/19/20 14:53 1,000 drops/min BOLUS ONE Administration Protocol - Radiology Interpretation Free Text/Narrative:: PT REPORTS DIZZINESS IMPROVED AFTER IVF. PT ALERT AND ORIENTED X 4 AND IN NAD. PT AGREEABLE TO DISCHARGE AND WILL INCREASE ORAL FLUIDS AT HOME AND RETURN TO ER FOR WORSENING SYMPTOMS - Re-Assessments/Exams Free Text/Narrative Re-Assessment/Exam: 08/19/20 14:56 ORTHOSTATICS ARE POSITIVE LYING- P 72/ BP- 117/73 STANDING P- 95 BP- 90/67 Departure - Departure Time of Disposition: 15:59 Disposition: Home, Self-Care 01 Condition: Good Clinical Impression: Orthostatic hypotension, Dizziness - Discharge Information Instructions: Orthostatic Hypotension, Dizziness, [id number] Referrals: Mal Gonsalez, PODIATRIC MEDICINE PROFESSOR [Primary Care Provider] - Forms: ED Department Discharge Additional Instructions: 1. DISCHARGE HOME 2. RECOMMENDED TO INCREASE ORAL FLUIDS- 64OZ OF WATER PER DAY 3. CONTINUE YOUR HOME MEDICATIONS SCHEDULED 4. FOLLOW UP WITH PCP FOR FURTHER EVALUATION AND TREATMENT 5. RETURN TO ER FOR WORSENING SYMPTOMS Sepsis Event Note (ED) - Evaluation Sepsis Screening Result: No Definite Risk - Focused Exam Vital Signs: Vital Signs Temp Pulse Resp BP Pulse Ox 08/19/20 15:00 68 21 H 111/69 95 08/19/20 14:55 111/69 08/19/20 14:40 90/67 08/19/20 14:20 97.1 F 74 23 H 116/73 96 - My Orders Last 24 Hours: My Active Orders 08/19/20 14:27 EKG Documentation Completion [RC] ASDIRECTED EKG 12 Lead [EK] Stat 08/19/20 14:39 Sodium Chloride 0.9% [Saline Flush] 10 ml FLUSH Q8HR PRN Blood Culture x2 Reflex Set [OM.PC] Stat Saline Lock Insert [OM.PC] Stat Severe Sepsis Onset Time [OM.PC] Stat 08/19/20 14:40 Blood Pressure Mgt: Sepsis [RC] Q15MX2 Cardiac Monitoring [RC] CONTINUOUS 08/19/20 14:50 Orthostatic Vital Signs [RC] ASDIRECTED 08/19/20 14:56 INR,PT,PROTHROMBIN TIME [COAG] Stat PTT,PARTIAL THROMBOPLSTIN TIME [COAG] Stat 08/19/20 15:10 CULTURE BLOOD [BC] Stat 08/19/20 15:20 CULTURE BLOOD [BC] Stat 08/19/20 15:43 UA W/MICROSCOPIC [URIN] Stat - Assessment/Plan Last 24 Hours: My Active Orders 08/19/20 14:27 EKG Documentation Completion [RC] ASDIRECTED EKG 12 Lead [EK] Stat 08/19/20 14:39 Sodium Chloride 0.9% [Saline Flush] 10 ml FLUSH Q8HR PRN Blood Culture x2 Reflex Set [OM.PC] Stat Saline Lock Insert [OM.PC] Stat Severe Sepsis Onset Time [OM.PC] Stat 08/19/20 14:40 Blood Pressure Mgt: Sepsis [RC] Q15MX2 Cardiac Monitoring [RC] CONTINUOUS 08/19/20 14:50 Orthostatic Vital Signs [RC] ASDIRECTED 08/19/20 14:56 INR,PT,PROTHROMBIN TIME [COAG] Stat PTT,PARTIAL THROMBOPLSTIN TIME [COAG] Stat 08/19/20 15:10 CULTURE BLOOD [BC] Stat 08/19/20 15:20 CULTURE BLOOD [BC] Stat 08/19/20 15:43 UA W/MICROSCOPIC [URIN] Stat Assessment:: 1. ORTHOSTATIC HYPOTENSION- IMPROVED AFTER IVF 2. DIZZINESS- IMPROVED Plan: 1. DISCHARGE HOME 2. RECOMMENDED TO INCREASE ORAL FLUIDS- 64OZ OF WATER PER DAY 3. CONTINUE YOUR HOME MEDICATIONS SCHEDULED 4. FOLLOW UP WITH PCP FOR FURTHER EVALUATION AND TREATMENT 5. RETURN TO ER FOR WORSENING SYMPTOMS
[2020-08-19] MEDS: Sodium Chloride 0.9% 1,000 ML IV ONE (15:00)
--- NOTE | 2020-08-19 15:04 | CT ---
[id number] CT/CT Head WO IV EXAM: CT Head WO IV CLINICAL DATA: NEUROLOGIC DEFICIT COMPARISON: CORRELATION IS MADE WITH JANUARY 15, 2020 FINDINGS: There is no mass or mass effect. Old ischemic changes are seen involving the left posterior inferior cerebellar distribution There is no hemorrhage or hydrocephalus. There are no extra-axial fluid collections. IMPRESSION: NO PLAIN CT EVIDENCE OF ACUTE INTRACRANIAL PROCESS. Jus Vinson MD 08/19/20 [id number] Thank you for allowing us to participate in the care of your patient.
--- NOTE | 2020-08-19 15:14 | CR ---
[id number] RAD/RAD Chest PA And Lateral EXAM: FRONTAL AND LATERAL CHEST INDICATION: LIGHTHEADEDNESS. COMPARISON: October 24, 2019. DISCUSSION: Hyperinflation suggests underlying COPD. Trace bilateral pleural effusions are suggested and similar to the prior study. Normal heart size. Left subclavian approach pacemaker leads RA and RV. IMPRESSION: 1. COPD. 2. Stable small bilateral pleural effusions. Stef Ricardo MD 08/19/20 1696 Thank you for allowing us to participate in the care of your patient.
[2020-08-19 15:28] LABS: ANION GAP 10.5 mmol/L (5-15)
[2020-08-19 15:57] LABS: PTT,PARTIAL THROMBOPLSTIN TIME 29.2 SEC (22.8-31.4)
[2020-08-19 16:24] VITALS: BP 135/68; PULSE 81
== END 2020-08-19 16:40 | disposition home or self-care (01) ==
LOC: KA.ED 14:20
DX: I95.1 Orthostatic hypotension (principal); E66.9 Obesity, unspecified; Z68.21 Body mass index [BMI] 21.0-21.9, adult; Z88.8 Allergy status to other drugs, medicaments and biological substances; Z91.030 Bee allergy status; Z88.5 Allergy status to narcotic agent; Z79.01 Long term (current) use of anticoagulants; Z79.899 Other long term (current) drug therapy; Z86.718 Personal history of other venous thrombosis and embolism; Z86.711 Personal history of pulmonary embolism
CPT/HCPCS: 70450; 71046; 80053; 81001; 83605; 84484; 85025; 85610; 85730; 87040; 93005; 99284; 99285-25; J7030

== ENCOUNTER 2020-09-12 18:33 | Emergency (ER) | payer MEDICARE, MEDICAID ==
--- NOTE | 2020-09-12 18:55 | EDM.PDOC ---
ED HPI GENERAL MEDICAL PROBLEM - General Chief Complaint: Lower Extremity Injury/Pain Stated Complaint: RIGHT ANKLE INJURY Time Seen by Provider: 09/12/20 18:50 Source of Information: Reports: Patient History Limitations: Reports: No Limitations - History of Present Illness INITIAL COMMENTS - FREE TEXT/NARRATIVE: Presents emergency room for right ankle injury which occurred last night. Patient was walking down some steps slipped on the steps and twisted his right ankle. He is unsure exactly what direction his ankle went however he has pain on the anterior lateral aspect of his right ankle and there is localized swelling and bruising. Denies any other injury denies any head neck back or upper extremity injury. Denies any loss consciousness. Rates pain sharp constant 10 out of 10. Did not take anything prior to arrival for pain. Right Ankle Pain Score (Numeric/FACES): 10 - Related Data Allergies Allergy/AdvReac Type Severity Reaction Status Date / Time galantamine [Galantamine] Allergy Mild Itching Verified 09/12/20 18:36 bee venom protein (honey bee) Allergy Swelling Verified 09/12/20 18:36 hydrocodone Allergy Confusion Verified 09/12/20 18:36 Home Meds: Home Meds ALPRAZolam [Alprazolam] 1 mg PO Q8H PRN 10/19/15 [History] Rivaroxaban [Xarelto] 30 mg PO DAILY@1800 12/25/18 [History] Erythromycin Base [Erythromycin] 1 applic EYELF QID 10/24/19 [History] Melatonin 3 mg PO BEDTIME 01/15/20 [History] OXcarbazepine [Trileptal] 300 mg PO BEDTIME 01/18/20 [History] fluvoxaMINE [Luvox] 100 mg PO DAILY tablet 01/18/20 [Rx] fluvoxaMINE [Luvox] 250 mg PO BEDTIME tablet 01/18/20 [Rx] Albuterol/Ipratropium [DuoNeb 3.0-0.5 MG/3 ML] 3 ml INH Q6H PRN 08/19/20 [History] Meclizine [Antivert] 25 mg PO BEDTIME 08/19/20 [History] risperiDONE [Risperdal] 1 mg PO 0800 08/19/20 [History] risperiDONE [Risperdal] 2 mg PO BEDTIME 08/19/20 [History] Past Medical History - Past Health History Medical/Surgical History: Denies Medical/Surgical History HEENT History: Reports: Impaired Vision, Other (See Below) Other HEENT History: wound to left side of the eye. left eye is covered by a telfa that is covering wound on face Cardiovascular History: Reports: Arrhythmia, Blood Clots/VTE/DVT, High Cholesterol, Hypertension, [place], Pacemaker, Syncope Other Cardiovascular History: prior cardiac arrest Respiratory History: Reports: Bronchitis, Recurrent, COPD, PE Other Respiratory History: Pleurisy Gastrointestinal History: Reports: None, PUD Genitourinary History: Reports: None Musculoskeletal History: Reports: Fracture, Other (See Below) Other Musculoskeletal History: osteomyelitis, face Neurological History: Reports: Other (See Below) Other Neuro History: brain surgery to cover nerve endings x 2 last surgery 1999. trigeminal nueralgia Psychiatric History: Reports: Addiction, Anxiety, Mood Swings, OCD Other Psychiatric History: none Endocrine/Metabolic History: Reports: Obesity/BMI 30+ Hematologic History: Reports: Anticoagulation Therapy Immunologic History: Reports: None Oncologic (Cancer) History: Reports: None Dermatologic History: Reports: Other (See Below) Other Dermatologic History: Open sores to face - Infectious Disease History Infectious Disease History: Reports: MRSA - Past Surgical History Head Surgeries/Procedures: Reports: Craniotomy HEENT Surgical History: Reports: None Cardiovascular Surgical History: Reports: None Respiratory Surgical History: Reports: None GI Surgical History: Reports: None Male Surgical History: Reports: None Other Neurological Surgeries/Procedures: none Musculoskeletal Surgical History: Reports: None Oncologic Surgical History: Reports: None Dermatological Surgical History: Reports: Plastic Surgical Reconstruction/Repair Social & Family History - Family History Family Medical History: No Pertinent Family History Cardiac: Reports: Prior Cardiac Arrest, Stent Endocrine/Metabolic: Reports: Diabetes, type II Oncologic: Reports: Bone - Tobacco Use Tobacco Use Status *Q: Current Every Day Tobacco User Years of Tobacco use: 55 Packs/Tins Daily: 1 - Caffeine Use Caffeine Use: Reports: None Other Caffeine Use: mt dew 1-2 bottles a day - Recreational Drug Use Recreational Drug Use: Yes Recreational Drug Type: Reports: Marijuana/Hashish - Living Situation & Occupation Living situation: Reports: Single, with Significant Other Occupation: Disabled Review of Systems - Review of Systems Review Of Systems: Comprehensive ROS is negative, except as noted in HPI. Musculoskeletal: Reports: Joint Pain, Joint Swelling, Other (Right ankle swelling and pain) ED EXAM, GENERAL - Physical Exam Exam: See Below Exam Limited By: No Limitations General Appearance: Alert, WD/WN, No Apparent Distress Head: Normocephalic, Other (Ulcerated skin lesions on his left cheek forehead status post multiple skin grafting.) Back Exam: Normal Inspection, Full Range of Motion Extremities: Joint Swelling, Other (Mild right ankle swelling pain on palpation on the anterior lateral aspect with some faint ecchymosis. Distal neurovascular intact.) Neurological: Alert, Oriented Psychiatric: Normal Affect, Normal Mood Skin Exam: Warm, Dry, Intact Course - Vital Signs Last Recorded V/S: Last Vital Signs Temp 99 F 09/12/20 19:30 Pulse 61 09/12/20 19:30 Resp 20 09/12/20 19:30 BP 129/66 09/12/20 19:30 Pulse Ox 98 09/12/20 19:30 - Orders/Labs/Meds Meds: Medications Discontinued Medications Generic Name Dose Route Start Last Admin Trade Name Filipe PRN Reason Stop Dose Admin Acetaminophen 650 mg 09/12/20 18:55 09/12/20 18:58 Tylenol PO 09/12/20 18:56 650 mg NOW ONE Administration - Re-Assessments/Exams Free Text/Narrative Re-Assessment/Exam: 09/12/20 18:56 X-ray obtained 650 mg p.o. Tylenol given for pain. The right ankle was elevated ice applied. Distal neurovascular intact 09/12/20 19:41 Will be weightbearing as tolerated as he has a stable fracture. Patient was placed in a cam boot to help stabilize the ankle fracture and for him to complete active daily living functions. I also prescribed him a front wheel walker prescription and he is going fill at the local pharmacy as he will needed to assist him with walking and prevent further fall. This also help him with his ADLs. He will follow up with Dr. Noel Johnson podiatry he will call [phone] and schedule an appointment as he does appointments in [place] once a month. He comes from [place] and patient understands to call Monday morning to schedule close follow-up. Departure - Departure Time of Disposition: 19:44 Disposition: Home, Self-Care 01 Condition: Good Clinical Impression: Right ankle injury Qualifiers: Encounter type: initial encounter Qualified Code(s): S99.911A - Unspecified injury of right ankle, initial encounter Fall Qualifiers: Encounter type: initial encounter Qualified Code(s): W19.XXXA - Unspecified fall, initial encounter Closed fibular fracture Qualifiers: Encounter type: initial encounter Fibula location: distal Fracture morphology: other fracture Laterality: right Qualified Code(s): S82.831A - Other fracture of upper and lower end of right fibula, initial encounter for closed fracture - Discharge Information *PRESCRIPTION DRUG MONITORING PROGRAM REVIEWED*: No *COPY OF PRESCRIPTION DRUG MONITORING REPORT IN PATIENT TOÑO: No Instructions: Nondisplaced Fibular Ankle Fracture Treated With Immobilization, Adult, Tibial and Fibular Fractures Referrals: Mal Gonsalez [employer] [Primary Care Provider] - Forms: ED Department Discharge Additional Instructions: follow up with Dr. Noel Johnson podiatry he will call [phone] and schedule an appointment as he does appointments in [place] once a month. if not able to see orthopedics, please f/u with your primary care physician this coming week. Tylenol for pain elevate the area, ice the area. weight bearing as tolerated, use the Front wheel walker, be very careful from falling. Sepsis Event Note (ED) - Evaluation Sepsis Screening Result: No Definite Risk - Focused Exam Vital Signs: Vital Signs Temp Pulse Resp BP Pulse Ox 09/12/20 19:30 99 F 61 20 129/66 98 09/12/20 18:36 98.8 F 68 16 115/71 97
[2020-09-12] MEDS: Acetaminophen 325 MG Tab PO ONE (18:58)
[2020-09-12 19:31] VITALS: BP 129/66; PULSE 61
--- NOTE | 2020-09-12 19:38 | CR ---
[id number] RAD/RAD Ankle Right 3V Min EXAM: RAD Ankle Right 3V Min INDICATION: INJURY COMPARISON: March 12, 2010. DISCUSSION: Acute minimally displaced distal fibula fracture. Lateral soft tissue swelling. Mild chronic irregularity of the medial malleolus and dorsal navicular. Mild tibiotalar osteoarthritis. Small plantar calcaneal spur and Achilles tendon attachment enthesophyte. IMPRESSION: 1. Acute minimally displaced distal fibula fracture. Stef Ricardo MD 09/12/201936 Thank you for allowing us to participate in the care of your patient.
== END 2020-09-12 20:30 | disposition home or self-care (01) ==
LOC: KA.ED 18:33
DX: S82.831A Other fracture of upper and lower end of right fibula, initial encounter for closed fracture (principal); L98.499 Non-pressure chronic ulcer of skin of other sites with unspecified severity; I10 Essential (primary) hypertension; I25.2 Old myocardial infarction; J44.9 Chronic obstructive pulmonary disease, unspecified; F41.9 Anxiety disorder, unspecified; F17.210 Nicotine dependence, cigarettes, uncomplicated; E66.9 Obesity, unspecified; Z68.20 Body mass index [BMI] 20.0-20.9, adult; Z91.030 Bee allergy status; Z88.5 Allergy status to narcotic agent; Z88.8 Allergy status to other drugs, medicaments and biological substances; Z79.01 Long term (current) use of anticoagulants; Z79.899 Other long term (current) drug therapy; X50.1XXA Overexertion from prolonged static or awkward postures, initial encounter; Y93.01 Activity, walking, marching and hiking
CPT/HCPCS: 73610; 99283; A9270